=== PATIENT | male | born 1940 | race Caucasian/White ===

== ENCOUNTER 2020-12-27 11:16 | Emergency (ER) | payer MEDICARE, OTHER, MEDICAID, SELFPAY ==
--- NOTE | ~2020-12-27 | CT_ITS ---
EXAMINATION: CT ABDOMEN AND PELVIS WITHOUT CONTRAST CLINICAL INFORMATION: Abdominal symptoms. Assess for small bowel obstruction. COMPARISON: CT abdomen and pelvis noncontrast 12/30/2019 TECHNIQUE: Multidetector volumetric imaging was performed from the superior aspect of the liver through the pubic symphysis. Sagittal and coronal reformatted images were obtained on the technologist's workstation. This CT examination was performed using dose optimization techniques as appropriate, variously including the following: *Automated exposure control *Adjustment of mA and/or kV according to patient size (this includes techniques or standardized protocols for targeted exams where dose is matched to indication/reason for exam; i.e. extremities or head) *Use of iterative reconstruction technique DLP: 1032 mGy-cm FINDINGS: LUNG BASES: Accentuated interstitial markings. Cardiomegaly with AICD, similar to prior study. LIVER, GALLBLADDER, AND BILIARY TREE: Normal in size and smooth in contour and uniform in attenuation. No focal hepatic parenchymal lesion. No intrahepatic ductal dilatation. The gallbladder is unremarkable with no evidence of radiopaque gallstones, gallbladder wall thickening, or obvious pericholecystic inflammatory changes. PANCREAS: Unremarkable. SPLEEN: Unremarkable. ADRENAL GLANDS: Unremarkable. KIDNEYS AND URETERS: The kidneys show no hydronephrosis, hydroureter, or interval perinephric stranding. There are perinephric connective tissue septations similar to prior imaging. No ureteral calculi. There is nonobstructing punctate calculus upper and lower pole left kidney under 4 mm. Bilateral renal cysts are again demonstrated largest left upper pole 4.8 cm and water attenuation. There is mildly complicated cyst lateral upper pole right kidney with some trace rim calcification again seen, 3.2 cm and water attenuation. No additional imaging required. BLADDER: Unremarkable. GASTROINTESTINAL TRACT: There is no bowel obstruction or focal inflammatory changes in the bowel or mesentery. There is moderate stool throughout the colon. The appendix is normal. No small bowel dilatation, pneumatosis, or free air. No ascites or fluid collection. ABDOMINAL WALL: Small fat-containing umbilical hernia and small fat-containing inguinal hernias again noted. LYMPH NODES: No lymphadenopathy. VASCULAR: Atherosclerotic calcifications vasculature. No aneurysmal enlargement or abdominal aorta. PELVIC VISCERA: Mild prostatic enlargement with some prostatic calcifications. OSSEOUS STRUCTURES: Status post vertebral augmentation for prominent compression fracture L1 since prior CT 2019. There is also prominent compression fracture without augmentation at L2 representing new finding from prior CT 2019. There are degenerative changes in the adjacent discs with vacuum disc phenomenon and bridging anterior osteophyte. No paraspinal soft tissue swelling. CT/CT abdomen pelvis wo con IMPRESSION: 1. Moderate stool throughout colon. No bowel obstruction or focal inflammatory changes. Normal appendix. 2. No biliary ductal dilatation. No hydronephrosis. 3. Prominent compression fracture L2, new from prior CT 12/30/2019. No paraspinal soft tissue swelling. Status post vertebral augmentation L1.
[2020-12-27 11:38] VITALS: BP 119/68; BP 150/91; PULSE 62; PULSE 64; RESP 16; TEMP 36.6; O2SAT 100; O2SAT 99; BMI 27.1
--- NOTE | 2020-12-27 11:48 | ED.ABDPAIN ---
HPI - Abdominal Pain General Chief Complaint: Abdominal Pain Stated Complaint: abd pain/constipation Time Seen by Provider: 12/27/20 11:25 Source: patient (Patient has vascular dementia), EMS and old records reviewed Mode of arrival: EMS Limitations: other (Patient has vascular dementia) History of Present Illness HPI narrative: Patient is a 80-year-old male with a past medical history of vascular dementia, CHF, HTN, AFib NOT on a blood thinner (was taken off for a break 6 months ago), constipation, HLD, sick sinus syndrome status post cardiac defibrillator, with a history of an old DE who presents with 3 days of constipation. Patient states he has abdominal pain but denies shortness of breath, chest pain, fever, nausea, vomiting, urinary symptoms her bloody or black stools. EMS states that his [facility] ([facility]) did imaging and found nothing abnormal. I spoke with patient's daughter, Fouzia Irwin, she said the patient has constipation is on a bowel regimen and is constantly complaining of abdominal pain, she is worried something else is going on and it is not just constipation. And that is why they decided to send him to the emergency room today. Spoke with Fouzia at [facility], she said he had an extra large BM yesterday, had a KUB 12/03/29 which only showed mild constipation, he was evaluated by psych because he is very ?bowel obsessed but nothing significant was found. She states it has a complaint of his almost daily but due to the bowel regimen, he does produce a bowel movement regularly. His vital signs have been stable recently any he has had no fevers. Related Data Allergies Allergy/AdvReac Type Severity Reaction Status Date / Time simvastatin [Zocor] Allergy Unknown Verified 11/28/19 00:00 Sulfa (Sulfonamide Allergy Unknown Verified 11/28/19 00:00 Antibiotics) DETERGENT Allergy Mild ITCHING Uncoded 02/22/20 16:32 SEASONAL ALLERGIES Allergy Mild RUNNY NOSE Uncoded 02/22/20 16:32 SNEEZING Review of Systems Review of Systems Yes all other systems are reviewed and are negative Physical Exam Vital Signs: Vital Signs: Last Vital Signs Temp 97.9 F 12/27/20 11:38 Pulse 62 12/27/20 11:38 Resp 16 12/27/20 11:38 BP 150/91 H 12/27/20 11:38 Pulse Ox 100 12/27/20 11:38 Body Mass Index 27.1 Const: General: cooperative, healthy appearing, comfortable, no acute distress and well developed Orientation/consciousness: patient oriented x3 Limitations: no limitations HENMT: Head: Yes normal to inspection Eyes: General: appearance normal, both eyes and all related structures Neck: Neck: Yes normal visual inspection and Yes full ROM Resp: Effort & Inspection: normal respiratory effort and able to speak in complete sentences Auscultation: clear to auscultation bilaterally Cardio: Rate: regular rate Rhythm: regular rhythm Heart sounds: normal S1 and S2 GI: Inspection: Yes normal to inspection Palpation (GI): Soft to palpation and nontender Skin: General skin exam: no rashes or lesions noted Neuro: General: patient oriented x3 Extrem: General: Yes normal to inspection Course Course Course Narrative: Patient is a 80-year-old male with a past medical history of vascular dementia, CHF, HTN, AFib not on a blood thinner, constipation, HLD, sick sinus syndrome status post cardiac defibrillator, with a history of an old DE who presents with 3 days of constipation. VSS, patient is well-appearing. Will get basic labs, give 1 L of LR, bisacodyl as well as lactulose. Reevaluation(s) Reevaluation #1: Spoke with the patient's daughter and the SNF, patient is wrong, he did have an extra large bowel movement yesterday. Will get abdominal CT scan as the the issue is not constipation, the issue is his chronic abdominal pain. Time: 12:00 Reevaluation #2: Labs all within normal limits except BUN 19 and Cr 1.46, slightly bump/CARLA, pending CT scan. Spoke with patient's daughter, reviewed his bowel regimen, he is currently on these ago deal p.o. and p.r., Colace, Fleet enema, lactulose (two different strengths), Maalox, MiraLax, senna and simethicone. I recommended bringing him to a GI doctor to have these meds reviewed to figure out which ones he actually needs according to the reason for his constipation and maybe he is on too many and this could be the source of his abdominal pain. Time: 13:32 Time: 13:48 MDM - Abdominal Pain Medical Records Attestation: I reviewed the patient's medical records. Lab Data Attestation: I reviewed the patient's lab results. Result diagrams: 12/27/20 12:10 12/27/20 12:10 Labs: Lab Results 12/27/20 12/27/20 12/27/20 Range/Units 12:10 12:10 12:10 WBC 5.1 (4.8-10.8) X10*3/uL RBC 4.21 L (4.60-5.80) X10*6/uL Hgb 13.2 L (14.0-18.0) g/dl Hct 41.1 L (42-52) % MCV 97.6 (80-98) fL MCH 31.4 (27.0-33.0) pg MCHC 32.1 (31.0-36.0) g/dl RDW 13.8 (11.0-16.0) % Plt Count 204 (160-400) X10*3/uL MPV 8.2 L (9.4-12.4) fL Immature Gran % (Auto) 0.6 H (0.0-0.4) % Neut % (Auto) 69.3 (45-73) % Lymph % (Auto) 15.0 L (20-40) % [place] % (Auto) 10.2 (2-11) % Eos % (Auto) 4.3 H (0-4) % Baso % (Auto) 0.6 (0-2) % Lymph # (Auto) 0.8 L (1.2-4.9) X10*3/uL [place] # (Auto) 0.5 (0.1-1.2) X10*3/uL Eos # (Auto) 0.2 (0.0-0.4) X10*3/uL Baso # (Auto) 0.0 (0.0-0.2) X10*3/uL Abs Immat Gran (auto) 0.03 (0.00-0.03) X10*3/uL Absolute Neuts (auto) 3.6 (2.0-8.3) X10*3/uL Absolute Nucleated RBC 0.000 (0.0-0.012) X10*3/uL Nucleated RBC % (auto) 0.0 (0.0-0.2) /100WBC PT 12.8 (9.9-13.0) SEC INR 1.1 (0.9-1.1) APTT 32.2 (24.1-38.0) SEC Sodium 136 (135-145) mmol/L Potassium 4.8 (3.3-5.1) mmol/L Chloride 104 (96-108) mmol/L Carbon Dioxide 25 (22-29) mmol/L Anion Gap 12 (12-20) BUN 19 H (9-16) mg/dL Creatinine 1.46 H (0.5-1.4) mg/dL Estim Creat Clear Calc 43.5 Estimated GFR 46 Random Glucose 106 (60-115) mg/dL Calcium 9.2 (8.4-10.2) mg/dL Urine Color Urine Appearance Urine pH (5.0-8.0) Ur Specific [place] (1.005-1.025) Urine Protein (NEG-TRACE) MG/DL Urine Glucose (UA) (NEG) MG/DL Urine Ketones (NEG) MG/DL Urine Blood (NEG) Urine Nitrite (NEG) Ur Leukocyte Esterase (NEG) 12/27/20 Range/Units 12:33 WBC (4.8-10.8) X10*3/uL RBC (4.60-5.80) X10*6/uL Hgb (14.0-18.0) g/dl Hct (42-52) % MCV (80-98) fL MCH (27.0-33.0) pg MCHC (31.0-36.0) g/dl RDW (11.0-16.0) % Plt Count (160-400) X10*3/uL MPV (9.4-12.4) fL Immature Gran % (Auto) (0.0-0.4) % Neut % (Auto) (45-73) % Lymph % (Auto) (20-40) % [place] % (Auto) (2-11) % Eos % (Auto) (0-4) % Baso % (Auto) (0-2) % Lymph # (Auto) (1.2-4.9) X10*3/uL [place] # (Auto) (0.1-1.2) X10*3/uL Eos # (Auto) (0.0-0.4) X10*3/uL Baso # (Auto) (0.0-0.2) X10*3/uL Abs Immat Gran (auto) (0.00-0.03) X10*3/uL Absolute Neuts (auto) (2.0-8.3) X10*3/uL Absolute Nucleated RBC (0.0-0.012) X10*3/uL Nucleated RBC % (auto) (0.0-0.2) /100WBC PT (9.9-13.0) SEC INR (0.9-1.1) APTT (24.1-38.0) SEC Sodium (135-145) mmol/L Potassium (3.3-5.1) mmol/L Chloride (96-108) mmol/L Carbon Dioxide (22-29) mmol/L Anion Gap (12-20) BUN (9-16) mg/dL Creatinine (0.5-1.4) mg/dL Estim Creat Clear Calc Estimated GFR Random Glucose (60-115) mg/dL Calcium (8.4-10.2) mg/dL Urine Color YELLOW Urine Appearance CLEAR Urine pH 6.0 (5.0-8.0) Ur Specific [place] 1.010 (1.005-1.025) Urine Protein NEG (NEG-TRACE) MG/DL Urine Glucose (UA) NEG (NEG) MG/DL Urine Ketones NEG (NEG) MG/DL Urine Blood NEG (NEG) Urine Nitrite NEG (NEG) Ur Leukocyte Esterase NEG (NEG) Imaging Data CT scan - abdomen: Attestation: I personally reviewed and interpreted this imaging study as follows: Radiologist's impression: [address] Scan ReportSigned Patient: Bjorn Irwin RMR#: [id number]: 9Acct:[id number]/Sex: 80 / MADM Date: 12/27/20Loc: [address] Dr: Ordering Physician: Kimmy Blank PA-C Date of Service: 12/27/20 Procedure(s): CT abdomen pelvis wo con Accession Number(s): [id number] cc: Kimmy Blank PA-C~ EXAMINATION: CT ABDOMEN AND PELVIS WITHOUT CONTRAST CLINICAL INFORMATION: Abdominal symptoms. Assess for small bowel obstruction. COMPARISON: CT abdomen and pelvis noncontrast 12/30/2019 TECHNIQUE: Multidetector volumetric imaging was performed from the superior aspect of the liver through the pubic symphysis. Sagittal and coronal reformatted images were obtained on the technologist's workstation. This CT examination was performed using dose optimization techniques as appropriate, variously including the following: *Automated exposure control *Adjustment of mA and/or kV according to patient size (this includes techniques or standardized protocols for targeted exams where dose is matched to indication/reason for exam; i.e. extremities or head) *Use of iterative reconstruction technique DLP: 1032 mGy-cm FINDINGS: LUNG BASES: Accentuated interstitial markings. Cardiomegaly with AICD, similar to prior study. LIVER, GALLBLADDER, AND BILIARY TREE: Normal in size and smooth in contour and uniform in attenuation. No focal hepatic parenchymal lesion. No intrahepatic ductal dilatation. The gallbladder is unremarkable with no evidence of radiopaque gallstones, gallbladder wall thickening, or obvious pericholecystic inflammatory changes. PANCREAS: Unremarkable. SPLEEN: Unremarkable. ADRENAL GLANDS: Unremarkable. KIDNEYS AND URETERS: The kidneys show no hydronephrosis, hydroureter, or interval perinephric stranding. There are perinephric connective tissue septations similar to prior imaging. No ureteral calculi. There is nonobstructing punctate calculus upper and lower pole left kidney under 4 mm. Bilateral renal cysts are again demonstrated largest left upper pole 4.8 cm and water attenuation. There is mildly complicated cyst lateral upper pole right kidney with some trace rim calcification again seen, 3.2 cm and water attenuation. No additional imaging required. BLADDER: Unremarkable. GASTROINTESTINAL TRACT: There is no bowel obstruction or focal inflammatory changes in the bowel or mesentery. There is moderate stool throughout the colon. The appendix is normal. No small bowel dilatation, pneumatosis, or free air. No ascites or fluid collection. ABDOMINAL WALL: Small fat-containing umbilical hernia and small fat-containing inguinal hernias again noted. LYMPH NODES: No lymphadenopathy. VASCULAR: Atherosclerotic calcifications vasculature. No aneurysmal enlargement or abdominal aorta. PELVIC VISCERA: Mild prostatic enlargement with some prostatic calcifications. OSSEOUS STRUCTURES: Status post vertebral augmentation for prominent compression fracture L1 since prior CT 2019. There is also prominent compression fracture without augmentation at L2 representing new finding from prior CT 2019. There are degenerative changes in the adjacent discs with vacuum disc phenomenon and bridging anterior osteophyte. No paraspinal soft tissue swelling. CT/CT abdomen pelvis wo con IMPRESSION: 1. Moderate stool throughout colon. No bowel obstruction or focal inflammatory changes. Normal appendix. 2. No biliary ductal dilatation. No hydronephrosis. 3. Prominent compression fracture L2, new from prior CT 12/30/2019. No paraspinal soft tissue swelling. Status post vertebral augmentation L1. Dictated By:ROWENA ESPINOZA MDSigned By:<Electronically signed by ROWENA ESPINOZA MD in OV>12/27/20 1336 DD/ 1210TD/TT: S[employer] Supervisor: SOLO Discharge Plan Discharge Clinical Impression: Chronic constipation, CARLA (acute kidney injury) Abdominal pain Qualifiers: Abdominal location: periumbilical Qualified Code(s): R10.33 - Periumbilical pain Patient Disposition: Xfer SNF Transfer Details: Patient lives at [facility] Instructions: Abdominal Pain (ED) Additional Instructions: Today, the patient's labs were reflective of a slight CARLA, his BUN was elevated at 19 and his Cr was 1.46, please repeat these labs on Wednesday to ensure they have gone back down to the normal range. Again, they are just a small bump above normal and is likely due to a little bit of dehydration. I have put a referral in for GI doctor so the patient can review his bowel regimen with the GI doctor to figure out why he is chronically constipated and which meds would be best for him. His bowel regimen is quite comprehensive and could be the source of his abdominal pain. The abdominal and pelvic CT scan was negative for any acute issues. The only change was a prominent compression fracture at L2 which the patient's daughter said they are aware of. Referrals: Kristan Valera MD [Physician] - 2 days (chronic abdominal pain and constipation, need to review bowel regimen) [facility] Past Medical History Medical History Afib Cardiac defibrillator in place CHF (congestive heart failure) Constipation Coronary artery disease HLD (hyperlipidemia) HTN (hypertension) Low back pain Myocardial infarct Osteoporosis Sick sinus syndrome Vascular dementia Vitamin D deficiency Social History Social History Alcohol intake: never Patient Tobacco Use Status: Never used Tobacco Use of substances other than those prescribed or required for medical reasons: No Advance Directives: No Advance Directives Information Provided: Yes
[2020-12-27] MEDS: Lactulose 20 GM/30 ML SOLUTION PO (11:50)
[2020-12-27] MEDS: bisacodyL 5 MG TABLET.DR PO (11:50)
[2020-12-27 12:15] LABS: MANUAL DIFF FLAG NO
[2020-12-27 12:23] LABS: INTERNATIONAL NORM RATIO 1.1 (0.9-1.1); Prothrombin Time 12.8 SEC (9.9-13.0)
[2020-12-27 12:25] LABS: Partial Thromboplastin Time 32.2 SEC (24.1-38.0)
[2020-12-27 12:28] LABS: Basophils Percent Auto 0.6 % (0-2); Eosinophils Absolute Auto 0.2 X10*3/uL (0.0-0.4); Eosinophils Percent Auto 4.3 % (0-4); Hematocrit 41.1 % (42-52); Hemoglobin 13.2 g/dl (14.0-18.0); Imm Gran Abs Auto 0.03 X10*3/uL (0.00-0.03); Imm Gran Pct Auto 0.6 % (0.0-0.4); Lymphocytes Absolute Auto 0.8 X10*3/uL (1.2-4.9); Mean Corpuscular HGB Conc 32.1 g/dl (31.0-36.0); Mean Corpuscular Hemoglobin 31.4 pg (27.0-33.0); Mean Corpuscular Volume 97.6 fL (80-98); Mean Platelet Volume 8.2 fL (9.4-12.4); Monocytes Absolute Auto 0.5 X10*3/uL (0.1-1.2); Monocytes Percent Auto 10.2 % (2-11); Neutrophils Absolute Auto 3.6 X10*3/uL (2.0-8.3); Neutrophils Percent Auto 69.3 % (45-73); Platelet Count 204 X10*3/uL (160-400); Red Blood Count 4.21 X10*6/uL (4.60-5.80); Red Cell Distribution Width 13.8 % (11.0-16.0); White Blood Count 5.1 X10*3/uL (4.8-10.8)
[2020-12-27 12:41] LABS: Appearance Urine CLEAR; Color Urine YELLOW; Glucose Urine UA NEG (NEG); Leukocyte Esterase Urine NEG (NEG); Nitrite Urine NEG (NEG); Urine Blood NEG (NEG); Urine Ketones NEG (NEG); Urine Protein NEG (NEG-TRACE)
[2020-12-27 12:52] LABS: Anion Gap 12 (12-20); Blood Urea Nitrogen 19 mg/dL (9-16); Calcium 9.2 mg/dL (8.4-10.2); Carbon Dioxide 25 mmol/L (22-29); Chloride 104 mmol/L (96-108); Creatinine Clr Calc Pharmacy 43.5; Estimated Glomerular Filt Rate 46; Glucose Random 106 mg/dL (60-115); Potassium 4.8 mmol/L (3.3-5.1); Sodium 136 mmol/L (135-145)
== END 2020-12-27 15:48 | disposition skilled nursing facility (03) ==
PROVIDERS: Physician Assistant; Emergency Provider Emergency Medicine Emergency Medical Services; PCP Family Medicine
DX: K59.09 Other constipation (principal); N17.9 Acute kidney failure, unspecified; R10.33 Periumbilical pain; I48.91 Unspecified atrial fibrillation; I11.0 Hypertensive heart disease with heart failure; I50.9 Heart failure, unspecified; I25.2 Old myocardial infarction; Z95.810 Presence of automatic (implantable) cardiac defibrillator
CPT/HCPCS: 36415; 74176; 80048; 81003; 85025; 85610; 85730; 96360; 99284

== ENCOUNTER → 2021-02-04 14:44 | Outpatient (BNVA) | payer MEDICARE, OTHER, SELFPAY | PROVIDERS: PCP Family Medicine; Referring Provider Family Medicine; Visit Provider Nurse Practitioner Family | DX: K58.1 Irritable bowel syndrome with constipation (principal); R10.9 Unspecified abdominal pain; R14.0 Abdominal distension (gaseous) | CPT/HCPCS: 99202 ==

== ENCOUNTER → 2021-03-04 15:02 | Outpatient (BNVA) | payer MEDICARE, OTHER, SELFPAY | PROVIDERS: PCP Family Medicine; Referring Provider Family Medicine; Visit Provider Nurse Practitioner Family | DX: K59.04 Chronic idiopathic constipation (principal); K58.1 Irritable bowel syndrome with constipation; R10.9 Unspecified abdominal pain | CPT/HCPCS: 99212 ==

== ENCOUNTER 2021-05-20 06:03 | Inpatient (IN) | payer MEDICARE, OTHER, SELFPAY ==
[2021-05-20] VITALS (10 sets, daily range): BP systolic 137–199; BP diastolic 63–100; PULSE 55–67; RESP 18–34; TEMP 36.1–36.7; O2SAT 94–99; BMI 27.1; BMI 25.8
--- NOTE | ~2021-05-20 | CT_ITS ---
EXAMINATION: CT HEAD WITHOUT CONTRAST CLINICAL INFORMATION: AMS and hypoxia COMPARISON: None TECHNIQUE: Contiguous axial imaging was performed from the skull base to vertex without intravenous administration of contrast. This CT examination was performed using dose optimization techniques as appropriate, variously including the following: *Automated exposure control *Adjustment of mA and/or kV according to patient size (this includes techniques or standardized protocols for targeted exams where dose is matched to indication/reason for exam; i.e. extremities or head) *Use of iterative reconstruction technique DLP: 1745 mGy-cm FINDINGS: There is no evidence of acute intracranial hemorrhage or territorial infarction. No abnormal mass effect or midline shift is seen. Chen to white matter differentiation is well preserved. No extra-axial fluid collections are identified. The lateral ventricles are symmetrical but enlarged. There is diffuse periarticular hypodensity suggestive of chronic small vessel ischemic changes. The osseous structures and soft tissues are normal. The mastoid air cells and visualized portions of the paranasal sinuses are well aerated. CT/CT head/brain wo con IMPRESSION: No acute intracranial process seen.
--- NOTE | ~2021-05-20 | XR_ITS ---
EXAMINATION: XR CHEST CLINICAL INFORMATION: Shortness of breath. COMPARISON: 05/17/2018 TECHNIQUE: Frontal view of the chest was obtained. FINDINGS: Left chest wall pacer is unchanged. Low lung volumes. Increased patchy bilateral airspace opacities. Small right pleural effusion noted. No pneumothorax. The cardiomediastinal silhouette and appears prominent with a calcified aorta. XR/XR chest 1V IMPRESSION: Small right pleural effusion. Patchy bilateral opacities could be infectious or inflammatory. Edema is also a possibility.
--- NOTE | 2021-05-20 06:15 | ECG_ITS ---
Test Reason : SOB Blood Pressure : / mmHG Vent. Rate : 059 BPM Atrial Rate : 067 BPM P-R Int : 000 ms QRS Dur : 132 ms QT Int : 478 ms P-R-T Axes : 000 036 238 degrees QTc Int : 473 ms Poor data quality Atrial fibrillation Non-specific intra-ventricular conduction block Cannot rule out Inferior infarct (cited on or before 01-AUG-2002) Cannot rule out Anteroseptal infarct (cited on or before 03-AUG-2002) T wave abnormality, consider lateral ischemia Abnormal ECG When compared with ECG of 30-DEC-2019 05:56, QRS duration has increased Referred By: Brianna Garay Electronically Signed By:ANA PETTIT MD
[2021-05-20 06:31] LABS: MANUAL DIFF FLAG NO
[2021-05-20 06:32] LABS: Basophils Percent Auto 0.4 % (0-2); Eosinophils Absolute Auto 0.2 X10*3/uL (0.0-0.4); Eosinophils Percent Auto 2.5 % (0-4); Hematocrit 44.6 % (42.0-52.0); Hemoglobin 13.8 g/dl (14.0-18.0); Imm Gran Abs Auto 0.02 X10*3/uL (0.00-0.03); Imm Gran Pct Auto 0.3 % (0.0-0.4); Lymphocytes Absolute Auto 0.9 X10*3/uL (1.2-4.9); Lymphocytes Percent Auto 12.6 % (20-40); Mean Corpuscular HGB Conc 30.9 g/dl (31.0-36.0); Mean Corpuscular Hemoglobin 30.5 pg (27.0-33.0); Mean Corpuscular Volume 98.5 fL (80.0-98.0); Mean Platelet Volume 9.4 fL (9.4-12.4); Monocytes Absolute Auto 0.8 X10*3/uL (0.1-1.2); Monocytes Percent Auto 11.6 % (2-11); Neutrophils Percent Auto 72.6 % (45-73); Platelet Count 150 X10*3/uL (160-400); Red Blood Count 4.53 X10*6/uL (4.60-5.80); Red Cell Distribution Width 14.7 % (11.0-16.0); White Blood Count 6.9 X10*3/uL (4.8-10.8)
[2021-05-20 06:36] LABS: Venous Blood Gas Refer to POC result
[2021-05-20 06:38] LABS: VBG Base Excess 0.4 mmol/L; VBG HCO3 21 mmol/L (22-26); VBG pCO2 26 mmHg; VBG pH 7.51 (7.32-7.43); VBG pO2 62 mmHg
[2021-05-20 06:43] LABS: Lactic Acid 1.4 mmol/L (0.5-2.0)
[2021-05-20 06:46] LABS: COVID-19 Test Negative (Negative); IDNOW Serial# 9DD0AD1C
[2021-05-20 06:49] LABS: Alanine Aminotransferase 22 U/L (0-40); Albumin Level 3.6 g/dL (3.5-5.0); Alkaline Phosphatase 103 U/L (39-117); Anion Gap 16 (12-20); Aspartate Amino Transferase 43 U/L (5-37); Bilirubin Total 2.2 mg/dL (0.0-1.0); Blood Urea Nitrogen 28 mg/dL (9-16); Calcium 8.7 mg/dL (8.4-10.2); Carbon Dioxide 21 mmol/L (22-29); Chloride 113 mmol/L (96-108); Creatinine Clr Calc Pharmacy 43.2; Estimated Glomerular Filt Rate 46; Glucose Random 78 mg/dL (60-115); Potassium 4.5 mmol/L (3.3-5.1); Sodium 145 mmol/L (135-145); Total Protein 7.2 g/dL (6.5-8.0)
[2021-05-20 06:49] LABS: INTERNATIONAL NORM RATIO 1.3 (0.9-1.1); Prothrombin Time 14.5 SEC (9.9-13.0)
--- NOTE | 2021-05-20 06:49 | ED_ITS ---
HPI - SOB/Dyspnea General Chief Complaint: Dyspnea Stated Complaint: sob Time Seen by Provider: 05/20/21 06:15 Source: EMS Mode of arrival: EMS Limitations: altered mental status History of Present Illness HPI Narrative: Patient [facility] the emergency room [facility] since the patient was sleeping in early today, the staff at the nursing facility phone him with an oxygen saturation in the mid 80s, not in respiratory distress. EMS for the patient on 4 L which increased to 95%. Fadia ent is nonverbal at baseline. Related Data Home Medications Medication Instructions Recorded Confirmed alendronate 70 mg tablet 70 mg PO QWEEK 02/04/21 amiodarone 200 mg tablet 200 mg PO DAILY 02/04/21 atorvastatin 40 mg tablet 40 mg PO DAILY 02/04/21 carvedilol 3.125 mg tablet 3.125 mg PO BID 02/04/21 carvedilol 6.25 mg tablet 6.25 mg PO BID 02/04/21 fluvoxamine 100 mg tablet 100 mg PO BEDTIME 02/04/21 fluvoxamine 50 mg tablet 50 mg PO BEDTIME 02/04/21 folic acid 1 mg tablet 1 mg PO DAILY 02/04/21 furosemide 40 mg tablet 40 mg PO DAILY 02/04/21 lactulose 10 gram/15 mL oral ml PO 02/04/21 solution mirtazapine 15 mg tablet 7.5 mg PO DAILY 02/04/21 mirtazapine 7.5 mg tablet 7.5 mg PO BEDTIME 02/04/21 omeprazole 20 mg capsule,delayed 20 mg PO BID 02/04/21 release potassium chloride 10 mEq 10 meq PO BID 02/04/21 tablet,extended release(part/cryst) potassium chloride 20 mEq 20 meq PO DAILY 02/04/21 tablet,extended release(part/cryst) quetiapine 25 mg tablet mg PO 02/04/21 trazodone 50 mg tablet 50 mg PO BEDTIME 02/04/21 Previous Rx's Medication Instructions Recorded methylcellulose (laxative) 500 mg 500 mg PO DAILY #30 tab 02/04/21 tablet (Citrucel) sennosides 8.6 mg tablet (Natural 8.6 mg PO BEDTIME #30 tab 02/04/21 Senna Laxative) linaclotide 290 mcg capsule 290 mcg PO QAM #30 cap 03/04/21 (Linzess) Allergies Allergy/AdvReac Type Severity Reaction Status Date / Time simvastatin [Zocor] Allergy Unknown Unknown Verified 03/04/21 15:12 Sulfa (Sulfonamide Allergy Unknown Unknown Verified 03/04/21 15:12 Antibiotics) DETERGENT Allergy Mild ITCHING Uncoded 02/22/20 16:32 SEASONAL ALLERGIES Allergy Mild RUNNY NOSE Uncoded 02/22/20 16:32 SNEEZING Review of Systems Review of Systems: Yes Unobtainable due to mental condition [facility] Past Medical History Medical History Afib Cardiac defibrillator in place CHF (congestive heart failure) Constipation Coronary artery disease HLD (hyperlipidemia) HTN (hypertension) Low back pain Myocardial infarct Osteoporosis Sick sinus syndrome Vascular dementia Vitamin D deficiency Social History Social History Alcohol intake: never Patient Tobacco Use Status: Never used Tobacco Advance Directives: No Advance Directives Information Provided: Yes Physical Exam Vital Signs: Vital Signs: Last Vital Signs Temp 97.7 F 05/20/21 06:20 Pulse 60 05/20/21 07:31 Resp 18 05/20/21 07:31 BP 146/79 H 05/20/21 07:31 Pulse Ox 94 05/20/21 07:31 Oxygen Flow Rate 4 05/20/21 06:20 BMI result Body Mass Index 27.1 Const: Other: Appearance: Somnolent, with subcu sternal rub. Eyes: Pupils equal, round and reactive to light. ENT: Pharynx normal. Neck: Normal inspection. Neck supple. No lymph nodes noted. No crepitus CVS: Normal heart rate and rhythm. Pulses normal. Normal S1 and S2 Respiratory: No respiratory distress. Breath sounds normal. No Wheezing. No rales . Patient is 95% on room air. When he eats his oxygen does drop to the high 80s, but repositions and the oxygen increases back to the mid 90s on room air Abdomen: Soft and nontender. No rigidity. No distention. Skin: Skin warm and dry. Normal skin color. Normal skin turgor. Extremities: No lower extremity edema. No Lacerations. No Rash Neuro: Oriented X 3. No motor deficit. No sensory deficit. Moving all extermities. No slurred speech. Course Course Course Narrative: Patient has an elevated BNP of 1700. Patient's chest x-ray shows right pleural effusions, likely causing the episodes of hypoxia. Patient being admitted for CHF exacerbation. Patient was given 40 mg of IV Lasix MDM - SOB/Dyspnea Lab Data Result diagrams: 05/20/21 06:25 05/20/21 06:25 Labs: Lab Results 05/20/21 05/20/21 05/20/21 Range/Units 06:25 06:25 06:25 WBC 6.9 (4.8-10.8) X10*3/uL RBC 4.53 L (4.60-5.80) X10*6/uL Hgb 13.8 L (14.0-18.0) g/dl Hct 44.6 (42.0-52.0) % MCV 98.5 H (80.0-98.0) fL MCH 30.5 (27.0-33.0) pg MCHC 30.9 L (31.0-36.0) g/dl RDW 14.7 (11.0-16.0) % Plt Count 150 L (160-400) X10*3/uL MPV 9.4 (9.4-12.4) fL Immature Gran % (Auto) 0.3 (0.0-0.4) % Neut % (Auto) 72.6 (45-73) % Lymph % (Auto) 12.6 L (20-40) % [place] % (Auto) 11.6 H (2-11) % Eos % (Auto) 2.5 (0-4) % Baso % (Auto) 0.4 (0-2) % Lymph # (Auto) 0.9 L (1.2-4.9) X10*3/uL [place] # (Auto) 0.8 (0.1-1.2) X10*3/uL Eos # (Auto) 0.2 (0.0-0.4) X10*3/uL Baso # (Auto) 0.0 (0.0-0.2) X10*3/uL Abs Immat Gran (auto) 0.02 (0.00-0.03) X10*3/uL Absolute Neuts (auto) 5.0 (2.0-8.3) x10*3/uL Absolute Nucleated RBC 0.000 (0.0-0.012) X10*3/uL Nucleated RBC % (auto) 0.0 (0.0-0.2) /100WBC PT (9.9-13.0) SEC INR (0.9-1.1) VBG pH (7.32-7.43) VBG pCO2 mmHg VBG pO2 mmHg VBG HCO3 (22-26) mmol/L VBG O2 Saturation % VBG Base Excess mmol/L Sodium 145 (135-145) mmol/L Potassium 4.5 (3.3-5.1) mmol/L Chloride 113 H (96-108) mmol/L Carbon Dioxide 21 L (22-29) mmol/L Anion Gap 16 (12-20) BUN 28 H (9-16) mg/dL Creatinine 1.47 H (0.5-1.4) mg/dL Estim Creat Clear Calc 43.2 Estimated GFR 46 Random Glucose 78 (60-115) mg/dL Lactic Acid (0.5-2.0) mmol/L Calcium 8.7 (8.4-10.2) mg/dL Total Bilirubin 2.2 H (0.0-1.0) mg/dL AST 43 H (5-37) U/L ALT 22 (0-40) U/L Alkaline Phosphatase 103 (39-117) U/L B-Natriuretic Peptide 1788 H (<100) pg/mL Total Protein 7.2 (6.5-8.0) g/dL Albumin 3.6 (3.5-5.0) g/dL COVID-19 (KYLE) (Negative) COVID-19 Clin Com 05/20/21 05/20/21 05/20/21 Range/Units 06:25 06:25 06:28 WBC (4.8-10.8) X10*3/uL RBC (4.60-5.80) X10*6/uL Hgb (14.0-18.0) g/dl Hct (42.0-52.0) % MCV (80.0-98.0) fL MCH (27.0-33.0) pg MCHC (31.0-36.0) g/dl RDW (11.0-16.0) % Plt Count (160-400) X10*3/uL MPV (9.4-12.4) fL Immature Gran % (Auto) (0.0-0.4) % Neut % (Auto) (45-73) % Lymph % (Auto) (20-40) % [place] % (Auto) (2-11) % Eos % (Auto) (0-4) % Baso % (Auto) (0-2) % Lymph # (Auto) (1.2-4.9) X10*3/uL [place] # (Auto) (0.1-1.2) X10*3/uL Eos # (Auto) (0.0-0.4) X10*3/uL Baso # (Auto) (0.0-0.2) X10*3/uL Abs Immat Gran (auto) (0.00-0.03) X10*3/uL Absolute Neuts (auto) (2.0-8.3) x10*3/uL Absolute Nucleated RBC (0.0-0.012) X10*3/uL Nucleated RBC % (auto) (0.0-0.2) /100WBC PT (9.9-13.0) SEC INR (0.9-1.1) VBG pH 7.51 H (7.32-7.43) VBG pCO2 26 mmHg VBG pO2 62 mmHg VBG HCO3 21 L (22-26) mmol/L VBG O2 Saturation 85.0 % VBG Base Excess 0.4 mmol/L Sodium (135-145) mmol/L Potassium (3.3-5.1) mmol/L Chloride (96-108) mmol/L Carbon Dioxide (22-29) mmol/L Anion Gap (12-20) BUN (9-16) mg/dL Creatinine (0.5-1.4) mg/dL Estim Creat Clear Calc Estimated GFR Random Glucose (60-115) mg/dL Lactic Acid 1.4 (0.5-2.0) mmol/L Calcium (8.4-10.2) mg/dL Total Bilirubin (0.0-1.0) mg/dL AST (5-37) U/L ALT (0-40) U/L Alkaline Phosphatase (39-117) U/L B-Natriuretic Peptide (<100) pg/mL Total Protein (6.5-8.0) g/dL Albumin (3.5-5.0) g/dL COVID-19 (KYLE) Negative (Negative) COVID-19 Clin Com See Note 05/20/21 Range/Units 06:37 WBC (4.8-10.8) X10*3/uL RBC (4.60-5.80) X10*6/uL Hgb (14.0-18.0) g/dl Hct (42.0-52.0) % MCV (80.0-98.0) fL MCH (27.0-33.0) pg MCHC (31.0-36.0) g/dl RDW (11.0-16.0) % Plt Count (160-400) X10*3/uL MPV (9.4-12.4) fL Immature Gran % (Auto) (0.0-0.4) % Neut % (Auto) (45-73) % Lymph % (Auto) (20-40) % [place] % (Auto) (2-11) % Eos % (Auto) (0-4) % Baso % (Auto) (0-2) % Lymph # (Auto) (1.2-4.9) X10*3/uL [place] # (Auto) (0.1-1.2) X10*3/uL Eos # (Auto) (0.0-0.4) X10*3/uL Baso # (Auto) (0.0-0.2) X10*3/uL Abs Immat Gran (auto) (0.00-0.03) X10*3/uL Absolute Neuts (auto) (2.0-8.3) x10*3/uL Absolute Nucleated RBC (0.0-0.012) X10*3/uL Nucleated RBC % (auto) (0.0-0.2) /100WBC PT 14.5 H (9.9-13.0) SEC INR 1.3 H (0.9-1.1) VBG pH (7.32-7.43) VBG pCO2 mmHg VBG pO2 mmHg VBG HCO3 (22-26) mmol/L VBG O2 Saturation % VBG Base Excess mmol/L Sodium (135-145) mmol/L Potassium (3.3-5.1) mmol/L Chloride (96-108) mmol/L Carbon Dioxide (22-29) mmol/L Anion Gap (12-20) BUN (9-16) mg/dL Creatinine (0.5-1.4) mg/dL Estim Creat Clear Calc Estimated GFR Random Glucose (60-115) mg/dL Lactic Acid (0.5-2.0) mmol/L Calcium (8.4-10.2) mg/dL Total Bilirubin (0.0-1.0) mg/dL AST (5-37) U/L ALT (0-40) U/L Alkaline Phosphatase (39-117) U/L B-Natriuretic Peptide (<100) pg/mL Total Protein (6.5-8.0) g/dL Albumin (3.5-5.0) g/dL COVID-19 (KYLE) (Negative) COVID-19 Clin Com Discharge Plan Discharge Clinical Impression: Congestive heart failure Patient Disposition: Admitted As Inpatient Prescriptions: No Action Citrucel 500 mg tablet 500 mg PO DAILY Qty: 30 RF: 2 sennosides [Natural Senna Laxative] 8.6 mg tablet 8.6 mg PO BEDTIME Qty: 30 RF: 2 Linzess 290 mcg capsule 290 mcg PO QAM Qty: 30 RF: 4
[2021-05-20 07:18] LABS: B Type Natriuretic Peptide 1788 pg/mL (<100)
[2021-05-20 08:52] LABS: Troponin-I High Sensitivity 23.2 ng/L (<3.5-35.0)
[2021-05-20 08:54] LABS: Appearance Urine CLEAR; Color Urine YELLOW; Glucose Urine UA NEG (NEG); Leukocyte Esterase Urine NEG (NEG); Nitrite Urine NEG (NEG); PH 5.5 (5.0-8.0); Specific Gravity - Urine 1.025 (1.005-1.025); Urine Blood NEG (NEG); Urine Ketones 5 MG/DL (NEG); Urine Protein NEG (NEG-TRACE)
--- NOTE | 2021-05-20 09:05 | PM.IMHP ---
History of Present Illness Date of Service: 05/20/21 Chief Complaint: hypoxia This is an 80 yo M with a PMH as outlined below who is a resident at a local long term facility. He is brought in by ambulace due to hypoxia at the SNF. History is obtained from the ED provider's notes and phone conversation with the patients daughters notes as the patient is currently unable to give any meaningful history. Reportely, at the SNF -- the patient was noted to have some hypoxia in the 80s (on RA) while sleeping. This did not improve and so paramedics were called. He was placed on 4L oxygen by [place] with improvement of his oxygen saturation into the 90s. Upon arrival to the ED -- the patient had stable oxygenation on 3-4L. His other vital signs were also acceptable. His work up in the ED showed an elevated BNP and a chest XR suggestive of CHF. He was given a dose of IV lasix 40 and admission was requested. Per the discussion with the patients daughters (both of whom are health care proxys) -- their father was treated for a pneumonia over the last 1-2 weeks. His daughter Fouzia, who lives locally, has noticed that since , he has become less active and at times visibly short of breath. He was also more confused than his baseline. When I saw the patient in the ED, he was asleep. He did move to painful stimuli, but was not speaking. Review of Systems Review of Systems: unable to obtain due to patients current mental status [facility] Medical History Afib Cardiac defibrillator in place CHF (congestive heart failure) Constipation Coronary artery disease HLD (hyperlipidemia) HTN (hypertension) Low back pain Myocardial infarct Osteoporosis Sick sinus syndrome Vascular dementia Vitamin D deficiency Family History (Updated 05/20/21 @ 09:11 by Carmelo Colby MD) Other CAD (coronary artery disease) Pertinent family history: CAD in his father and son Surgical History (Updated 05/20/21 @ 09:12 by Carmelo Colby MD) History of permanent cardiac pacemaker placement Social History Alcohol intake: never Patient Tobacco Use Status: Never used Tobacco Meds Allergies Allergy/AdvReac Type Severity Reaction Status Date / Time simvastatin [Zocor] Allergy Unknown Unknown Verified 03/04/21 15:12 Sulfa (Sulfonamide Allergy Unknown Unknown Verified 03/04/21 15:12 Antibiotics) DETERGENT Allergy Mild ITCHING Uncoded 02/22/20 16:32 SEASONAL ALLERGIES Allergy Mild RUNNY NOSE Uncoded 02/22/20 16:32 SNEEZING Active Medications: Current Medications Acetaminophen (Acetaminophen 325 Mg Tablet) 650 mg PO Q6H PRN PRN Reason: Pain, Mild (Pain Scale 1-3) Furosemide (Furosemide 40 Mg/4 Ml Vial) 40 mg IVPUSH BID@0900,1800 [facility]; Protocol Pharmacy Consult (Consult Rx Perform Med Rec) 1 each MISCELLANE ONCE PRN PRN Reason: Consult order Sodium Chloride (0.9 % Sodium Chloride Flush 3 Ml Syringe) 3 ml IVFLUSH QSHIFT [facility] Home Medications Medication Instructions Recorded Confirmed Last Taken Type alendronate 70 mg tablet 70 mg PO MO 02/04/21 05/20/21 05/19/21 History amiodarone 200 mg tablet 200 mg PO DAILY 02/04/21 05/20/21 05/19/21 History atorvastatin 40 mg tablet 40 mg PO DAILY 02/04/21 05/20/21 05/19/21 History carvedilol 6.25 mg tablet 6.25 mg PO BID 02/04/21 05/20/21 05/19/21 History fluvoxamine 100 mg tablet 100 mg PO BEDTIME 02/04/21 05/20/21 05/19/21 History folic acid 1 mg tablet 1 mg PO DAILY 02/04/21 05/20/21 05/19/21 History furosemide 40 mg tablet 40 mg PO DAILY 02/04/21 05/20/21 05/19/21 History lactulose 10 gram/15 mL oral 20 ml PO DAILY PRN 02/04/21 05/20/21 Unknown History solution omeprazole 20 mg capsule,delayed 20 mg PO DAILY 02/04/21 05/20/21 05/20/21 History release potassium chloride 20 mEq 20 meq PO DAILY 02/04/21 05/20/21 05/19/21 History tablet,extended release(part/cryst) quetiapine 25 mg tablet 12.5 mg PO DAILY 02/04/21 05/20/21 05/20/21 History trazodone 50 mg tablet 50 mg PO BEDTIME 02/04/21 05/20/21 05/19/21 History acetaminophen 500 mg tablet 1,000 mg PO TID 05/20/21 05/20/21 05/20/21 History aspirin 81 mg tablet,delayed 81 mg PO DAILY 05/20/21 05/20/21 05/20/21 History release calcium carbonate 600 mg-vitamin 1 tab PO BID 05/20/21 05/20/21 05/20/21 History D3 5 mcg (200 unit) tablet (Calcium 600 + D(3)) melatonin 5 mg tablet 5 mg PO BEDTIME PRN 05/20/21 05/20/21 05/15/21 History quetiapine 25 mg tablet 25 mg PO BEDTIME 05/20/21 05/20/21 05/19/21 History sennosides 8.6 mg tablet (Natural 17.2 mg PO BEDTIME 05/20/21 05/20/21 05/19/21 History Senna Laxative) Physical Exam Vital Signs and Narrative: Vital Signs: Last Vital Signs Temp 97.7 F 05/20/21 06:20 Pulse 67 05/20/21 09:00 Resp 19 05/20/21 09:00 BP 160/71 H 05/20/21 09:00 Pulse Ox 95 05/20/21 09:00 Oxygen Flow Rate 4 05/20/21 06:20 BMI result Body Mass Index 27.1 Const: Other: Constitutional - Lethargic, responds to painful stimuli Eyes - PERRLA, EOMI Cardiovascular - S1S2, 1+ bilatera pitting edema Respiratory - Intermittent tachypnea into the low 30s otherwise breathing comfortably on 3L; dimished sounds overall Gastrointestinal - NT / ND; +BS; No rebound or guarding - No CVA tenderness Extremities - no calf tenderness bilaterally, no swelling Musculoskeletal - Normal inspection, normal ROM Skin - Warm/Dry Neurological - Lethargic, does not speak Psychological - Appropriate affect Results Labs CBC and Chem 7: 05/20/21 06:25 05/20/21 06:25 Labs: Laboratory Results - last 24 hr 05/20/21 05/20/21 05/20/21 06:25 06:25 06:25 MCV 98.5 H MCH 30.5 MCHC 30.9 L RDW 14.7 Plt Count 150 L MPV 9.4 Immature Gran % (Auto) 0.3 Neut % (Auto) 72.6 Lymph % (Auto) 12.6 L [place] % (Auto) 11.6 H Eos % (Auto) 2.5 Baso % (Auto) 0.4 Lymph # (Auto) 0.9 L [place] # (Auto) 0.8 Eos # (Auto) 0.2 Baso # (Auto) 0.0 Abs Immat Gran (auto) 0.02 Absolute Neuts (auto) 5.0 Absolute Nucleated RBC 0.000 Nucleated RBC % (auto) 0.0 PT INR VBG pH VBG pCO2 VBG pO2 VBG HCO3 VBG O2 Saturation VBG Base Excess Anion Gap 16 Estim Creat Clear Calc 43.2 Estimated GFR 46 Random Glucose 78 Lactic Acid Calcium 8.7 Total Bilirubin 2.2 H AST 43 H ALT 22 Alkaline Phosphatase 103 Troponin I High Sens 23.2 B-Natriuretic Peptide 1788 H Total Protein 7.2 Albumin 3.6 Urine Color Urine Appearance Urine pH Ur Specific [place] Urine Protein Urine Glucose (UA) Urine Ketones Urine Blood Urine Nitrite Ur Leukocyte Esterase COVID-19 (KYLE) [facility] 05/20/21 05/20/21 05/20/21 06:25 06:25 06:28 MCV MCH MCHC RDW Plt Count MPV Immature Gran % (Auto) Neut % (Auto) Lymph % (Auto) [place] % (Auto) Eos % (Auto) Baso % (Auto) Lymph # (Auto) [place] # (Auto) Eos # (Auto) Baso # (Auto) Abs Immat Gran (auto) Absolute Neuts (auto) Absolute Nucleated RBC Nucleated RBC % (auto) PT INR VBG pH 7.51 H VBG pCO2 26 VBG pO2 62 VBG HCO3 21 L VBG O2 Saturation 85.0 VBG Base Excess 0.4 Anion Gap Estim Creat Clear Calc Estimated GFR Random Glucose Lactic Acid 1.4 Calcium Total Bilirubin AST ALT Alkaline Phosphatase Troponin I High Sens B-Natriuretic Peptide Total Protein Albumin Urine Color Urine Appearance Urine pH Ur Specific [place] Urine Protein Urine Glucose (UA) Urine Ketones Urine Blood Urine Nitrite Ur Leukocyte Esterase COVID-19 (KYLE) Negative [facility] [facility] [employer] See Note 05/20/21 05/20/21 06:37 08:42 MCV MCH MCHC RDW Plt Count MPV Immature Gran % (Auto) Neut % (Auto) Lymph % (Auto) [place] % (Auto) Eos % (Auto) Baso % (Auto) Lymph # (Auto) [place] # (Auto) Eos # (Auto) Baso # (Auto) Abs Immat Gran (auto) Absolute Neuts (auto) Absolute Nucleated RBC Nucleated RBC % (auto) PT 14.5 H INR 1.3 H VBG pH VBG pCO2 VBG pO2 VBG HCO3 VBG O2 Saturation VBG Base Excess Anion Gap Estim Creat Clear Calc Estimated GFR Random Glucose Lactic Acid Calcium Total Bilirubin AST ALT Alkaline Phosphatase Troponin I High Sens B-Natriuretic Peptide Total Protein Albumin Urine Color YELLOW Urine Appearance CLEAR Urine pH 5.5 Ur Specific [place] 1.025 Urine Protein NEG Urine Glucose (UA) NEG Urine Ketones 5 Urine Blood NEG Urine Nitrite NEG Ur Leukocyte Esterase NEG COVID-19 (KYLE) COVID-19 Clin Com Imaging Radiologist's Impressions: Impressions Chest X-Ray 05/20/21 06:55 IMPRESSION: Small right pleural effusion. Patchy bilateral opacities could be infectious or inflammatory. Edema is also a possibility. Assessment and Plan (1) Congestive heart failure: Qualifiers: Heart failure type: unspecified Status: Acute This is an 80 yo M with multiple medical problems including vascular dementia, HFrEF (10% last year by daughters' report), A. Fib (previously on OAC), CAD s/p IA, Chronic constipation, Sick Sinus syndrome -- s/p PPM, HTN, HLD who presents from long term facility after he was found to have hypoxia. His work-up is worrisome for acute exacerbation of HFrEF. 1. Acute Respiratory failure with hypoxia Saturations in the 80s at [facility], improved to 90s on 3-4L continue the same likely due to acute CHF exacerbation Patient recently treated for pneumonia at [facility] -- CXR does show any significant infiltrate, his WBC is in the normal range and he has no fever -- low suspicion 2. Acute on Chronic HFrEF Last EF 10% per daughters reports Lasix 40mg BID I/O consider cardiology consult + echo if not improved in 24-48 hours 3. Acute Encephalopathy -- likely metabolic check VBG check CT head 4. PAF currently in A. Fib on monitor not on OAC (? due to fall risks -- per discussion with daughters) continue baseline meds once med rec completed Med rec pending at the time of this note -- continue baseline meds as appropriate. DNR/DNI DVT pptx, Lovenox (once CT head done) Daughters Rosy and Fouzia are HCPs Quality Stroke Does the patient have a stroke diagnosis?: No VTE Prior VTE?: No VTE Risk Level:: Medical - moderate - high VTE Device Contraindication: Treatment Not Indicated VTE Drug Contraindication: N/A - Med Ordered
[2021-05-20 09:23] LABS: Venous Blood Gas Refer to POC result
[2021-05-20 09:24] LABS: VBG Base Excess 1.2 mmol/L; VBG HCO3 26 mmol/L (22-26); VBG pCO2 43 mmHg; VBG pH 7.39 (7.32-7.43); VBG pO2 35 mmHg
[2021-05-20] MEDS: Furosemide 40 MG/4 ML VIAL IVPUSH ×2 (09:41→18:33)
[2021-05-20] MEDS: 0.9 % Sodium Chloride Flush 3 ML SYRINGE IVFLUSH (09:43)
--- NOTE | 2021-05-20 10:29 | PHA.MEDREC ---
Pharmacy Consult ? Medication Reconciliation Pharmacy has completed the medication reconciliation Thanks Yanelis Coelho.
--- NOTE | 2021-05-20 10:48 | PC.NURSE ---
sleeping, afib on monitor, voided 500ml
--- NOTE | 2021-05-20 15:29 | PC.NURSE ---
Pt sleeping at this time, spoke to daughter, she would like to come by this evening to visit. Updated with POC. Will continue to monitor.
--- NOTE | 2021-05-20 17:43 | PC.NURSE ---
Pt resting at this time, no signs of distress noted, awaiting bed assignment. Urinated into urinal. Alert to person and place.
[2021-05-20] MEDS: carvediloL 6.25 MG TABLET PO (21:15)
[2021-05-21] VITALS (8 sets, daily range): BP systolic 150–178; BP diastolic 76–92; PULSE 60–69; RESP 15–32; TEMP 37.3; O2SAT 95–98
[2021-05-21] MEDS: Omeprazole 20 MG CAPSULE.DR PO (05:46)
[2021-05-21 07:06] LABS: Hemoglobin 13.5 g/dl (14.0-18.0); PLT CLUMP 1; Red Cell Distribution Width 14.5 % (11.0-16.0)
[2021-05-21 07:07] LABS: Hematocrit 43.1 % (42.0-52.0); Mean Corpuscular HGB Conc 31.3 g/dl (31.0-36.0); Mean Corpuscular Hemoglobin 30.8 pg (27.0-33.0); Mean Corpuscular Volume 98.2 fL (80.0-98.0); Mean Platelet Volume 9.1 fL (9.4-12.4); Red Blood Count 4.39 X10*6/uL (4.60-5.80)
[2021-05-21 07:19] LABS: Platelet Count 152 X10*3/uL (160-400); White Blood Count 6.7 X10*3/uL (4.8-10.8)
[2021-05-21 07:25] LABS: Blood Urea Nitrogen 24 mg/dL (9-16); Creatinine Clr Calc Pharmacy 54.3; Estimated Glomerular Filt Rate 60; Glucose Random 76 mg/dL (60-115)
[2021-05-21 07:38] LABS: Anion Gap 15 (12-20); Calcium 8.2 mg/dL (8.4-10.2); Carbon Dioxide 25 mmol/L (22-29); Chloride 109 mmol/L (96-108); Potassium 3.5 mmol/L (3.3-5.1); Sodium 145 mmol/L (135-145)
[2021-05-21] MEDS: Aspirin Enteric Coated 81 MG TABLET.DR PO (08:18)
[2021-05-21] MEDS: carvediloL 6.25 MG TABLET PO ×2 (08:18→22:33)
[2021-05-21] MEDS: Folic Acid 1 MG TABLET PO (08:19)
[2021-05-21] MEDS: Amiodarone HCL 200 MG TABLET PO (08:19)
[2021-05-21] MEDS: Atorvastatin Calcium 40 MG TABLET PO (08:19)
[2021-05-21 08:55] LABS: Alanine Aminotransferase 18 U/L (0-40); Albumin Level 3.4 g/dL (3.5-5.0); Alkaline Phosphatase 99 U/L (39-117); Aspartate Amino Transferase 27 U/L (5-37); Bilirubin Direct 1.5 mg/dL (0.0-0.5); Bilirubin Total 2.8 mg/dL (0.0-1.0); Total Protein 6.2 g/dL (6.5-8.0)
[2021-05-21] MEDS: Furosemide 40 MG/4 ML VIAL IVPUSH ×2 (09:00→17:53)
--- NOTE | 2021-05-21 09:56 | P.PNIM_ITS ---
Subjective Subjective Date of Service: 05/21/21 Interval History: seen and examined this AM denied any shortness of breath or chest pain denied any complaints to me later told RN he was having dysuria Review of Systems negative except interval history Physical Exam Vital Signs: Vital Signs: Last Vital Signs Temp 98.1 F 05/20/21 18:25 Pulse 65 05/21/21 08:19 Resp 15 05/21/21 08:12 BP 167/88 H 05/21/21 08:19 Pulse Ox 98 05/21/21 08:12 Oxygen Flow Rate 4 05/20/21 06:20 BMI result Body Mass Index 25.8 Const: Other: General - no acute distress, appears comfortable Cardiovascular - IRR, minimal pedal edema Lungs - diminihsed sounds Abdomen - soft, nontender, no rebound or guarding Extremities - no edema bilaterally Neuro - disoriented to place and time, moving all 4 limbs, CN 2-12 in tact bilaterally Objective Data Active Medications Acetaminophen (Acetaminophen 325 Mg Tablet) 650 mg PO Q6H PRN PRN Reason: Pain, Mild (Pain Scale 1-3) Amiodarone HCl (Amiodarone Hcl 200 Mg Tablet) 200 mg PO DAILY FOR[facility]LY [facility], [facility] Last Admin: 05/21/21 08:19 Dose: 200 mg Documented by: KAREN Aspirin (Aspirin Enteric Coated 81 Mg Tablet.) 81 mg PO DAILY [facility]LY [facility], [facility] Last Admin: 05/21/21 08:18 Dose: 81 mg Documented by: KAREN Atorvastatin Calcium (Atorvastatin Calcium 40 Mg Tablet) 40 mg PO DAILY [facility], [facility] Last Admin: 05/21/21 08:19 Dose: 40 mg Documented by: KAREN Carvedilol (Carvedilol 6.25 Mg Tablet) 6.25 mg PO BID [facility], [facility]; Protocol Last Admin: 05/21/21 08:18 Dose: 6.25 mg Documented by: KAREN Folic Acid (Folic Acid 1 Mg Tablet) 1 mg PO DAILY [facility], [facility] Last Admin: 05/21/21 08:19 Dose: 1 mg Documented by: KAREN Furosemide (Furosemide 40 Mg/4 Ml Vial) 40 mg IVPUSH BID@0900,1800 [facility], [facility]; Protocol Last Admin: 05/21/21 09:00 Dose: 40 mg Documented by: KAREN Lactulose (Lactulose 20 Gm/30 Ml Solution) 13.4 gm PO DAILY PRN PRN Reason: Constipation Omeprazole (Omeprazole 20 Mg Capsule.) 20 mg PO DAILY@0630 [facility] Last Admin: 05/21/21 05:46 Dose: 20 mg Documented by: KEDAR Pharmacy Consult (Consult Rx Perform Med Rec) 1 each MISCELLANE ONCE PRN PRN Reason: Consult order Sodium Chloride (0.9 % Sodium Chloride Flush 3 Ml Syringe) 3 ml IVFLUSH QSHIFT [facility] Last Admin: 05/21/21 08:57 Dose: Not Given Documented by: KAREN Non-Admin Reason: Med Not Available Labs CBC & Chem 7: 05/21/21 06:48 05/21/21 06:48 Labs: Laboratory Results - last 24 hr 05/21/21 05/21/21 06:48 06:48 MCV 98.2 H MCH 30.8 MCHC 31.3 RDW 14.5 Plt Count 152 L MPV 9.1 L Absolute Nucleated RBC 0.000 Nucleated RBC % (auto) 0.0 Anion Gap 15 Estim Creat Clear Calc 54.3 Estimated GFR 60 Random Glucose 76 Calcium 8.2 L Total Bilirubin 2.8 H Direct Bilirubin 1.5 H AST 27 ALT 18 Alkaline Phosphatase 99 Total Protein 6.2 L Albumin 3.4 L Microbiology Microbiology Results: Microbiology 05/20/21 06:25 Blood Culture - Preliminary Blood - Venous No growth after 24 hours. 05/20/21 06:37 Blood Culture - Preliminary Blood - Venous No growth after 24 hours. Assessment and Plan (1) Acute respiratory failure with hypoxia: Status: Acute (2) Acute on chronic heart failure with preserved ejection fraction (HFpEF): Status: Acute Assessment and Plan: This is an 80 yo M with multiple medical problems including vascular dementia, HFrEF (10% last year by daughters' report), A. Fib (previously on OAC), CAD s/p NV, Chronic constipation, Sick Sinus syndrome -- s/p PPM, HTN, HLD who presents from senior living facility after he was found to have hypoxia. His work-up is worrisome for acute exacerbation of HFrEF. 1. Acute Respiratory failure with hypoxia clinically improving, respiratory rate improved continue to wean o2 as tolerate with goal of 90 likely due to acute CHF exacerbation Patient recently treated for pneumonia at [facility] -- CXR does show any significant infiltrate, his WBC is in the normal range and he has no fever? -- low suspicion 2. Acute on Chronic HFrEF Last EF 10% per daughters reports diuresed about 500 cc neg balance thus far continue IV lasix 40mg BID I/O 3. CARLA, present on admission likely cardiorenal SCr baseline around 0.9 -- 1.47 on admission now improved with diuresis 4. Acute Encephalopathy, likely metabolic resolving 5. PAF currently in A. Fib on monitor not on OAC (? due to fall risks -- per discussion with daughters) continue coreg / amio 6. Dysuria UA negative for infection yesterday but repeat given symptoms are new start antibiotics if positive DNR/DNI DVT pptx, Lovenox Daughters Rosy and Fouzia are HCPs Quality Stroke Does the patient have a stroke diagnosis?: No VTE Prior VTE?: No VTE Risk Level:: Medical - moderate - high VTE Device Contraindication: Treatment Not Indicated VTE Drug Contraindication: N/A - Med Ordered
--- NOTE | 2021-05-21 09:59 | PC.NURSE ---
MD Dandre Colby made aware of pt c/o burning upon urination and pain with urine appearing concentrated and malodorous. New orders received for prn pain and UA sample. Verified and carried out.
[2021-05-21] MEDS: Acetaminophen 325 MG TABLET 650 MG PO (10:03)
[2021-05-21 10:28] LABS: Appearance Urine CLOUDY; Color Urine YELLOW; Glucose Urine UA NEG (NEG); Leukocyte Esterase Urine 3+ (NEG); Nitrite Urine POS (NEG); Specific Gravity - Urine <= 1.005 (1.005-1.025); UACC Culture Trigger YES; Urine Blood NEG (NEG); Urine Ketones 5 MG/DL (NEG); Urine Protein 1+ MG/DL (NEG-TRACE)
[2021-05-21 10:45] LABS: Amorphous Sediment Urine 3+ /LPF
[2021-05-21 10:46] LABS: Bacteria Urine 1+ /LPF; RBC Urine 0 /HPF (0); Squamous Epithelial Cell Urine TRACE /LPF
--- NOTE | 2021-05-21 11:07 | PC.NURSE ---
Pt received this morning from filing machine operator: Pt A and orientedx2- pt is unsure about location and situation. Pt borderline NSR and sinus ayaka on the monitor. Lungs dimished with N/C in tact at 2L. Pt abd round and none tender. Pt c/o earlier of urinary burning and pain. MD Colby made aware and new orders received and verified.
[2021-05-21] MEDS: cefTRIAXone sodium 1 GM in 0.9 % Sodium Chloride 50 ML IV (13:44)
--- NOTE | 2021-05-21 17:59 | PC.NURSE ---
Pt's daughter Fouzia at bedside and pt update explained at that time. No further questions asked upon exit from unit. Fouzia: [phone]
--- NOTE | 2021-05-21 19:30 | PC.NURSE ---
Assumed care of pt from MAHAMED Watkins Pt resting on stretcher
--- NOTE | 2021-05-21 22:15 | PC.NURSE ---
Pt resting on stretcher, removing gown and monitors Pt re-oriented Will continue to monitor
[2021-05-22 00:28] VITALS: BP 153/81; PULSE 78; RESP 24; O2SAT 97
[2021-05-22 05:09] VITALS: BP 148/87; PULSE 67; RESP 29; O2SAT 94
[2021-05-22] MEDS: Omeprazole 20 MG CAPSULE.DR PO (06:33)
[2021-05-22 07:29] LABS: Anion Gap 13 (12-20); Blood Urea Nitrogen 25 mg/dL (9-16); Carbon Dioxide 27 mmol/L (22-29); Chloride 106 mmol/L (96-108); Creatinine Clr Calc Pharmacy 51.2; Estimated Glomerular Filt Rate 57; Glucose Random 83 mg/dL (60-115); Potassium 3.4 mmol/L (3.3-5.1); Sodium 143 mmol/L (135-145)
[2021-05-22 07:32] LABS: Alanine Aminotransferase 17 U/L (0-40); Albumin Level 3.4 g/dL (3.5-5.0); Alkaline Phosphatase 101 U/L (39-117); Aspartate Amino Transferase 23 U/L (5-37); Bilirubin Direct 1.4 mg/dL (0.0-0.5); Bilirubin Total 2.5 mg/dL (0.0-1.0); Total Protein 6.3 g/dL (6.5-8.0)
[2021-05-22 09:34] VITALS: BP 144/79; PULSE 70; RESP 25; TEMP 37.1; O2SAT 96
[2021-05-22] MEDS: Folic Acid 1 MG TABLET PO (09:35)
[2021-05-22] MEDS: Amiodarone HCL 200 MG TABLET PO (09:35)
[2021-05-22] MEDS: carvediloL 6.25 MG TABLET PO (09:35)
[2021-05-22] MEDS: Enoxaparin Sodium 40 MG/0.4 ML SYRINGE SUBCUT (09:35)
[2021-05-22] MEDS: Aspirin Enteric Coated 81 MG TABLET.DR PO (09:35)
[2021-05-22] MEDS: Furosemide 40 MG/4 ML VIAL IVPUSH (09:35)
[2021-05-22] MEDS: Atorvastatin Calcium 40 MG TABLET PO (09:35)
--- NOTE | 2021-05-22 10:07 | PC.NURSE ---
Dr Dandre Colby at bedside for rounds. Pt removed from N/C as pre doctor orders. RN will continue to monitor any change of oxygen saturation status.
[2021-05-22 10:09] VITALS: BP 133/71; PULSE 63; RESP 31; TEMP 36.8; O2SAT 95
--- NOTE | 2021-05-22 11:28 | P.DS_ITS ---
DS: Providers Provider Date of Service: 05/22/21 <MELBA Adams - Last Filed: 05/22/21 11:41> Date of admission: 05/20/21 09:00 <MELBA Adams - Last Filed: 05/22/21 11:41> Date of discharge: 05/22/21 <MELBA Adams - Last Filed: 05/22/21 11:41> Primary care physician: Unknown Physician <MELBA Adams - Last Filed: 05/22/21 11:41> Attending physician on discharge: Carmelo Colby <MELBA Adams - Last Filed: 05/22/21 11:41> Discharging clinician: Sangita Laurent <MELBA Adams - Last Filed: 05/22/21 11:41> DS: Diagnosis Discharge Diagnosis (1) Acute respiratory failure with hypoxia: Status: Acute <MELBA Adams - Last Filed: 05/22/21 11:41> (2) Acute on chronic heart failure with preserved ejection fraction (HFpEF): Status: Acute <MELBA Adams - Last Filed: 05/22/21 11:41> (3) UTI (urinary tract infection): Status: Acute <MELBA Adams - Last Filed: 05/22/21 11:41> DS: Summary Hospital Course Hospital Course: From H&P on day of discharge This is an 80 yo M with a PMH as outlined below who is a resident at a local [facility] facility. He is brought in by ambulace due to hypoxia at the SNF. History is obtained from the ED provider's notes and phone conversation with the patients daughters notes as the patient is currently unable to give any meaningful history. Reportely, at the SNF -- the patient was noted to have some hypoxia in the 80s (on RA) while sleeping. This did not improve and so paramedics were called. He was placed on 4L oxygen by MA with improvement of his oxygen saturation into the 90s. Upon arrival to the ED -- the patient had stable oxygenation on 3-4L. His other vital signs were also acceptable. His work up in the ED showed an elevated BNP and a chest XR suggestive of CHF. He was given a dose of IV lasix 40 and admission was requested. Per the discussion with the patients daughters (both of whom are health care proxys) -- their father was treated for a pneumonia over the last 1-2 weeks. His daughter Fouzia, who lives locally, has noticed that since , he has become less active and at times visibly short of breath. He was also more confused than his baseline. When I saw the patient in the ED, he was asleep. He did move to painful stimuli, but was not speaking. Hospital course by problem: Acute Respiratory failure with hypoxia. related to acute on chronic heart failure. Started on IV lasix with good urine ouput. Was able to be weaned off oxygen. He was recently treated for pneumonia at [facility] - CXR does not show any significant infiltrate, his WBC is in the normal range and he has no fever at this time. His dose Lasix will be increased to 40 mg b.i.d. on discharge. He should follow up with Cardiology as outpatient. Patient does not have tachypnea despite vitals documented in chart. He is breathing comfortably at this time. CARLA. SCr 1.47 on admission, trending down. Recommend to repeat labs early next week. PAF. not on OAC ? due to fall risks - per discussion with daughters. will start Eliquis, discussed with daughter and son in detail. Should follow-up with Cardiology as outpatient. Dysuria. Repeat UA was positive. Initially started on IV ceftriaxone. This will be converted to p.o. Ceftin on discharge. <MELBA Adams - Last Filed: 05/22/21 11:41> Time Spent with Patient Time attestation: Total time spent providing and/or coordinating discharge services: <MELBA Adams - Last Filed: 05/22/21 11:41> Discharge coordination time: Greater than 30 minutes <MELBA Adams - Last Filed: 05/22/21 11:41> Quality: Stroke Does the patient have a stroke diagnosis?: No <MELBA Adams - Last Filed: 05/22/21 11:41> Physical Exam Vital Signs: Vital Signs: Last Vital Signs Temp 98.2 F 05/22/21 10:09 Pulse 63 05/22/21 10:09 Resp 31 H 05/22/21 10:09 BP 133/71 05/22/21 10:09 Pulse Ox 95 05/22/21 10:09 Oxygen Flow Rate 4 05/20/21 06:20 BMI result Body Mass Index 25.8 <MELBA Adams - Last Filed: 05/22/21 11:41> Const: General: cooperative, comfortable, no acute distress, alert and awake <MELBA Adams - Last Filed: 05/22/21 11:41> Nutritional Appearance: well nourished <MELBA Adams - Last Filed: 05/22/21 11:41> HENMT: Head: Yes normocephalic and Yes atraumatic <MELBA Adams - Last Filed: 05/22/21 11:41> Eyes: Sclerae: sclerae normal <MELBA Adams - Last Filed: 05/22/21 11:41> Resp: Effort & Inspection: normal respiratory effort and no respiratory distress <MELBA Adams - Last Filed: 05/22/21 11:41> Cardio: Rate: regular rate <MELBA Adams - Last Filed: 05/22/21 11:41> Rhythm: regular rhythm <MELBA Adams - Last Filed: 05/22/21 11:41> GI: Palpation (GI): Soft to palpation and nontender <MELBA Adams - Last Filed: 05/22/21 11:41> Neuro: Cranial nerves: Yes CN's II-XII intact bilaterally and Yes Bilaterally intact EOM present <MELBA Adams - Last Filed: 05/22/21 11:41> DS: Data Data Completed and Pending Labs on day of discharge: Laboratory Results - last 24 hr 05/22/21 05/22/21 06:16 06:16 Sodium 143 Potassium 3.4 Chloride 106 Carbon Dioxide 27 Anion Gap 13 BUN 25 H Creatinine 1.22 Estim Creat Clear Calc 51.2 Estimated GFR 57 Random Glucose 83 Calcium 8.0 L Total Bilirubin 2.5 H Direct Bilirubin 1.4 H AST 23 ALT 17 Alkaline Phosphatase 101 Total Protein 6.3 L Albumin 3.4 L Preliminary micro results at discharge 05/20/21 06:37 Blood Culture - Preliminary Blood - Venous No growth after 48 hours. 05/20/21 06:25 Blood Culture - Preliminary Blood - Venous No growth after 48 hours. <MELBA Adams - Last Filed: 05/22/21 11:41> Discharge Plan Discharge Patient Disposition: er [facility] <MELBA Adams - Last Filed: 05/22/21 11:41> Discharge Diagnosis: acute on chronic HFrEF UTI <MELBA Adams - Last Filed: 05/22/21 11:41> acute on chronic HFrEF UTI <Carmelo Colby MD - Last Filed: 05/22/21 13:05> Referrals: [facility] [Outside] - 1 Week Physician,Unknown J [Primary Care Provider] - 1 Week <MELBA Adams - Last Filed: 05/22/21 11:41> Discharge Medications: New Eliquis 5 mg tablet 5 mg PO BID 30 Days Qty: 60 RF: 0 furosemide [Lasix] 40 mg tablet 40 mg PO BID 30 Days Qty: 60 RF: 0 cefuroxime axetil 250 mg tablet 250 mg PO BID 4 Days Qty: 8 RF: 0 Continued quetiapine 25 mg Tablet 25 mg PO BEDTIME RF: 0 calcium carbonate-vitamin D3 [Calcium 600 + D(3)] 600 mg-5 mcg (200 unit) Tablet 1 tab PO BID RF: 0 aspirin 81 mg Tablet,Delayed Release (Dr/Ec) 81 mg PO DAILY RF: 0 melatonin 5 mg Tablet 5 mg PO BEDTIME PRN (Reason: Insomnia) RF: 0 sennosides [Natural Senna Laxative] 8.6 mg tablet 17.2 mg PO BEDTIME RF: 0 atorvastatin 40 mg tablet 1 tab PO DAILY RF: 0 carvedilol 6.25 mg tablet 1 tab PO BID RF: 0 amiodarone 200 mg tablet 1 tab PO DAILY RF: 0 alendronate 70 mg tablet 1 tab PO MO RF: 0 fluvoxamine 100 mg tablet 1 tab PO BEDTIME RF: 0 folic acid 1 mg tablet 1 tab PO DAILY RF: 0 lactulose 10 gram/15 mL solution 20 ml PO DAILY PRN (Reason: Constipation) RF: 0 quetiapine 25 mg Tablet 12.5 mg PO DAILY RF: 0 omeprazole 20 mg capsule,delayed release(DR/EC) 1 cap PO DAILY RF: 0 trazodone 50 mg tablet 1 tab PO BEDTIME RF: 0 potassium chloride 20 mEq tablet,ER particles/crystals 1 tab PO DAILY RF: 0 Linzess 290 mcg capsule 290 mcg PO QAM Qty: 30 RF: 4 Discontinued acetaminophen 500 mg Tablet 1,000 mg PO TID RF: 0 furosemide 40 mg tablet 1 tab PO DAILY RF: 0 <MELBA Adams - Last Filed: 05/22/21 11:41> Discharge Orders: Discharge Order (Routine); Ordered 05/22/21 Ordered By: Sangita Laurent <MELBA Adams - Last Filed: 05/22/21 11:41> Activity on Discharge: As tolerated <MELBA Adams - Last Filed: 05/22/21 11:41> As tolerated <Carmelo Colby MD - Last Filed: 05/22/21 13:05> Stand Alone Forms: Patient Portal Discharge page <MELBA Adams - Last Filed: 05/22/21 11:41> Care Plan Goals: see below <MELBA Adams - Last Filed: 05/22/21 11:41> Health Concerns: CHF - dose of Lasix has been increased from 40mg once daily to 40mg twice daily. afib - you have been started on the blood thinner Eliquis, please take as prescribed. Call to schedule follow up appointment with the carbon brushes assembler. christian meehan for signs of bleeding. UTI - complete entire course of antibiotics <MELBA Adams - Last Filed: 05/22/21 11:41> Plan of Treatment: see above <MELBA Adams - Last Filed: 05/22/21 11:41> Assessment: see discharge summary Attending Attestation: I have personally seen and examined the patient independently (on the date of service as documented by NPP), reviewed the NPP history, exam and?MDM and agree with the assessment and plan as?written D/w the son and daughter on the phone regarding anticoagulation. He was previously taken off because of multiple falls at SNF. He has since (about 1 year) been at a different SNF where he has not fallen. Risks v Benefits (Bleeding vs decreasing stroke risk) discussed at length. Agreeable on starting Eliquis. <MELBA Adams - Last Filed: 05/22/21 11:41>
--- NOTE | 2021-05-22 12:07 | MHC.CM.PN ---
pt is from [facility] where he is a resident. dc plan is for him to return there today. a call was made to patients daughter, message left, informing her that patient would be returning today. ref. has been made to [facility] and transportation will be via [facility]. dc plan is to return to [facility]. cm to cont. to follow.
[2021-05-22 12:17] LABS: COVID-19 Test Negative (Negative)
[2021-05-22] MEDS: cefTRIAXone sodium 1 GM in 0.9 % Sodium Chloride 50 ML IV (12:52)
--- NOTE | 2021-05-22 16:32 | PC.NURSE ---
[facility] called ([phone]) for approx ETA for pt D/C. Was told EMS should be within unit shortly . RN will continue to monitor.
--- NOTE | 2021-05-22 16:38 | PC.NURSE ---
EMS at bedside for transport back to the facility. PT offers no complaints prior to.
[2021-05-26 12:00] LABS: Glucose, Whole Blood 78 mg/dL (60-115)
== END 2021-05-22 17:20 | disposition skilled nursing facility (03) | DRG 291 ==
LOC: HO.ED 08:11 → HO.EDOVER 09:23
PROVIDERS: Student in an Organized Health Care Education/Training Program; Admitting Provider Family Medicine; Emergency Provider Emergency Medicine; Visit Provider Physician Assistant Medical
DX: I11.0 Hypertensive heart disease with heart failure (principal); J96.01 Acute respiratory failure with hypoxia; I50.23 Acute on chronic systolic (congestive) heart failure; G93.41 Metabolic encephalopathy; N17.9 Acute kidney failure, unspecified; N39.0 Urinary tract infection, site not specified; I48.0 Paroxysmal atrial fibrillation; Z95.0 Presence of cardiac pacemaker; I25.10 Atherosclerotic heart disease of native coronary artery without angina pectoris; I49.5 Sick sinus syndrome; I25.2 Old myocardial infarction; Z20.822 Contact with and (suspected) exposure to COVID-19; K59.09 Other constipation; F01.50 Vascular dementia, unspecified severity, without behavioral disturbance, psychotic disturbance, mood disturbance, and anxiety; Z87.891 Personal history of nicotine dependence; Z88.2 Allergy status to sulfonamides; Z79.01 Long term (current) use of anticoagulants; Z79.899 Other long term (current) drug therapy; Z66 Do not resuscitate
CPT/HCPCS: 36415; 36573; 70450; 71045; 71250; 76937; 80048; 80053; 80076; 81001; 81003; 82550; 82803; 82947; 83605; 83690; 83735; 83880; 84484; 85025; 85027; 85610; 87040; 87086; 87088; 87635; 93005; 96360; 96374; 99285; C1751; J0696; J1335; J1650; J1940; J2185

== ENCOUNTER 2021-05-23 12:10 | Inpatient (IN) | payer MEDICARE, OTHER, SELFPAY ==
[2021-05-23] VITALS (10 sets, daily range): BP systolic 101–139; BP diastolic 63–76; PULSE 58–66; RESP 12–22; TEMP 36.4–37.9; O2SAT 95–100; BMI 24.0
--- NOTE | ~2021-05-23 | XR_ITS ---
EXAMINATION: XR CHEST CLINICAL INFORMATION: Fever COMPARISON: Previous chest x-ray most recent 05/20/2021 TECHNIQUE: Frontal view of the chest was obtained. FINDINGS: The cardiac silhouette is enlarged but stable. There is a left subclavian AICD device. This is not completely visualized. There is increasing density in the right upper lung. It is uncertain whether this represents an infiltrate or loculated fluid in the major fissure. There is loss of the left hemidiaphragm questionable for left lower lobe pneumonia. There is blunting at the bilateral costophrenic angles questionable for small bilateral pleural effusions. There is no pneumothorax. There are degenerative changes of the spine. XR/XR chest 1V IMPRESSION: New increased density in the right upper lung questionable for loculated fluid in the major fissure versus infiltrate. Loss of the left hemidiaphragm questionable for left lower lobe atelectasis or pneumonia.
--- NOTE | ~2021-05-23 | CT_ITS ---
EXAMINATION: CT HEAD WITHOUT CONTRAST CLINICAL INFORMATION: Mental status change COMPARISON: May 20, 2021 and August 31, 2016 TECHNIQUE: Contiguous axial imaging was performed from the skull base to vertex without intravenous administration of contrast. This CT examination was performed using dose optimization techniques as appropriate, variously including the following: *Automated exposure control *Adjustment of mA and/or kV according to patient size (this includes techniques or standardized protocols for targeted exams where dose is matched to indication/reason for exam; i.e. extremities or head) *Use of iterative reconstruction technique DLP: 648 mGy-cm FINDINGS: There is no evidence of acute intracranial hemorrhage or territorial infarction. No abnormal mass effect or midline shift is seen. Chen to white matter differentiation is well preserved. No extra-axial fluid collections are identified. There is prominence of ventricles, sulci, and cisterns consistent with generalized atrophy. There is a large amount of periventricular white matter low density present consistent with microangiopathy. There are vertebral and carotid artery calcifications present. The mastoid air cells are well aerated. There is mild mucosal thickening seen within the maxillary sinuses bilaterally. No air-fluid levels within paranasal sinuses identified. CT/CT head/brain wo con IMPRESSION: No acute intracranial pathology. There are diffuse periventricular white matter low density consistent with microangiopathy.
--- NOTE | ~2021-05-23 | IR_ITS ---
PROCEDURE: IR INSERTION OF PICC CLINICAL INFORMATION: Unsuccessful midline placement. Needs long-term IV antibiotics for UTI. COMPARISON: None. TECHNIQUE: Following explaining ultrasound and fluoroscopy-guided placement of right PICC line catheter procedure, benefits and risks, a written consent was obtained. Patient was placed supine and preliminary ultrasound imaging was obtained through the right arm. A site was selected and marked on the skin. A tourniquet was applied along the right arm. The marked site was cleaned and draped in the usual sterile manner with 1% lidocaine injected at the puncture site. Under sterile ultrasound guidance, a single wall needle was advanced and right brachial vein was punctured. After obtaining venous return, a thin guidewire was advanced and placed in the SVC and needle withdrawn. The tourniquet was loosened. A 5 Maltese dilator sheath was advanced over the guidewire. A precut single lumen catheter was then advanced over the guidewire and through the peel-away sheath following removal of the dilator. Eventually, the peel-away sheath and the guidewire were removed and a single image obtained over the chest for documentation of the catheter tip. The catheter was flushed with heparinized saline. Sterile dressing was applied at the puncture site. Patient tolerated the procedure extremely well. All elements of maximal sterile barrier technique followed including use of cap, mask, sterile gown, sterile gloves, a sterile full body drape and hand hygiene. Also followed skin preparation with 2% chlorhexidine for cutaneous antisepsis, and sterile ultrasound preparation with sterile gel and probe cover when applicable. FINDINGS: On preliminary ultrasound imaging, there is a widely patent right brachial vein. The cephalic vein and the antecubital veins are not seen. Approximately 37 cm long single lumen right PICC catheter was advanced under ultrasound and fluoroscopy guidance. The catheter is ready for use. IR/IR cvc insert peripheral IMPRESSION: Successful ultrasound and fluoroscopy-guided placement of a 37 cm long single-lumen PICC catheter with its tip in the proximal SVC/brachiocephalic venous junction.
--- NOTE | ~2021-05-23 | CT_ITS ---
EXAMINATION: CT CHEST WITHOUT CONTRAST CLINICAL INFORMATION: Pneumonia COMPARISON: Chest x-ray of same day and studies dating back to November 28, 2010 TECHNIQUE: Multidetector volumetric CT imaging of the chest was done. Axial MIP volume rendering provided. Sagittal and coronal reformatted images were obtained. This CT examination was performed using dose optimization techniques as appropriate, variously including the following: *Automated exposure control *Adjustment of mA and/or kV according to patient size (this includes techniques or standardized protocols for targeted exams where dose is matched to indication/reason for exam; i.e. extremities or head) *Use of iterative reconstruction technique DLP: 459 mGy-cm FINDINGS: LUNGS: Central airways are patent. There are bilateral scattered sub-4 mm densities present. There is a stable region of scarring noted along the right major fissure predominantly overlying the upper lobe which was present on previous CTA of the chest of November 28, 2010. There is also noted to be bilateral pleural-parenchymal scarring which was present previously most prominent within the lower lobes. There is bronchial wall thickening present bilaterally changes of mild cylindrical bronchiectasis present bilaterally. No definite new region of significant airspace disease is identified. There are some scattered areas of groundglass opacity within the right middle lobe. There is loss of left lower lobe volume. Cannot totally exclude region of acute on chronic left lower lobe disease. MEDIASTINUM: The heart is enlarged. Prominent coronary artery calcifications present. Pacemaker in place. Ascending thoracic aorta measures up to 4 cm in diameter. No definite thyroid abnormalities appreciated. There is some chronic pericardial thickening seen left side posteriorly which is difficult to differentiate from chronic pleural disease. No definite mediastinal or hilar lymphadenopathy is appreciated. PLEURA: There is pleural-parenchymal disease present which is chronic most significant within the lower lobes bilaterally. AXILLA: No lymphadenopathy. UPPER ABDOMEN: There are bilateral renal cysts present. OSSEOUS STRUCTURES: No suspicious destructive bony lesions identified. There appears to be augmentation procedure performed on L1. CT/CT chest wo con IMPRESSION: No definite acute pneumonia appreciated. Cannot exclude acute on chronic disease within the left lower lobe. Chronic pleural-parenchymal disease as described with most significant volume loss seen within the left lower lobe. There is diffuse bronchial wall thickening seen bilaterally but again more prominent within the left lower lobe. There are regions of cylindrical bronchiectasis. Cardiomegaly without pulmonary edema. Prominent ascending thoracic aorta at 4 cm in diameter.
--- NOTE | 2021-05-23 12:39 | ED_ITS ---
HPI - Altered Mental Status General Chief Complaint: Altered Mental Status Stated Complaint: ams Time Seen by Provider: 05/23/21 12:36 Source: patient, EMS and old records reviewed Mode of arrival: EMS Limitations: altered mental status History of Present Illness HPI narrative: admitted here 05/20 to 05/22 - CHF given IV lasix, started eliquis for afib, UTI - proteus started on ceftin but no sensititivities yet - sent here for 12 hours of lethargy and worsening confusion rectal temp 100.3 notes show poor historian and bouts of confusion while here. MD complaint: decreased responsiveness Onset (ago): hour(s) (12) Timing confirmed by: caregiver Severity: moderate Consistency of symptoms: constant Context: other (admitted here with UTI 05/20 to 05/22 ) Associated symptoms: loss of appetite and malaise Treatments prior to arrival: other (was on ceftin) Related Data Home Medications Medication Instructions Recorded Confirmed alendronate 70 mg tablet 1 tab PO MO 05/20/21 05/20/21 amiodarone 200 mg tablet 1 tab PO DAILY 05/20/21 05/20/21 aspirin 81 mg tablet,delayed 81 mg PO DAILY 05/20/21 05/20/21 release atorvastatin 40 mg tablet 1 tab PO DAILY 05/20/21 05/20/21 calcium carbonate 600 mg-vitamin 1 tab PO BID 05/20/21 05/20/21 D3 5 mcg (200 unit) tablet (Calcium 600 + D(3)) carvedilol 6.25 mg tablet 1 tab PO BID 05/20/21 05/20/21 fluvoxamine 100 mg tablet 1 tab PO BEDTIME 05/20/21 05/20/21 folic acid 1 mg tablet 1 tab PO DAILY 05/20/21 05/20/21 lactulose 10 gram/15 mL oral 20 ml PO DAILY PRN 05/20/21 05/20/21 solution melatonin 5 mg tablet 5 mg PO BEDTIME PRN 05/20/21 05/20/21 omeprazole 20 mg capsule,delayed 1 cap PO DAILY 05/20/21 05/20/21 release potassium chloride 20 mEq 1 tab PO DAILY 05/20/21 05/20/21 tablet,extended release(part/cryst) quetiapine 25 mg tablet 12.5 mg PO DAILY 05/20/21 05/20/21 quetiapine 25 mg tablet 25 mg PO BEDTIME 05/20/21 05/20/21 sennosides 8.6 mg tablet (Natural 17.2 mg PO BEDTIME 05/20/21 05/20/21 Senna Laxative) trazodone 50 mg tablet 1 tab PO BEDTIME 05/20/21 05/20/21 Previous Rx's Medication Instructions Recorded linaclotide 290 mcg capsule 290 mcg PO QAM #30 cap 03/04/21 (Linzess) apixaban 5 mg tablet (Eliquis) 5 mg PO BID 30 Days #60 tab 05/22/21 cefuroxime axetil 250 mg tablet 250 mg PO BID 4 Days #8 tab 05/22/21 furosemide 40 mg tablet (Lasix) 40 mg PO BID 30 Days #60 tab 05/22/21 Allergies Allergy/AdvReac Type Severity Reaction Status Date / Time simvastatin [Zocor] Allergy Unknown Unknown Verified 05/23/21 12:53 Sulfa (Sulfonamide Allergy Unknown Unknown Verified 03/04/21 15:12 Antibiotics) DETERGENT Allergy Mild ITCHING Uncoded 02/22/20 16:32 SEASONAL ALLERGIES Allergy Mild RUNNY NOSE Uncoded 02/22/20 16:32 SNEEZING Review of Systems Review of Systems: ROS unable to be obtained due to altered mental status [facility] Past Medical History Source: old records reviewed Medical History Afib Cardiac defibrillator in place CHF (congestive heart failure) Constipation Coronary artery disease HLD (hyperlipidemia) HTN (hypertension) Low back pain Myocardial infarct Osteoporosis Sick sinus syndrome Vascular dementia Vitamin D deficiency Surgical History History of permanent cardiac pacemaker placement Family History Family History (Updated 05/20/21 @ 09:11 by Carmelo Colby MD) Other CAD (coronary artery disease) Social History Social History Household Members: None Housing: Assisted Do you presently have visiting nurse or other home services: No Unable to assess alcohol history related to: Unknown Alcohol intake: unknown Patient Tobacco Use Status: Tobacco use Unknown Use of substances other than those prescribed or required for medical reasons: Unable to respond Advance Directives: No Advance Directives Information Provided: Yes service: No Current occupational status: retired Physical Exam Vital Signs: Vital Signs: Last Vital Signs Temp 98.6 F 05/23/21 14:39 Pulse 66 05/23/21 14:39 Resp 16 05/23/21 14:39 BP 139/71 05/23/21 14:39 Pulse Ox 98 05/23/21 14:39 BMI result Body Mass Index 24.0 Appearance: Somnolent Oriented X1. No acute distress. Eyes: Pupils equal, round and reactive to light. ENT: Pharynx normal. Neck: Normal inspection. Neck supple. CVS: Normal heart rate and rhythm. Pulses normal. Respiratory: No respiratory distress. Breath sounds normal. Abdomen: Soft and non-tender. Skin: Skin warm and dry. Normal skin color. Normal skin turgor. Extremities: No lower extremity edema. No calf ttp Neuro: Oriented X 1. No motor deficit. No sensory deficit. diffusely weak Course Course Course Narrative: daughter Fouzia aware of plan and results including presumed UTI with need for IV antibiotics MDM - Altered Mental Status MDM Narrative Medical decision making narrative: 81 yo male with hx of CHF. PAF on eliquis, HLD, GERD, here from SNF with reported worsening AMS - rectal temp 100.3, malaise not eating - he was treated for UTI with ceftin I spoke to the lab they are pending S because they think he might be ESBL+ he is R to everything so far except Ertapenem but they are re-running it to see if he is S to cephalosporins, results will not be back until sometime tomorrow. Labs, cultures, CXR, UA, CT head for ICH. Anticipate admission to the hospital Lab Data Result diagrams: 05/23/21 13:27 05/23/21 13:27 Labs: Lab Results 05/23/21 05/23/21 05/23/21 Range/Units 13:26 13:26 13:26 WBC (4.8-10.8) X10*3/uL RBC (4.60-5.80) X10*6/uL Hgb (14.0-18.0) g/dl Hct (42.0-52.0) % MCV (80.0-98.0) fL MCH (27.0-33.0) pg MCHC (31.0-36.0) g/dl RDW (11.0-16.0) % Plt Count (160-400) X10*3/uL MPV (9.4-12.4) fL Immature Gran % (Auto) (0.0-0.4) % Neut % (Auto) (45-73) % Lymph % (Auto) (20-40) % [place] % (Auto) (2-11) % Eos % (Auto) (0-4) % Baso % (Auto) (0-2) % Lymph # (Auto) (1.2-4.9) X10*3/uL [place] # (Auto) (0.1-1.2) X10*3/uL Eos # (Auto) (0.0-0.4) X10*3/uL Baso # (Auto) (0.0-0.2) X10*3/uL Abs Immat Gran (auto) (0.00-0.03) X10*3/uL Absolute Neuts (auto) (2.0-8.3) x10*3/uL Absolute Nucleated RBC (0.0-0.012) X10*3/uL Nucleated RBC % (auto) (0.0-0.2) /100WBC VBG pH (7.32-7.43) VBG pCO2 mmHg VBG pO2 mmHg VBG HCO3 (22-26) mmol/L VBG O2 Saturation % VBG Base Excess mmol/L Sodium (135-145) mmol/L Potassium (3.3-5.1) mmol/L Chloride (96-108) mmol/L Carbon Dioxide (22-29) mmol/L Anion Gap (12-20) BUN (9-16) mg/dL Creatinine (0.5-1.4) mg/dL Estim Creat Clear Calc Estimated GFR Random Glucose (60-115) mg/dL Lactic Acid 1.3 (0.5-2.0) mmol/L Calcium (8.4-10.2) mg/dL Magnesium (1.6-2.6) mg/dL Total Bilirubin (0.0-1.0) mg/dL Direct Bilirubin (0.0-0.5) mg/dL AST (5-37) U/L ALT (0-40) U/L Alkaline Phosphatase (39-117) U/L Troponin I High Sens 21.4 (<3.5-35.0) ng/L B-Natriuretic Peptide (<100) pg/mL Total Protein (6.5-8.0) g/dL Albumin (3.5-5.0) g/dL Lipase (8-78) U/L Urine Color Urine Appearance Urine pH (5.0-8.0) Ur Specific Tyler (1.005-1.025) Urine Protein (NEG-TRACE) MG/DL Urine Glucose (UA) (NEG) MG/DL Urine Ketones (NEG) MG/DL Urine Blood (NEG) Urine Nitrite (NEG) Ur Leukocyte Esterase (NEG) Urine RBC (0) /HPF Urine WBC (0-4) /HPF Ur Squamous Epith Cells /LPF Urine Bacteria /LPF Urine Mucus /LPF COVID-19 (KYLE) Negative (Negative) COVID-19 Clin Com See Note 05/23/21 05/23/21 05/23/21 Range/Units 13:27 13:27 13:27 WBC 8.7 (4.8-10.8) X10*3/uL RBC 4.32 L (4.60-5.80) X10*6/uL Hgb 13.2 L (14.0-18.0) g/dl Hct 41.7 L (42.0-52.0) % MCV 96.5 (80.0-98.0) fL MCH 30.6 (27.0-33.0) pg MCHC 31.7 (31.0-36.0) g/dl RDW 14.4 (11.0-16.0) % Plt Count 155 L (160-400) X10*3/uL MPV 9.1 L (9.4-12.4) fL Immature Gran % (Auto) 0.6 H (0.0-0.4) % Neut % (Auto) 76.4 H (45-73) % Lymph % (Auto) 9.1 L (20-40) % [place] % (Auto) 11.0 (2-11) % Eos % (Auto) 2.7 (0-4) % Baso % (Auto) 0.2 (0-2) % Lymph # (Auto) 0.8 L (1.2-4.9) X10*3/uL [place] # (Auto) 1.0 (0.1-1.2) X10*3/uL Eos # (Auto) 0.2 (0.0-0.4) X10*3/uL Baso # (Auto) 0.0 (0.0-0.2) X10*3/uL Abs Immat Gran (auto) 0.05 H (0.00-0.03) X10*3/uL Absolute Neuts (auto) 6.6 (2.0-8.3) x10*3/uL Absolute Nucleated RBC 0.000 (0.0-0.012) X10*3/uL Nucleated RBC % (auto) 0.0 (0.0-0.2) /100WBC VBG pH (7.32-7.43) VBG pCO2 mmHg VBG pO2 mmHg VBG HCO3 (22-26) mmol/L VBG O2 Saturation % VBG Base Excess mmol/L Sodium 140 (135-145) mmol/L Potassium 3.4 (3.3-5.1) mmol/L Chloride 106 (96-108) mmol/L Carbon Dioxide 27 (22-29) mmol/L Anion Gap 10 L (12-20) BUN 22 H (9-16) mg/dL Creatinine 1.07 (0.5-1.4) mg/dL Estim Creat Clear Calc 58.4 Estimated GFR > 60 Random Glucose 87 (60-115) mg/dL Lactic Acid (0.5-2.0) mmol/L Calcium 7.8 L (8.4-10.2) mg/dL Magnesium 2.2 (1.6-2.6) mg/dL Total Bilirubin 2.5 H (0.0-1.0) mg/dL Direct Bilirubin 1.2 H (0.0-0.5) mg/dL AST 28 (5-37) U/L ALT 19 (0-40) U/L Alkaline Phosphatase 92 (39-117) U/L Troponin I High Sens (<3.5-35.0) ng/L B-Natriuretic Peptide 500 H (<100) pg/mL Total Protein 6.0 L (6.5-8.0) g/dL Albumin 3.1 L (3.5-5.0) g/dL Lipase 32 (8-78) U/L Urine Color Urine Appearance Urine pH (5.0-8.0) Ur Specific Tyler (1.005-1.025) Urine Protein (NEG-TRACE) MG/DL Urine Glucose (UA) (NEG) MG/DL Urine Ketones (NEG) MG/DL Urine Blood (NEG) Urine Nitrite (NEG) Ur Leukocyte Esterase (NEG) Urine RBC (0) /HPF Urine WBC (0-4) /HPF Ur Squamous Epith Cells /LPF Urine Bacteria /LPF Urine Mucus /LPF COVID-19 (KYLE) (Negative) COVID-19 Clin Com 05/23/21 05/23/21 Range/Units 13:33 13:37 WBC (4.8-10.8) X10*3/uL RBC (4.60-5.80) X10*6/uL Hgb (14.0-18.0) g/dl Hct (42.0-52.0) % MCV (80.0-98.0) fL MCH (27.0-33.0) pg MCHC (31.0-36.0) g/dl RDW (11.0-16.0) % Plt Count (160-400) X10*3/uL MPV (9.4-12.4) fL Immature Gran % (Auto) (0.0-0.4) % Neut % (Auto) (45-73) % Lymph % (Auto) (20-40) % [place] % (Auto) (2-11) % Eos % (Auto) (0-4) % Baso % (Auto) (0-2) % Lymph # (Auto) (1.2-4.9) X10*3/uL [place] # (Auto) (0.1-1.2) X10*3/uL Eos # (Auto) (0.0-0.4) X10*3/uL Baso # (Auto) (0.0-0.2) X10*3/uL Abs Immat Gran (auto) (0.00-0.03) X10*3/uL Absolute Neuts (auto) (2.0-8.3) x10*3/uL Absolute Nucleated RBC (0.0-0.012) X10*3/uL Nucleated RBC % (auto) (0.0-0.2) /100WBC VBG pH 7.44 H (7.32-7.43) VBG pCO2 36 mmHg VBG pO2 58 mmHg VBG HCO3 25 (22-26) mmol/L VBG O2 Saturation 84.0 % VBG Base Excess 1.3 mmol/L Sodium (135-145) mmol/L Potassium (3.3-5.1) mmol/L Chloride (96-108) mmol/L Carbon Dioxide (22-29) mmol/L Anion Gap (12-20) BUN (9-16) mg/dL Creatinine (0.5-1.4) mg/dL Estim Creat Clear Calc Estimated GFR Random Glucose (60-115) mg/dL Lactic Acid (0.5-2.0) mmol/L Calcium (8.4-10.2) mg/dL Magnesium (1.6-2.6) mg/dL Total Bilirubin (0.0-1.0) mg/dL Direct Bilirubin (0.0-0.5) mg/dL AST (5-37) U/L ALT (0-40) U/L Alkaline Phosphatase (39-117) U/L Troponin I High Sens (<3.5-35.0) ng/L B-Natriuretic Peptide (<100) pg/mL Total Protein (6.5-8.0) g/dL Albumin (3.5-5.0) g/dL Lipase (8-78) U/L Urine Color DK YELLOW Urine Appearance HAZY Urine pH 6.0 (5.0-8.0) Ur Specific Tyler 1.015 (1.005-1.025) Urine Protein TRACE (NEG-TRACE) MG/DL Urine Glucose (UA) NEG (NEG) MG/DL Urine Ketones NEG (NEG) MG/DL Urine Blood 2+ H (NEG) Urine Nitrite POS H (NEG) Ur Leukocyte Esterase 1+ H (NEG) Urine RBC 15-29 H (0) /HPF Urine WBC 76-150 H (0-4) /HPF Ur Squamous Epith Cells TRACE /LPF Urine Bacteria TRACE /LPF Urine Mucus TRACE /LPF COVID-19 (KYLE) (Negative) COVID-19 Clin Com ECG Data ECG #1: Attestation: I personally reviewed and interpreted this ECG as follows: ECG interpretation date: 05/23/21 ECG interpretation time: 14:44 Interpretation: Rate: 68 Rhythm: afib [place]: normal NSIVCD ST T wave : ST depression I and aVL, V4, V5, V6 no MADDIE qTC: normal prior studies: no acute ischemia no change from May 2021 The study has been interpreted contemporaneously by me. . Discharge Plan Discharge Clinical Impression: Acute UTI Fever Qualifiers: Fever type: unspecified Qualified Code(s): R50.9 - Fever, unspecified Patient Disposition: Admitted As Inpatient
--- NOTE | 2021-05-23 12:51 | ECG_ITS ---
Test Reason : AMS Blood Pressure : / mmHG Vent. Rate : 068 BPM Atrial Rate : 000 BPM P-R Int : 000 ms QRS Dur : 126 ms QT Int : 452 ms P-R-T Axes : 000 -13 178 degrees QTc Int : 480 ms Atrial fibrillation Non-specific intra-ventricular conduction block Inferior infarct (cited on or before 01-AUG-2002) Cannot rule out Anteroseptal infarct (cited on or before 03-AUG-2002) T wave abnormality, consider lateral ischemia Abnormal ECG When compared with ECG of 20-MAY-2021 07:04, No significant change was found Referred By: Nikole Balbuena Electronically Signed By:ANA PETTIT MD
[2021-05-23] MEDS: 0.9 % Sodium Chloride 500 ML IV (12:55)
[2021-05-23 13:35] LABS: MANUAL DIFF FLAG NO
[2021-05-23 13:38] LABS: Basophils Percent Auto 0.2 % (0-2); Eosinophils Absolute Auto 0.2 X10*3/uL (0.0-0.4); Eosinophils Percent Auto 2.7 % (0-4); Hematocrit 41.7 % (42.0-52.0); Hemoglobin 13.2 g/dl (14.0-18.0); Imm Gran Abs Auto 0.05 X10*3/uL (0.00-0.03); Imm Gran Pct Auto 0.6 % (0.0-0.4); Lymphocytes Absolute Auto 0.8 X10*3/uL (1.2-4.9); Lymphocytes Percent Auto 9.1 % (20-40); Mean Corpuscular HGB Conc 31.7 g/dl (31.0-36.0); Mean Corpuscular Hemoglobin 30.6 pg (27.0-33.0); Mean Corpuscular Volume 96.5 fL (80.0-98.0); Mean Platelet Volume 9.1 fL (9.4-12.4); Neutrophils Absolute Auto 6.6 x10*3/uL (2.0-8.3); Neutrophils Percent Auto 76.4 % (45-73); Platelet Count 155 X10*3/uL (160-400); Red Blood Count 4.32 X10*6/uL (4.60-5.80); Red Cell Distribution Width 14.4 % (11.0-16.0); White Blood Count 8.7 X10*3/uL (4.8-10.8)
[2021-05-23 13:40] LABS: VBG Base Excess 1.3 mmol/L; VBG HCO3 25 mmol/L (22-26); VBG pCO2 36 mmHg; VBG pH 7.44 (7.32-7.43); VBG pO2 58 mmHg
[2021-05-23 13:44] LABS: Venous Blood Gas Refer to POC result
[2021-05-23 13:48] LABS: Appearance Urine HAZY; Color Urine DK YELLOW; Glucose Urine UA NEG (NEG); Leukocyte Esterase Urine 1+ (NEG); Nitrite Urine POS (NEG); Specific Gravity - Urine 1.015 (1.005-1.025); UACC Culture Trigger YES; Urine Blood 2+ (NEG); Urine Ketones NEG (NEG); Urine Protein TRACE MG/DL (NEG-TRACE)
[2021-05-23 13:52] LABS: Lactic Acid 1.3 mmol/L (0.5-2.0)
[2021-05-23 13:57] LABS: Bacteria Urine TRACE /LPF; Mucus Urine TRACE /LPF; Squamous Epithelial Cell Urine TRACE /LPF
[2021-05-23 13:58] LABS: Alanine Aminotransferase 19 U/L (0-40); Albumin Level 3.1 g/dL (3.5-5.0); Alkaline Phosphatase 92 U/L (39-117); Anion Gap 10 (12-20); Aspartate Amino Transferase 28 U/L (5-37); Bilirubin Direct 1.2 mg/dL (0.0-0.5); Bilirubin Total 2.5 mg/dL (0.0-1.0); Blood Urea Nitrogen 22 mg/dL (9-16); Calcium 7.8 mg/dL (8.4-10.2); Carbon Dioxide 27 mmol/L (22-29); Chloride 106 mmol/L (96-108); Creatinine Clr Calc Pharmacy 58.4; Estimated Glomerular Filt Rate > 60; Glucose Random 87 mg/dL (60-115); Lipase 32 U/L (8-78); Magnesium 2.2 mg/dL (1.6-2.6); Potassium 3.4 mmol/L (3.3-5.1); Sodium 140 mmol/L (135-145)
[2021-05-23 13:59] LABS: COVID-19 Test Negative (Negative); IDNOW Serial# 55D5AD1C
[2021-05-23 14:02] LABS: B Type Natriuretic Peptide 500 pg/mL (<100)
[2021-05-23 14:02] LABS: Troponin-I High Sensitivity 21.4 ng/L (<3.5-35.0)
[2021-05-23] MEDS: Ertapenem Sodium 1 GM in 0.9 % Sodium Chloride 50 ML IV (14:12)
[2021-05-23] MEDS: Acetaminophen Oral Liquid 650 MG/20.3 ML SOLUTION PO (14:17)
--- NOTE | 2021-05-23 16:13 | PC.NURSE ---
Pt sleeping at this time. Responsive to name. Plan for admission. Afib in the 60's on the monitor. No signs of distress noted, call jauregui within reach, will continue to monitor.
--- NOTE | 2021-05-23 17:28 | P.HPHOSP_ITS ---
History of Present Illness Date of Service: 05/23/21 <MELBA Adams - Last Filed: 05/23/21 17:55> Attending physician on admission: Devika Cuba <MELBA Adams - Last Filed: 05/23/21 17:55> Chief Complaint: lethargy <MELBA Adams - Last Filed: 05/23/21 17:55> This is an 81 year old male with multiple medical issues including dementia, afib, HFrEF, discharged 05/22 after hospitalization for decompensated heart failure and UTI who was sent back to the hospital today for increased lethargy. He was discharged with ceftin for UTI, urine culture growing proteus, sensitivities still pending. Patient was noted to be more lethargic this morning and difficult to arouse. In the ED today, he had a fever of 100.3, he did not have any leukocytosis. The remainder of his lab work was at baseline. brain CT showed no acute intracranial pathology. Chest CT did not show any acute disease. He was given a dose of IV ertapenem and the decision was made to admit him to the hospital for further management encephalopathy and urinary infection. Due to his underlying dementia and lethargy, the patient was unable to provide much history. He states that he is feeling okay at the moment and knows that he is in the hospital. <MELBA Adams - Last Filed: 05/23/21 17:55> Review of Systems Review of Systems: Yes Unobtainable due to mental condition <MELBA Adams - Last Filed: 05/23/21 17:55> [facility] Medical History: Medical History (Updated 05/23/21 @ 17:43 by MELBA Adams) Afib Cardiac defibrillator in place CHF (congestive heart failure) Constipation Coronary artery disease HLD (hyperlipidemia) HTN (hypertension) Low back pain Myocardial infarct Osteoporosis Sick sinus syndrome Vascular dementia Vitamin D deficiency <MELBA Adams - Last Filed: 05/23/21 17:55> Family History: Family History Other CAD (coronary artery disease) <MELBA Adams - Last Filed: 05/23/21 17:55> Surgical History: Surgical History History of permanent cardiac pacemaker placement <MELBA Adams - Last Filed: 05/23/21 17:55> Social History: Social History Household Members: None Housing: Assisted Living Facility Do you presently have visiting nurse or other home services: No Unable to assess alcohol history related to: Unknown Alcohol intake: unknown Patient Tobacco Use Status: Former Tobacco user Quit Date: 20 years ago Tobacco use type: Cigarette Years Smoked: 50 years service: Yes Current occupational status: retired <MELBA Adams - Last Filed: 05/23/21 17:55> Meds Allergies/Adverse reactions: Allergies Allergy/AdvReac Type Severity Reaction Status Date / Time simvastatin [Zocor] Allergy Unknown Unknown Verified 05/26/21 12:05 Sulfa (Sulfonamide Allergy Unknown Unknown Verified 05/26/21 12:05 Antibiotics) DETERGENT Allergy Mild ITCHING Uncoded 05/26/21 12:05 SEASONAL ALLERGIES Allergy Mild RUNNY NOSE Uncoded 02/22/20 16:32 SNEEZING <MELBA Adams - Last Filed: 05/23/21 17:55> Active Medications: Current Medications Amiodarone HCl (Amiodarone Hcl 200 Mg Tablet) 200 mg PO DAILY [facility] Apixaban (Apixaban 5 Mg Tablet) 5 mg PO BID [facility] Aspirin (Aspirin Enteric Coated 81 Mg Tablet.) 81 mg PO DAILY [facility] Atorvastatin Calcium (Atorvastatin Calcium 40 Mg Tablet) 40 mg PO BEDTIME [facility] Carvedilol (Carvedilol 6.25 Mg Tablet) 6.25 mg PO BID [facility]; Protocol Folic Acid (Folic Acid 1 Mg Tablet) 1 mg PO DAILY [facility] Furosemide (Furosemide 40 Mg Tablet) 40 mg PO BID [facility]; Protocol Ertapenem 1 gm/ Sodium (Chloride) 50 mls @ 100 mls/hr IV Q24H [facility] Lactulose (Lactulose 20 Gm/30 Ml Solution) 20 gm PO DAILY PRN PRN Reason: Constipation Loratadine (Loratadine 10 Mg Tablet) 10 mg PO DAILY [facility] Omeprazole (Omeprazole 20 Mg Capsule.) 20 mg PO DAILY@0630 [facility] Pharmacy Consult (Consult Rx Perform Med Rec) 1 each MISCELLANE ONCE PRN PRN Reason: Consult order Senna (Sennosides 8.6 Mg Tablet) 17.2 mg PO BEDTIME [facility] Sodium Chloride (0.9 % Sodium Chloride Flush 3 Ml Syringe) 3 ml IVFLUSH QSHIFT [facility] <MELBA Adams - Last Filed: 05/23/21 17:55> Home medications: Home Medications Medication Instructions Recorded Confirmed Last Taken Type alendronate 70 mg tablet 1 tab PO MO 05/20/21 05/23/21 05/19/21 History amiodarone 200 mg tablet 1 tab PO DAILY 05/20/21 05/23/21 05/23/21 History aspirin 81 mg tablet,delayed 81 mg PO DAILY 05/20/21 05/23/21 05/23/21 History release atorvastatin 40 mg tablet 1 tab PO BEDTIME 05/20/21 05/23/21 05/22/21 History calcium carbonate 600 mg-vitamin 1 tab PO BID 05/20/21 05/23/21 05/23/21 History D3 5 mcg (200 unit) tablet (Calcium 600 + D(3)) carvedilol 6.25 mg tablet 1 tab PO BID 05/20/21 05/23/21 05/23/21 History fluvoxamine 100 mg tablet 1 tab PO BEDTIME 05/20/21 05/23/21 05/22/21 History folic acid 1 mg tablet 1 tab PO DAILY 05/20/21 05/23/21 05/23/21 History lactulose 10 gram/15 mL oral 20 ml PO DAILY PRN 05/20/21 05/23/21 Unknown History solution melatonin 5 mg tablet 5 mg PO BEDTIME PRN 05/20/21 05/23/21 05/15/21 History omeprazole 20 mg capsule,delayed 1 cap PO DAILY 05/20/21 05/23/21 05/23/21 History release potassium chloride 20 mEq 1 tab PO DAILY 05/20/21 05/23/21 05/23/21 History tablet,extended release(part/cryst) quetiapine 25 mg tablet 12.5 mg PO DAILY 05/20/21 05/23/21 05/23/21 History quetiapine 25 mg tablet 25 mg PO BEDTIME 05/20/21 05/23/21 05/22/21 History sennosides 8.6 mg tablet (Natural 17.2 mg PO BEDTIME 05/20/21 05/23/21 05/22/21 History Senna Laxative) trazodone 50 mg tablet 1 tab PO BEDTIME 05/20/21 05/23/21 05/22/21 History loratadine 10 mg tablet 10 mg PO DAILY 05/23/21 05/23/21 05/19/21 History <MELBA Adams - Last Filed: 05/23/21 17:55> Physical Exam Vital Signs and Narrative: Vital Signs: Last Vital Signs Temp 98.6 F 05/23/21 14:39 Pulse 61 05/23/21 16:56 Resp 20 05/23/21 16:56 BP 101/65 05/23/21 16:56 Pulse Ox 100 05/23/21 16:56 BMI result Body Mass Index 24.0 <MELBA Adams - Last Filed: 05/23/21 17:55> Const: Other: arousable to verbal stimuli, falls asleep easily, only answering simple questions <MELBA Adams - Last Filed: 05/23/21 17:55> General: lethargic <MELBA Adams Last Filed: 05/23/21 17:55> Nutritional Appearance: well nourished <MELBA Adams - Last Filed: 05/23/21 17:55> Orientation/consciousness: lethargic <MELBA Adams Last Filed: 05/23/21 17:55> HENMT: Head: Yes normocephalic and Yes atraumatic <MELBA Adams Last Filed: 05/23/21 17:55> Eyes: Sclerae: sclerae normal <MELBA Adams Last Filed: 05/23/21 17:55> Resp: Effort & Inspection: normal respiratory effort and no respiratory distress <MELBA Adams - Last Filed: 05/23/21 17:55> Cardio: Rate: regular rate <MELBA Adams Last Filed: 05/23/21 17:55> Rhythm: abnormal rhythm irregularly irregular <MELBA Adams Last Filed: 05/23/21 17:55> GI: Palpation (GI): Soft to palpation and nontender <MELBA Adams - Last Filed: 05/23/21 17:55> Extrem: Other: able to move all 4 extremities spontaneously <MELBA Adams - Last Filed: 05/23/21 17:55> Results Labs CBC and Chem 7: : 05/25/21 06:33 05/25/21 06:33 <MELBA Adams - Last Filed: 05/23/21 17:55> Labs: Laboratory Results - last 24 hr 05/23/21 05/23/21 05/23/21 13:26 13:26 13:26 MCV MCH MCHC RDW Plt Count MPV Immature Gran % (Auto) Neut % (Auto) Lymph % (Auto) [place] % (Auto) Eos % (Auto) Baso % (Auto) Lymph # (Auto) [place] # (Auto) Eos # (Auto) Baso # (Auto) Abs Immat Gran (auto) Absolute Neuts (auto) Absolute Nucleated RBC Nucleated RBC % (auto) VBG pH VBG pCO2 VBG pO2 VBG HCO3 VBG O2 Saturation VBG Base Excess Anion Gap Estim Creat Clear Calc Estimated GFR Random Glucose Lactic Acid 1.3 Calcium Magnesium Total Bilirubin Direct Bilirubin AST ALT Alkaline Phosphatase Troponin I High Sens 21.4 B-Natriuretic Peptide Total Protein Albumin Lipase Urine Color Urine Appearance Urine pH Ur Specific [place] Urine Protein Urine Glucose (UA) Urine Ketones Urine Blood Urine Nitrite Ur Leukocyte Esterase Urine RBC Urine WBC Ur Squamous Epith Cells Urine Bacteria Urine Mucus COVID-19 (KYLE) Negative COVID-19 Clin Com See Note 05/23/21 05/23/21 05/23/21 13:27 13:27 13:27 MCV 96.5 MCH 30.6 MCHC 31.7 RDW 14.4 Plt Count 155 L MPV 9.1 L Immature Gran % (Auto) 0.6 H Neut % (Auto) 76.4 H Lymph % (Auto) 9.1 L [place] % (Auto) 11.0 Eos % (Auto) 2.7 Baso % (Auto) 0.2 Lymph # (Auto) 0.8 L [place] # (Auto) 1.0 Eos # (Auto) 0.2 Baso # (Auto) 0.0 Abs Immat Gran (auto) 0.05 H Absolute Neuts (auto) 6.6 Absolute Nucleated RBC 0.000 Nucleated RBC % (auto) 0.0 VBG pH VBG pCO2 VBG pO2 VBG HCO3 VBG O2 Saturation VBG Base Excess Anion Gap 10 L Estim Creat Clear Calc 58.4 Estimated GFR > 60 Random Glucose 87 Lactic Acid Calcium 7.8 L Magnesium 2.2 Total Bilirubin 2.5 H Direct Bilirubin 1.2 H AST 28 ALT 19 Alkaline Phosphatase 92 Troponin I High Sens B-Natriuretic Peptide 500 H Total Protein 6.0 L Albumin 3.1 L Lipase 32 Urine Color Urine Appearance Urine pH Ur Specific [place] Urine Protein Urine Glucose (UA) Urine Ketones Urine Blood Urine Nitrite Ur Leukocyte Esterase Urine RBC Urine WBC Ur Squamous Epith Cells Urine Bacteria Urine Mucus COVID-19 (KYLE) COVID-19 Clin Com 05/23/21 05/23/21 13:33 13:37 MCV MCH MCHC RDW Plt Count MPV Immature Gran % (Auto) Neut % (Auto) Lymph % (Auto) [place] % (Auto) Eos % (Auto) Baso % (Auto) Lymph # (Auto) [place] # (Auto) Eos # (Auto) Baso # (Auto) Abs Immat Gran (auto) Absolute Neuts (auto) Absolute Nucleated RBC Nucleated RBC % (auto) VBG pH 7.44 H VBG pCO2 36 VBG pO2 58 VBG HCO3 25 VBG O2 Saturation 84.0 VBG Base Excess 1.3 Anion Gap Estim Creat Clear Calc Estimated GFR Random Glucose Lactic Acid Calcium Magnesium Total Bilirubin Direct Bilirubin AST ALT Alkaline Phosphatase Troponin I High Sens B-Natriuretic Peptide Total Protein Albumin Lipase Urine Color DK YELLOW Urine Appearance HAZY Urine pH 6.0 Ur Specific [place] 1.015 Urine Protein TRACE Urine Glucose (UA) NEG Urine Ketones NEG Urine Blood 2+ H Urine Nitrite POS H Ur Leukocyte Esterase 1+ H Urine RBC 15-29 H Urine WBC 76-150 H Ur Squamous Epith Cells TRACE Urine Bacteria TRACE Urine Mucus TRACE COVID-19 (KYLE) COVID-19 Clin Com <MELBA Adams - Last Filed: 05/23/21 17:55> Imaging Radiologist's Impressions: Impressions Chest X-Ray 05/23/21 13:16 IMPRESSION: New increased density in the right upper lung questionable for loculated fluid in the major fissure versus infiltrate. Loss of the left hemidiaphragm questionable for left lower lobe atelectasis or pneumonia. Chest CT 05/23/21 15:18 IMPRESSION: No definite acute pneumonia appreciated. Cannot exclude acute on chronic disease within the left lower lobe. Chronic pleural-parenchymal disease as described with most significant volume loss seen within the left lower lobe. There is diffuse bronchial wall thickening seen bilaterally but again more prominent within the left lower lobe. There are regions of cylindrical bronchiectasis. Cardiomegaly without pulmonary edema. Prominent ascending thoracic aorta at 4 cm in diameter. Head CT 05/23/21 15:18 IMPRESSION: No acute intracranial pathology. There are diffuse periventricular white matter low density consistent with microangiopathy. <MELBA Adams - Last Filed: 05/23/21 17:55> Assessment and Plan (1) UTI (urinary tract infection): Status: Acute <MELBA Adams - Last Filed: 05/23/21 17:55> (2) Acute on chronic heart failure with preserved ejection fraction (HFpEF): Status: Acute <MELBA Adams - Last Filed: 05/23/21 17:55> (3) Toxic metabolic encephalopathy: Status: Acute <MELBA Adams - Last Filed: 05/23/21 17:55> (4) Vascular dementia: Status: Acute <MELBA Adams - Last Filed: 05/23/21 17:55> This is an 81-year-old male with history of atrial fibrillation recently started Eliquis, HFrEF (EF 10% s/p AICD),dementia recently admitted for acute decompensated heart failure and UTI here with increasing lethargy UTI presumably r/t resistant organism. worsening on ceftin given ertapenem in ED, will continue for now sensitivities not back at this time -Follow final urine culture sensitivities - follow repeat blood cultures acute toxic metabolic encephalopathy on a background of vascular dementia related to acute illness -hold sedating medication HFrEF does not appear fluid overloaded at this time continue home dose of Coreg Hold Lasix permanent atrial fibrillation continue amiodarone, Coreg continue anticoagulation with Eliquis mood hold seroquel, trazodone for sedation fluvoxamine is non-formulary dvt ppx - eliquis code status - DNR/DNI; molst in chart & code status confirmed with his children over the phone. attending: dr cuba <MELBA Adams - Last Filed: 05/23/21 17:55> Quality Stroke Does the patient have a stroke diagnosis?: No <MELBA Adams - Last Filed: 05/23/21 17:55> VTE Prior VTE?: No <MELBA Adams - Last Filed: 05/23/21 17:55> VTE Risk Level:: Medical - moderate - high <MELBA Adams - Last Filed: 05/23/21 17:55> VTE Device Contraindication: Treatment Not Indicated <MELBA Adams - Last Filed: 05/23/21 17:55> VTE Drug Contraindication: N/A - Med Ordered <MELBA Adams - Last Filed: 05/23/21 17:55>
--- NOTE | 2021-05-23 17:51 | P.EN_ITS ---
Event Note Date of Service: 05/26/21 Event Note: patient seen and examined patient was recently in the hospital because of CHF exacerbation as well as had dysuria. Treated with IV Lasix and seems to be improving and subsequently sent to rehab with p.o. Lasix as well as antibiotics for UTI- subsequently brou ght today because patient is very generalized weak as well as somewhat confused also. patient is easily arousable and answers only few questions says no chest pain or any body pain or any shortness of breath also said that he seems to be feeling better - he could not elaborate on it, also randomly said that I did not eat yesterday and today. lab imaging and EKG personally reviewed and interpreted. lab diaz no leukocytosis, renal function seems slightly better than before. Electrolytes seems normal vbg: pH 7.44, not retaining CO2. liver function seems similar to before CT head negative ct chest: no acute pneumonia UA abnormal, previous urine culture was growing Proteus mirabilis but says sensitivities are still not available blood cultures sent, urine culture also ordered. EKG: no significant change from before except v4for has slight T inversion trops neg x1 set , another added physical exam: Appearance: Aox2 ( Moves his name and in the hospital.? Eyes: Pupils equal, round and reactive to light.? Sclera nonicteric.? ENT:? Moist mucous membranes seems slightly dry. cvs: irregular rythem, [id number] res: clear to auscultation ,no rhonchii or rales. abd: no rebound or guarding ,nt, bs present. ext: pulses present , no cyanosis . neuro: No pronator drift, or facial droop, he could able to follow simple commands moves arm and legs and open eyes with verbal command. Assessment and plan coordinated in APCs note agree with the plan patient has toxic metabolic encephalopathy probably related to UTI,? question dehydration, also psych medication might be contributing hold psych medication, patient started on meropenem since sensitivities for Proteus is still pending hold Lasix for today neuro check EKG diaz: has T-wave inversion in t4, patient does not say any chest pain but unreliable we will check another troponin patient is already on aspirin, statin, beta-clarita. If new chest pain or any telemetry changes- please repeat EKG and if needed may need cardiology evaluation.
[2021-05-23 18:32] LABS: Troponin-I High Sensitivity 21.2 ng/L (<3.5-35.0)
[2021-05-23] MEDS: carvediloL 6.25 MG TABLET PO (20:35)
[2021-05-23] MEDS: Sennosides 8.6 MG TABLET 17.2 MG PO (20:35)
[2021-05-23] MEDS: Apixaban 5 MG TABLET PO (20:35)
[2021-05-23] MEDS: Atorvastatin Calcium 40 MG TABLET PO (20:35)
--- NOTE | 2021-05-23 21:08 | PC.NURSE ---
Pt resting on stretcher in NAD with eyes closed in between care, breathing with ease on RA. Pt arouses to verbal stimulation, is oriented to person place and time but disoriented to situation. pt is lethargic. Pt's daughter at bedside, providing pt water. Pt swallowing without any deficits. Pt's stretcher in lowest locked position, rails raised, call jauregui within reach. Pt offers no complaints of pain/discomfort. Pt medicated per AUG with pills whole in applesauce.
--- NOTE | 2021-05-23 22:13 | MHC.CM.PN ---
CM met with admitted patient with bed assignment pending and his daughter/HCP Fouzia Irwin ([phone]). Pt has some confusion at baseline and has increased confusion with UTI. Interview conducted with daughter. IMM reviewed and signed per protocol with daughter/HCP 05/23/2021@2049. Copy given and to medical records. No HCP on file. HCP at facility. MOLST from facility- pt DNI/DNI, May use CPAP. Pt lives at [facility]. Pt was in for many years: [employer]. Pt has [employer] insurance. Pt had healthcare at [facility]. Pt uses a cane. Pt is fully vaccinated and boosted, unknown search specialist. Will call [facility] in am. D/C plan is to return to [facility]. Transportation by [facility] for patient safety. CM to follow for d/c needs.
[2021-05-24 05:31] LABS: MANUAL DIFF FLAG NO
[2021-05-24 05:40] LABS: Basophils Percent Auto 0.1 % (0-2); Eosinophils Absolute Auto 0.3 X10*3/uL (0.0-0.4); Eosinophils Percent Auto 3.5 % (0-4); Hematocrit 41.5 % (42.0-52.0); Hemoglobin 13.1 g/dl (14.0-18.0); Imm Gran Abs Auto 0.04 X10*3/uL (0.00-0.03); Imm Gran Pct Auto 0.5 % (0.0-0.4); Lymphocytes Absolute Auto 0.7 X10*3/uL (1.2-4.9); Lymphocytes Percent Auto 9.5 % (20-40); Mean Corpuscular HGB Conc 31.6 g/dl (31.0-36.0); Mean Corpuscular Hemoglobin 30.4 pg (27.0-33.0); Mean Corpuscular Volume 96.3 fL (80.0-98.0); Mean Platelet Volume 8.7 fL (9.4-12.4); Monocytes Absolute Auto 0.8 X10*3/uL (0.1-1.2); Monocytes Percent Auto 9.8 % (2-11); Neutrophils Absolute Auto 5.9 x10*3/uL (2.0-8.3); Neutrophils Percent Auto 76.6 % (45-73); Platelet Count 154 X10*3/uL (160-400); Red Blood Count 4.31 X10*6/uL (4.60-5.80); Red Cell Distribution Width 14.2 % (11.0-16.0); White Blood Count 7.7 X10*3/uL (4.8-10.8)
[2021-05-24 05:54] LABS: Anion Gap 12 (12-20); Blood Urea Nitrogen 21 mg/dL (9-16); Calcium 7.7 mg/dL (8.4-10.2); Carbon Dioxide 27 mmol/L (22-29); Chloride 104 mmol/L (96-108); Creatinine Clr Calc Pharmacy 63.7; Estimated Glomerular Filt Rate > 60; Glucose Random 85 mg/dL (60-115); Potassium 3.4 mmol/L (3.3-5.1); Sodium 140 mmol/L (135-145)
[2021-05-24 06:12] VITALS: BP 125/63; PULSE 61; RESP 17; TEMP 36.6
[2021-05-24] MEDS: Omeprazole 20 MG CAPSULE.DR PO (07:17)
[2021-05-24 08:15] VITALS: BP 125/63; PULSE 61
[2021-05-24] MEDS: Aspirin Enteric Coated 81 MG TABLET.DR PO (08:15)
[2021-05-24] MEDS: Folic Acid 1 MG TABLET PO (08:15)
[2021-05-24] MEDS: Amiodarone HCL 200 MG TABLET PO (08:15)
[2021-05-24] MEDS: carvediloL 6.25 MG TABLET PO ×2 (08:15→19:27)
[2021-05-24] MEDS: 0.9 % Sodium Chloride Flush 3 ML SYRINGE IVFLUSH ×3 (08:15→23:30)
[2021-05-24] MEDS: Apixaban 5 MG TABLET PO ×2 (08:15→19:28)
[2021-05-24] MEDS: Loratadine 10 MG TABLET PO (08:15)
--- NOTE | 2021-05-24 08:23 | PC.NURSE ---
patient sleeping, wakes to verbal stimulus, no c/o pain or discomfort, pills given in applesauce, director public afib, pt alert to self only, will continue to monitor.
--- NOTE | 2021-05-24 12:33 | HO.PM.IMPN ---
Subjective Subjective Date of Service: 05/24/21 <MELBA Adams - Last Filed: 05/24/21 12:50> 05/25/21 <Charly Lynn MD - Last Filed: 05/25/21 10:14> Interval History: seen and examined this morning Follow-up for encephalopathy, UTI More awake, has no specific complaints due to underlying dementia, patient not reliable historian, full review of systems difficult to obtain <MELBA Adams - Last Filed: 05/24/21 12:50> Review of Systems Review of Systems: Yes Unobtainable due to mental condition <MELBA Adams - Last Filed: 05/24/21 12:50> Physical Exam Vital Signs: Vital Signs: Last Vital Signs Temp 97.8 F 05/24/21 06:12 Pulse 61 05/24/21 08:15 Resp 17 05/24/21 06:12 BP 125/63 05/24/21 08:15 Pulse Ox 95 05/23/21 23:27 BMI result Body Mass Index 24.0 <MELBA Adams - Last Filed: 05/24/21 12:50> Const: Other: arousable to verbal stimuli, falls asleep easily, only answering simple questions <MELBA Adams - Last Filed: 05/24/21 12:50> General: cooperative, comfortable, no acute distress, alert and awake <MELBA Adams - Last Filed: 05/24/21 12:50> Nutritional Appearance: well nourished <MELBA Adams - Last Filed: 05/24/21 12:50> HENMT: Head: Yes normocephalic and Yes atraumatic <MELBA Adams - Last Filed: 05/24/21 12:50> Eyes: Sclerae: sclerae normal <MELBA Adams - Last Filed: 05/24/21 12:50> Resp: Effort & Inspection: normal respiratory effort and no respiratory distress <MELBA Adams Last Filed: 05/24/21 12:50> Cardio: Rate: regular rate <MELBA Adams - Last Filed: 05/24/21 12:50> Rhythm: abnormal rhythm irregularly irregular <MELBA Adams - Last Filed: 05/24/21 12:50> GI: Inspection: No distended <MELBA Adams - Last Filed: 05/24/21 12:50> Palpation (GI): Soft to palpation and nontender <MELBA Adams - Last Filed: 05/24/21 12:50> Extrem: Other: able to move all 4 extremities spontaneously <MELBA Adams Last Filed: 05/24/21 12:50> Objective Data Active Medications Acetaminophen (Acetaminophen Oral Liquid 650 Mg/20.3 Ml Solution) 650 mg PO Q6H PRN PRN Reason: fever, mild pain (1-3) Amiodarone HCl (Amiodarone Hcl 200 Mg Tablet) 200 mg PO DAILY [facility] Last Admin: 05/24/21 08:15 Dose: 200 mg Documented by: JENNIFER Apixaban (Apixaban 5 Mg Tablet) 5 mg PO BID [facility] Last Admin: 05/24/21 08:15 Dose: 5 mg Documented by: JENNIFER Artificial Tears (Artificial Tears 15 Ml Drops) 1 drop EYE-BOTH Q4H PRN PRN Reason: Dry Eyes Aspirin (Aspirin Enteric Coated 81 Mg Tablet.Dr) 81 mg PO DAILY [facility] Last Admin: 05/24/21 08:15 Dose: 81 mg Documented by: JENNIFER Atorvastatin Calcium (Atorvastatin Calcium 40 Mg Tablet) 40 mg PO BEDTIME [facility] Last Admin: 05/23/21 20:35 Dose: 40 mg Documented by: SUE Carvedilol (Carvedilol 6.25 Mg Tablet) 6.25 mg PO BID [facility]; Protocol Last Admin: 05/24/21 08:15 Dose: 6.25 mg Documented by: JENNIFER Folic Acid (Folic Acid 1 Mg Tablet) 1 mg PO DAILY [facility] Last Admin: 05/24/21 08:15 Dose: 1 mg Documented by: JENNIFER Meropenem 1 gm/ Sodium (Chloride) 100 mls @ 100 mls/hr IV Q8H [facility] Last Infusion: 05/24/21 09:14 Dose: 0 mls/hr Documented by: JENNIFER Lactulose (Lactulose 20 Gm/30 Ml Solution) 20 gm PO DAILY PRN PRN Reason: Constipation Loratadine (Loratadine 10 Mg Tablet) 10 mg PO DAILY [facility] Last Admin: 05/24/21 08:15 Dose: 10 mg Documented by: JENNIFER Omeprazole (Omeprazole 20 Mg Capsule.Dr) 20 mg PO DAILY@0630 [facility] Last Admin: 05/24/21 07:17 Dose: 20 mg Documented by: TURNER Pharmacy Consult (Consult Rx Perform Med Rec) 1 each MISCELLANE ONCE PRN PRN Reason: Consult order Senna (Sennosides 8.6 Mg Tablet) 17.2 mg PO BEDTIME [facility] Last Admin: 05/23/21 20:35 Dose: 17.2 mg Documented by: SUE Sodium Chloride (0.9 % Sodium Chloride Flush 3 Ml Syringe) 3 ml IVFLUSH QSHIFT [facility] Last Admin: 05/24/21 08:15 Dose: 3 ml Documented by: JENNIFER <MELBA Adams - Last Filed: 05/24/21 12:50> Labs CBC & Chem 7: : 05/25/21 06:33 05/25/21 06:33 <MELBA Adams - Last Filed: 05/24/21 12:50> Labs: Laboratory Results - last 24 hr 05/23/21 05/23/21 05/23/21 13:26 13:26 13:26 MCV MCH MCHC RDW Plt Count MPV Immature Gran % (Auto) Neut % (Auto) Lymph % (Auto) [place]ukes % (Auto) Eos % (Auto) Baso % (Auto) Lymph # (Auto) [place] # (Auto) Eos # (Auto) Baso # (Auto) Abs Immat Gran (auto) Absolute Neuts (auto) Absolute Nucleated RBC Nucleated RBC % (auto) VBG pH VBG pCO2 VBG pO2 VBG HCO3 VBG O2 Saturation VBG Base Excess Anion Gap Estim Creat Clear Calc Estimated GFR Random Glucose Lactic Acid 1.3 Calcium Magnesium Total Bilirubin Direct Bilirubin AST ALT Alkaline Phosphatase Troponin I High Sens 21.4 B-Natriuretic Peptide Total Protein Albumin Lipase Urine Color Urine Appearance Urine pH Ur Specific [place] Urine Protein Urine Glucose (UA) Urine Ketones Urine Blood Urine Nitrite Ur Leukocyte Esterase Urine RBC Urine WBC Ur Squamous Epith Cells Urine Bacteria Urine Mucus COVID-19 (KYLE) Negative COVID-19 Clin Com See Note 05/23/21 05/23/21 05/23/21 13:27 13:27 13:27 MCV 96.5 MCH 30.6 MCHC 31.7 RDW 14.4 Plt Count 155 L MPV 9.1 L Immature Gran % (Auto) 0.6 H Neut % (Auto) 76.4 H Lymph % (Auto) 9.1 L [place] % (Auto) 11.0 Eos % (Auto) 2.7 Baso % (Auto) 0.2 Lymph # (Auto) 0.8 L [place] # (Auto) 1.0 Eos # (Auto) 0.2 Baso # (Auto) 0.0 Abs Immat Gran (auto) 0.05 H Absolute Neuts (auto) 6.6 Absolute Nucleated RBC 0.000 Nucleated RBC % (auto) 0.0 VBG pH VBG pCO2 VBG pO2 VBG HCO3 VBG O2 Saturation VBG Base Excess Anion Gap 10 L Estim Creat Clear Calc 58.4 Estimated GFR > 60 Random Glucose 87 Lactic Acid Calcium 7.8 L Magnesium 2.2 Total Bilirubin 2.5 H Direct Bilirubin 1.2 H AST 28 ALT 19 Alkaline Phosphatase 92 Troponin I High Sens B-Natriuretic Peptide 500 H Total Protein 6.0 L Albumin 3.1 L Lipase 32 Urine Color Urine Appearance Urine pH Ur Specific [place] Urine Protein Urine Glucose (UA) Urine Ketones Urine Blood Urine Nitrite Ur Leukocyte Esterase Urine RBC Urine WBC Ur Squamous Epith Cells Urine Bacteria Urine Mucus COVID-19 (KYLE) COVID-19 Clin Com 05/23/21 05/23/21 05/23/21 13:33 13:37 18:05 MCV MCH MCHC RDW Plt Count MPV Immature Gran % (Auto) Neut % (Auto) Lymph % (Auto) [place] % (Auto) Eos % (Auto) Baso % (Auto) Lymph # (Auto) [place] # (Auto) Eos # (Auto) Baso # (Auto) Abs Immat Gran (auto) Absolute Neuts (auto) Absolute Nucleated RBC Nucleated RBC % (auto) VBG pH 7.44 H VBG pCO2 36 VBG pO2 58 VBG HCO3 25 VBG O2 Saturation 84.0 VBG Base Excess 1.3 Anion Gap Estim Creat Clear Calc Estimated GFR Random Glucose Lactic Acid Calcium Magnesium Total Bilirubin Direct Bilirubin AST ALT Alkaline Phosphatase Troponin I High Sens 21.2 B-Natriuretic Peptide Total Protein Albumin Lipase Urine Color DK YELLOW Urine Appearance HAZY Urine pH 6.0 Ur Specific [place] 1.015 Urine Protein TRACE Urine Glucose (UA) NEG Urine Ketones NEG Urine Blood 2+ H Urine Nitrite POS H Ur Leukocyte Esterase 1+ H Urine RBC 15-29 H Urine WBC 76-150 H Ur Squamous Epith Cells TRACE Urine Bacteria TRACE Urine Mucus TRACE COVID-19 (KYLE) COVID-19 [facility] 05/24/21 05/24/21 05:27 05:27 MCV 96.3 MCH 30.4 MCHC 31.6 RDW 14.2 Plt Count 154 L MPV 8.7 L Immature Gran % (Auto) 0.5 H Neut % (Auto) 76.6 H Lymph % (Auto) 9.5 L [place] % (Auto) 9.8 Eos % (Auto) 3.5 Baso % (Auto) 0.1 Lymph # (Auto) 0.7 L [place] # (Auto) 0.8 Eos # (Auto) 0.3 Baso # (Auto) 0.0 Abs Immat Gran (auto) 0.04 H Absolute Neuts (auto) 5.9 Absolute Nucleated RBC 0.000 Nucleated RBC % (auto) 0.0 VBG pH VBG pCO2 VBG pO2 VBG HCO3 VBG O2 Saturation VBG Base Excess Anion Gap 12 Estim Creat Clear Calc 63.7 Estimated GFR > 60 Random Glucose 85 Lactic Acid Calcium 7.7 L Magnesium Total Bilirubin Direct Bilirubin AST ALT Alkaline Phosphatase Troponin I High Sens B-Natriuretic Peptide Total Protein Albumin Lipase Urine Color Urine Appearance Urine pH Ur Specific [place] Urine Protein Urine Glucose (UA) Urine Ketones Urine Blood Urine Nitrite Ur Leukocyte Esterase Urine RBC Urine WBC Ur Squamous Epith Cells Urine Bacteria Urine Mucus COVID-19 (KYLE) COVID-19 Clin Com <MELBA Adams - Last Filed: 05/24/21 12:50> Microbiology Microbiology Results: Microbiology 05/23/21 Unknown Urine Culture - Final Urine Catheterized - Straight Catheter No growth. <MELBA Adams - Last Filed: 05/24/21 12:50> Assessment and Plan (1) Vascular dementia: Status: Acute <MELBA Adams - Last Filed: 05/24/21 12:50> (2) Toxic metabolic encephalopathy: Status: Acute <MELBA Adams - Last Filed: 05/24/21 12:50> (3) Fever: Status: Acute <MELBA Adams - Last Filed: 05/24/21 12:50> (4) Acute UTI: Status: Acute <MELBA Adams - Last Filed: 05/24/21 12:50> Assessment and Plan: This is an 81-year-old male with history of atrial fibrillation recently started Eliquis, HFrEF (EF 10% s/p AICD),dementia recently admitted for acute decompensated heart failure and UTI here with increasing lethargy UTI. afebrile overnight. no leukocytosis UCx growing proteus. presumably resistant organism. worsening on ceftin sensitivites being sent to reference lab for confirmation and not likely to be back for up to a week per micro repeat UCx from 05/23 final no growth? continue meropenem for now repeat UA ID consult follow repeat blood cultures acute toxic metabolic encephalopathy on a background of vascular dementia related to acute illness/UTI. improving more awake this morning hold sedating medication (seroquel, trazodone) thrombocytopenia ? r/t to acute illness follow cbc HFrEF does not appear fluid overloaded at this time continue home dose of Coreg Hold Lasix, resume likely tomorrow permanent atrial fibrillation continue amiodarone, Coreg continue anticoagulation with Eliquis mood hold seroquel, trazodone for sedation fluvoxamine is non-formulary dvt ppx - eliquis code status - DNR/DNI; molst in chart & code status confirmed with his children over the phone. attending: dr lynn <MELBA Adams - Last Filed: 05/24/21 12:50> Quality Stroke Does the patient have a stroke diagnosis?: No <MELBA Adams - Last Filed: 05/24/21 12:50> VTE Prior VTE?: No <MELBA Adams - Last Filed: 05/24/21 12:50> VTE Risk Level:: Medical - moderate - high <MELBA Adams - Last Filed: 05/24/21 12:50> VTE Device Contraindication: Treatment Not Indicated <MELBA Adams - Last Filed: 05/24/21 12:50> VTE Drug Contraindication: N/A - Med Ordered <MELBA Adams - Last Filed: 05/24/21 12:50>
[2021-05-24 13:15] VITALS: BP 131/56; PULSE 59; RESP 18; TEMP 36.4; O2SAT 99
--- NOTE | 2021-05-24 13:53 | PC.NURSE ---
patient awake/alert to self, pt refused lunch, pt stated I am not hungry, I will just take some water patient was given ice water per his request, pt has no c/o pain or discomfort at this time, will continue to monitor.
[2021-05-24 16:27] VITALS: BP 136/64; PULSE 64; RESP 16; TEMP 36.7; O2SAT 96
--- NOTE | 2021-05-24 16:30 | PC.NURSE ---
patient sleeping, woke to verbal stimulus, iv antibiotics hung per order, pt positioned to comfort, bed alarm on, vss, small products ii assembler intact- afib on monitor 60s, will continue to monitor.
--- NOTE | 2021-05-24 18:40 | PC.NURSE ---
patient currently awake/alert, sitting up eating dinner independently, pt refused spaghetti offered and requested a sandwich, pt was given the sandwich as well as juice and his pudding from his tray. pts daughter called earlier in the day and stated he previously was able to feed himself independently until he got sick. Will pass along in report to tell daughter that he was able to eat dinner independently.
[2021-05-24] MEDS: Atorvastatin Calcium 40 MG TABLET PO (19:27)
[2021-05-24] MEDS: Sennosides 8.6 MG TABLET 17.2 MG PO (19:27)
[2021-05-24 21:54] VITALS: BP 101/32; PULSE 72; RESP 14; TEMP 36.6; O2SAT 95
[2021-05-24 22:04] LABS: Appearance Urine CLEAR; Color Urine OTHER; Glucose Urine UA NEG (NEG); Leukocyte Esterase Urine TRACE (NEG); Nitrite Urine NEG (NEG); PH 5.5 (5.0-8.0); Specific Gravity - Urine 1.025 (1.005-1.025); UACC Culture Trigger YES; Urine Blood 1+ (NEG); Urine Ketones 5 MG/DL (NEG); Urine Protein TRACE MG/DL (NEG-TRACE)
[2021-05-24 22:25] LABS: Bacteria Urine TRACE /LPF; UACC CULT YES
[2021-05-24] MEDS: Acetaminophen Oral Liquid 650 MG/20.3 ML SOLUTION PO (23:28)
[2021-05-25] VITALS (10 sets, daily range): BP systolic 93–135; BP diastolic 46–77; PULSE 55–69; RESP 16–37; TEMP 36.4–36.8; O2SAT 95–98
[2021-05-25] MEDS: Omeprazole 20 MG CAPSULE.DR PO (06:23)
[2021-05-25 07:06] LABS: MANUAL DIFF FLAG NO
[2021-05-25 07:12] LABS: Basophils Percent Auto 0.2 % (0-2); Eosinophils Absolute Auto 0.3 X10*3/uL (0.0-0.4); Eosinophils Percent Auto 4.8 % (0-4); Hematocrit 43.3 % (42.0-52.0); Hemoglobin 13.4 g/dl (14.0-18.0); Imm Gran Abs Auto 0.04 X10*3/uL (0.00-0.03); Imm Gran Pct Auto 0.7 % (0.0-0.4); Lymphocytes Absolute Auto 0.7 X10*3/uL (1.2-4.9); Lymphocytes Percent Auto 11.5 % (20-40); Mean Corpuscular HGB Conc 30.9 g/dl (31.0-36.0); Mean Corpuscular Hemoglobin 29.5 pg (27.0-33.0); Mean Corpuscular Volume 95.4 fL (80.0-98.0); Mean Platelet Volume 9.3 fL (9.4-12.4); Monocytes Absolute Auto 0.7 X10*3/uL (0.1-1.2); Monocytes Percent Auto 12.4 % (2-11); Neutrophils Percent Auto 70.4 % (45-73); Platelet Count 170 X10*3/uL (160-400); Red Blood Count 4.54 X10*6/uL (4.60-5.80); Red Cell Distribution Width 14.1 % (11.0-16.0); White Blood Count 5.7 X10*3/uL (4.8-10.8)
[2021-05-25 07:25] LABS: Anion Gap 14 (12-20); Blood Urea Nitrogen 22 mg/dL (9-16); Calcium 7.9 mg/dL (8.4-10.2); Carbon Dioxide 23 mmol/L (22-29); Chloride 106 mmol/L (96-108); Creatinine Clr Calc Pharmacy 73.5; Estimated Glomerular Filt Rate > 60; Glucose Random 81 mg/dL (60-115); Potassium 3.6 mmol/L (3.3-5.1); Sodium 139 mmol/L (135-145)
[2021-05-25] MEDS: Amiodarone HCL 200 MG TABLET PO (08:48)
[2021-05-25] MEDS: Apixaban 5 MG TABLET PO ×2 (08:49→21:22)
[2021-05-25] MEDS: Loratadine 10 MG TABLET PO (08:49)
[2021-05-25] MEDS: Folic Acid 1 MG TABLET PO (08:49)
[2021-05-25] MEDS: Aspirin Enteric Coated 81 MG TABLET.DR PO (08:49)
[2021-05-25] MEDS: carvediloL 6.25 MG TABLET PO ×2 (08:49→21:22)
[2021-05-25] MEDS: 0.9 % Sodium Chloride Flush 3 ML SYRINGE IVFLUSH ×2 (08:49→15:11)
--- NOTE | 2021-05-25 09:00 | PC.NURSE ---
patient alert to self, oob with 2 person assist to commode, pt was unable to have bm, pt urinating in urinal, no c/o pain or discomfort, pt encouraged to increase po intake, pt refused breakfast, call jauregui within reach, will continue to monitor.
--- NOTE | 2021-05-25 12:43 | P.PNIM_ITS ---
Subjective Subjective Date of Service: 05/25/21 Interval History: seen and examined this morning follow up for UTI, encephalopathy awake and alert feeling constipated this morning no fever, chills, abdominal pain, nausea or vomiting Review of Systems Review of Systems: Yes all other systems are reviewed and are negative Constitutional Constitutional: Denies chills and Denies fever(s) Cardiovascular Cardiovascular: Denies chest pain Respiratory Respiratory: Denies cough Gastrointestinal Gastrointestinal: Denies abdominal pain Physical Exam Verdana 4l Vital Signs: Verdana 4d Verdana 4d Vital Signs: Verdana 4d Verdana 4Bd Last Vital Signs Verdana 4d Lead Machinist New 4d Lead Machinist New 4d Temp 97.9 F 05/25/21 09:30 Lead Machinist New 4d Pulse 55 05/25/21 09:30 Lead Machinist NewNew 4d Resp 18 05/25/21 09:30 BP 119/65 05/25/21 09:30 Pulse Ox 95 05/25/21 09:30 BMI result Body Mass Index 24.0 Const: General: cooperative, comfortable, no acute distress, alert and awake Nutritional Appearance: well nourished HENMT: Head: Yes normocephalic and Yes atraumatic Eyes: Sclerae: sclerae normal Resp: Effort & Inspection: normal respiratory effort and no respiratory distress Cardio: Rate: regular rate Rhythm: abnormal rhythm irregularly irregular GI: Inspection: No distended Palpation (GI): Soft to palpation and nontender Extrem: Other: able to move all 4 extremities spontaneously Objective Data Active Medications Acetaminophen (Acetaminophen Oral Liquid 650 Mg/20.3 Ml Solution) 650 mg PO Q6H PRN PRN Reason: fever, mild pain (1-3) Last Admin: 05/24/21 23:28 Dose: 650 mg Documented by: RAFAEL Amiodarone HCl (Amiodarone Hcl 200 Mg Tablet) 200 mg PO DAILY [facility] Last Admin: 05/25/21 08:48 Dose: 200 mg Documented by: JENNIFER Apixaban (Apixaban 5 Mg Tablet) 5 mg PO BID [facility] Last Admin: 05/25/21 08:49 Dose: 5 mg Documented by: JENNIFER Artificial Tears (Artificial Tears 15 Ml Drops) 1 drop EYE-BOTH Q4H PRN PRN Reason: Dry Eyes Aspirin (Aspirin Enteric Coated 81 Mg Tablet.Dr) 81 mg PO DAILY [facility] Last Admin: 05/25/21 08:49 Dose: 81 mg Documented by: JENNIFER Atorvastatin Calcium (Atorvastatin Calcium 40 Mg Tablet) 40 mg PO BEDTIME [facility] Last Admin: 05/24/21 19:27 Dose: 40 mg Documented by: RAFAEL Carvedilol (Carvedilol 6.25 Mg Tablet) 6.25 mg PO BID [facility]; Protocol Last Admin: 05/25/21 08:49 Dose: 6.25 mg Documented by: JENNIFER Docusate Sodium (Docusate Sodium 100 Mg/10 Ml Liquid) 100 mg PO DAILY [facility] Folic Acid (Folic Acid 1 Mg Tablet) 1 mg PO DAILY [facility] Last Admin: 05/25/21 08:49 Dose: 1 mg Documented by: JENNIFER Meropenem 1 gm/ Sodium (Chloride) 100 mls @ 100 mls/hr IV Q8H [facility] Last Infusion: 05/25/21 09:49 Dose: 0 mls/hr Documented by: JENNIFER Lactulose (Lactulose 20 Gm/30 Ml Solution) 20 gm PO DAILY PRN PRN Reason: Constipation Loratadine (Loratadine 10 Mg Tablet) 10 mg PO DAILY [facility] Last Admin: 05/25/21 08:49 Dose: 10 mg Documented by: JENNIFER Omeprazole (Omeprazole 20 Mg Capsule.Dr) 20 mg PO DAILY@0630 [facility] Last Admin: 05/25/21 06:23 Dose: 20 mg Documented by: RAFAEL Pharmacy Consult (Consult Rx Perform Med Rec) 1 each MISCELLANE ONCE PRN PRN Reason: Consult order Senna (Sennosides 8.6 Mg Tablet) 17.2 mg PO BEDTIME [facility] Last Admin: 05/24/21 19:27 Dose: 17.2 mg Documented by: RAFAEL Sodium Chloride (0.9 % Sodium Chloride Flush 3 Ml Syringe) 3 ml IVFLUSH QSHIFT [facility] Last Admin: 05/25/21 08:49 Dose: 3 ml Documented by: JENNIFER Labs CBC & Chem 7: 05/25/21 06:33 05/25/21 06:33 Labs: Laboratory Results - last 24 hr 05/24/21 05/25/21 05/25/21 21:03 06:33 06:33 MCV 95.4 MCH 29.5 MCHC 30.9 L RDW 14.1 Plt Count 170 MPV 9.3 L Immature Gran % (Auto) 0.7 H Neut % (Auto) 70.4 Lymph % (Auto) 11.5 L [place] % (Auto) 12.4 H Eos % (Auto) 4.8 H Baso % (Auto) 0.2 Lymph # (Auto) 0.7 L [place] # (Auto) 0.7 Eos # (Auto) 0.3 Baso # (Auto) 0.0 Abs Immat Gran (auto) 0.04 H Absolute Neuts (auto) 4.0 Absolute Nucleated RBC 0.000 Nucleated RBC % (auto) 0.0 Anion Gap 14 Estim Creat Clear Calc 73.5 Estimated GFR > 60 Random Glucose 81 Calcium 7.9 L Urine Color OTHER Urine Appearance CLEAR Urine pH 5.5 Ur Specific [place] 1.025 Urine Protein TRACE Urine Glucose (UA) NEG Urine Ketones 5 Urine Blood 1+ H Urine Nitrite NEG Ur Leukocyte Esterase TRACE H Urine RBC 10-14 H Urine WBC 10-14 H Ur Squamous Epith Cells NONE Urine Bacteria TRACE Microbiology Microbiology Results: Microbiology 05/23/21 14:11 Blood Culture - Preliminary Blood - Venous No growth after 24 hours. 05/23/21 14:04 Blood Culture - Preliminary Blood - Venous No growth after 24 hours. 05/23/21 Unknown Urine Culture - Final Urine Catheterized - Straight Catheter No growth. Assessment and Plan (1) Vascular dementia: Status: Acute (2) Toxic metabolic encephalopathy: Status: Acute (3) Fever: Status: Acute (4) UTI (urinary tract infection): Status: Acute Assessment and Plan: This is an 81-year-old male with history of atrial fibrillation recently started Eliquis, HFrEF (EF 10% s/p AICD),dementia recently admitted for acute decompensated heart failure and UTI here with increasing lethargy UTI. afebrile overnight. no leukocytosis UCx growing proteus. presumably resistant organism. worsening on ceftin sensitivites being sent to reference lab for confirmation and not likely to be back for up to a week per micro repeat UCx from 05/23 final no growth? continue meropenem for now repeat UA ID consult blood cultures negative x 24 hours acute toxic metabolic encephalopathy. seems back to baseline at this time on a background of vascular dementia related to acute illness/UTI and probably sedating medications as well. continue to hold sedating medication (seroquel, trazodone) thrombocytopenia. resolved. ? r/t to acute illness follow cbc HFrEF does not appear fluid overloaded at this time continue home dose of Coreg BP soft overnight, will continue to hold lasix permanent atrial fibrillation continue amiodarone, Coreg continue anticoagulation with Eliquis mood hold seroquel, trazodone for sedation fluvoxamine is non-formulary dvt ppx - eliquis code status - DNR/DNI; molst in chart & code status confirmed with his children over the phone. attending: dr baldwin Quality Stroke Does the patient have a stroke diagnosis?: No VTE Prior VTE?: No VTE Risk Level:: Medical - moderate - high VTE Device Contraindication: Treatment Not Indicated VTE Drug Contraindication: N/A - Med Ordered
--- NOTE | 2021-05-25 14:05 | PC.NURSE ---
patient currently sleeping, prior to pt has had no c/o pain or discomfort, patient used urinal with assistance, pt has been having poor po intake today other than drinking water, classroom monitor intact, call jauregui within reach, will continue to monitor.
[2021-05-25] MEDS: Sennosides 8.6 MG TABLET 17.2 MG PO (21:22)
[2021-05-25] MEDS: Atorvastatin Calcium 40 MG TABLET PO (21:23)
[2021-05-26] VITALS (7 sets, daily range): BP systolic 109–145; BP diastolic 59–75; PULSE 54–68; RESP 16–20; TEMP 36.2–37.1; O2SAT 90–97
--- NOTE | 2021-05-26 07:57 | PC.NURSE ---
Pt alert, oriented to person and place at this time. Iv antibiotics completed, pt states he feels like he has to urinate, urinal offered but pt unable to go, explained to pt that is normal when you have a UTI. Pt denies any pain at this time. A fib on the monitor in the 60's, lungsdimished in the bases, skin intact. Report to Feliz in [facility] [place].
[2021-05-26] MEDS: Aspirin Enteric Coated 81 MG TABLET.DR PO (09:42)
[2021-05-26] MEDS: Apixaban 5 MG TABLET PO ×2 (09:42→21:42)
[2021-05-26] MEDS: carvediloL 6.25 MG TABLET PO ×2 (09:42→21:42)
[2021-05-26] MEDS: Omeprazole 20 MG CAPSULE.DR PO (09:42)
[2021-05-26] MEDS: Folic Acid 1 MG TABLET PO (09:42)
[2021-05-26] MEDS: Loratadine 10 MG TABLET PO (09:42)
[2021-05-26] MEDS: Amiodarone HCL 200 MG TABLET PO (09:42)
[2021-05-26] MEDS: Docusate Sodium 100 MG/10 ML LIQUID PO (09:43)
[2021-05-26] MEDS: 0.9 % Sodium Chloride Flush 3 ML SYRINGE IVFLUSH ×2 (09:43→21:42)
[2021-05-26] MEDS: Lactulose 20 GM/30 ML SOLUTION PO (11:49)
--- NOTE | 2021-05-26 13:48 | PM.DS ---
DS: Providers Provider Date of Service: 05/26/21 <Mary Trujillo NP - Last Filed: 05/27/21 12:18> Date of admission: 05/23/21 16:41 <Mary Trujillo NP - Last Filed: 05/27/21 12:18> Primary care physician: Unknown Physician <Mary Trujillo NP - Last Filed: 05/27/21 12:18> Consults: 05/23/21 17:10 Consult to Infectious Diseases Routine Consulting Provider: Shannan Bates Reason for consultation: uti Has provider been notified: No <Mary Trujillo NP - Last Filed: 05/27/21 12:18> Attending physician on discharge: Carmelo Colby <Mary Trujillo NP - Last Filed: 05/27/21 12:18> Discharging clinician: Mary Trujillo <Mary Trujillo NP - Last Filed: 05/27/21 12:18> DS: Diagnosis Discharge Diagnosis (1) UTI (urinary tract infection): Status: Acute <Mary Trujillo NP - Last Filed: 05/27/21 12:18> (2) Toxic metabolic encephalopathy: Status: Acute <Mary Trujillo NP - Last Filed: 05/27/21 12:18> (3) Vascular dementia: Status: Acute <Mary Trujillo NP - Last Filed: 05/27/21 12:18> DS: Summary Hospital Course Hospital Course: HP as per admitting provider This is an 81 year old male with multiple medical issues including dementia, afib, HFrEF, discharged 05/22 after hospitalization for decompensated heart failure and UTI who was sent back to the hospital today for increased lethargy. He was discharged with ceftin for UTI, urine culture growing proteus, sensitivities still pending. ? Patient was noted to be more lethargic this morning and difficult to arouse. In the ED today, he had a fever of 100.3, he did not have any leukocytosis. The remainder of his lab work was at baseline.? brain CT showed no acute intracranial pathology. Chest CT did not show any acute disease.? He was given a dose of IV ertapenem and the decision was made to admit him to the hospital for further management encephalopathy and urinary infection. Due to his underlying dementia and lethargy, the patient was unable to provide much history.? He states that he is feeling okay at the moment and knows that he is in the hospital . UTI. afebrile overnight. no leukocytosis UCx growing proteus. presumably resistant organism. worsening on ceftin sensitivites being sent to reference lab for confirmation and not likely to be back for up to a week per micro ID consult rec 14 total days of ertapenem blood cultures negative x 24 hours acute toxic metabolic encephalopathy. seems back to baseline at this time on a background of vascular dementia related to acute illness/UTI and probably sedating medications as well. continue to hold sedating medication (seroquel, trazodone), may consider restarting medications <Mary Trujillo NP - Last Filed: 05/27/21 12:18> Time Spent with Patient Time attestation: Total time spent providing and/or coordinating discharge services: <Mary Trujillo NP - Last Filed: 05/27/21 12:18> Discharge coordination time: Greater than 30 minutes <Mary Trujillo NP - Last Filed: 05/27/21 12:18> Quality: Stroke Does the patient have a stroke diagnosis?: No <Mary Trujillo NP - Last Filed: 05/27/21 12:18> Physical Exam Vital Signs: Vital Signs: Last Vital Signs Temp 97.3 F 05/26/21 11:50 Pulse 58 05/26/21 11:50 Resp 18 05/26/21 11:50 BP 109/59 L 05/26/21 11:50 Pulse Ox 97 05/26/21 11:50 BMI result Body Mass Index 24.0 <Mary Trujillo NP - Last Filed: 05/27/21 12:18> Appearing in no acute distress head is normocephalic atraumatic eyes pupils are PERRLA sclera is anicteric mouth throat mucous membranes are intact and moist neck is supple no lymphadenopathy, no JVD noted lung sounds are clear to auscultation heart regular rate rhythm, clear S1, S2 positive bowel sounds, abdomen is soft, nontender neuro patient is alert , confused <Mary Trujillo NP - Last Filed: 05/27/21 12:18> DS: Data Data Completed and Pending Labs on day of discharge: Preliminary micro results at discharge 05/23/21 14:11 Blood Culture - Preliminary Blood - Venous No growth after 48 hours. 05/23/21 14:04 Blood Culture - Preliminary Blood - Venous No growth after 48 hours. <Mary Trujillo NP - Last Filed: 05/27/21 12:18> Discharge Plan Discharge Anticipated Discharge Date/Time: 05/27/21 15:30 <Mary Trujillo NP - Last Filed: 05/27/21 12:18> Patient Disposition: Xfer LTC <Mary Trujillo NP - Last Filed: 05/27/21 12:18> Discharge Diagnosis: Proteus urinary tract infection Acute toxic metabolic encephalopathy <Mary Trujillo NP - Last Filed: 05/27/21 12:18> Proteus urinary tract infection Acute toxic metabolic encephalopathy <Carmeol Colby MD - Last Filed: 05/27/21 12:46> Referrals: [facility] [Other] - 1 Week <Mary Trujillo NP - Last Filed: 05/27/21 12:18> Discharge Medications: New ertapenem [Invanz] 1 gram recon soln 1 g IV DAILY Qty: 12 RF: 0 Continued loratadine 10 mg Tablet 10 mg PO DAILY RF: 0 quetiapine 25 mg Tablet 25 mg PO BEDTIME RF: 0 calcium carbonate-vitamin D3 [Calcium 600 + D(3)] 600 mg-5 mcg (200 unit) Tablet 1 tab PO BID RF: 0 aspirin 81 mg Tablet,Delayed Release (Dr/Ec) 81 mg PO DAILY RF: 0 melatonin 5 mg Tablet 5 mg PO BEDTIME PRN (Reason: Insomnia) RF: 0 sennosides [Natural Senna Laxative] 8.6 mg tablet 17.2 mg PO BEDTIME RF: 0 atorvastatin 40 mg tablet 1 tab PO BEDTIME RF: 0 carvedilol 6.25 mg tablet 1 tab PO BID RF: 0 amiodarone 200 mg tablet 1 tab PO DAILY RF: 0 alendronate 70 mg tablet 1 tab PO MO RF: 0 fluvoxamine 100 mg tablet 1 tab PO BEDTIME RF: 0 folic acid 1 mg tablet 1 tab PO DAILY RF: 0 lactulose 10 gram/15 mL solution 20 ml PO DAILY PRN (Reason: Constipation) RF: 0 quetiapine 25 mg Tablet 12.5 mg PO DAILY RF: 0 omeprazole 20 mg capsule,delayed release(DR/EC) 1 cap PO DAILY RF: 0 trazodone 50 mg tablet 1 tab PO BEDTIME RF: 0 potassium chloride 20 mEq tablet,ER particles/crystals 1 tab PO DAILY RF: 0 Eliquis 5 mg tablet 5 mg PO BID 30 Days Qty: 60 RF: 0 furosemide [Lasix] 40 mg tablet 40 mg PO BID 30 Days Qty: 60 RF: 0 Linzess 290 mcg capsule 290 mcg PO QAM Qty: 30 RF: 4 Discontinued cefuroxime axetil 250 mg tablet 250 mg PO BID 4 Days Qty: 8 RF: 0 <Mary Trujillo NP - Last Filed: 05/27/21 12:18> Discharge Orders: Discharge Order (Routine); Ordered 05/27/21 Ordered By: Mary Trujillo <Mary Trujillo NP - Last Filed: 05/27/21 12:18> Diet: advance to usual diet <Mary Trujillo NP - Last Filed: 05/27/21 12:18> advance to usual diet <Carmelo Colby MD - Last Filed: 05/27/21 12:46> Activity on Discharge: As tolerated <Mary Trujillo NP - Last Filed: 05/27/21 12:18> As tolerated <Carmelo Colby MD - Last Filed: 05/27/21 12:46> Stand Alone Forms: Patient Portal Discharge page <Mary Trujillo NP - Last Filed: 05/27/21 12:18> Care Plan Goals: continue IV antibiotics <Mary Trujillo NP - Last Filed: 05/27/21 12:18> Health Concerns: UTI, urine culture growing Proteus Acute toxic metabolic encephalopathy <Mary Trujillo NP - Last Filed: 05/27/21 12:18> Plan of Treatment: You will be on an IV medication called Ertapenem, continue this for a total of 14 days and discontinue the Picc line catheter after last dose. Last dose of Ertapenem given at 1pm on 05/27/21 at [facility] Your urine culture was positive for Proteus and the sensitivities were sent out to a reference lab for confirmation and takes approximately 1 week to return, for now you will continue the above antibiotics <Mary Trujillo NP - Last Filed: 05/27/21 12:18> Assessment: see discharge summary Attending Attestation: I have personally seen and examined the patient independently (on the date of service as documented by NPP), reviewed the NPP history, exam and?MDM and agree with the assessment and plan as?written <Mary Trujillo NP - Last Filed: 05/27/21 12:18>
--- NOTE | 2021-05-26 14:00 | P.CNID_ITS ---
History of Present Illness Data of Consult Service Date: 05/26/21 Requesting physician: Melchor Garcia Primary Care Provider: Unknown Physician HPI Reason for consult: encephalopathy He presents to hospital from facility with confusion. He has had low grade temperature to 100.3 He has no nausea or vomiting. He is more alert today. Review of Systems Review of Systems: Yes Unobtainable due to mental condition PMFSH Past Medical History Medical History Afib Cardiac defibrillator in place CHF (congestive heart failure) Constipation Coronary artery disease HLD (hyperlipidemia) HTN (hypertension) Low back pain Myocardial infarct Osteoporosis Sick sinus syndrome Vascular dementia Vitamin D deficiency Family History Family History Other CAD (coronary artery disease) Family history: reviewed and not pertinent Surgical History Surgical History History of permanent cardiac pacemaker placement Social History Social History Household Members: None Housing: Assisted Living Facility Do you presently have visiting nurse or other home services: No Unable to assess alcohol history related to: Unknown Alcohol intake: unknown Patient Tobacco Use Status: Former Tobacco user Quit Date: 20 years ago Tobacco use type: Cigarette Years Smoked: 50 years service: Yes Current occupational status: retired Meds Allergies Allergy/AdvReac Type Severity Reaction Status Date / Time simvastatin [Zocor] Allergy Unknown Unknown Verified 05/26/21 12:05 Sulfa (Sulfonamide Allergy Unknown Unknown Verified 05/26/21 12:05 Antibiotics) DETERGENT Allergy Mild ITCHING Uncoded 05/26/21 12:05 SEASONAL ALLERGIES Allergy Mild RUNNY NOSE Uncoded 02/22/20 16:32 SNEEZING Active Medications: Current Medications Acetaminophen (Acetaminophen Oral Liquid 650 Mg/20.3 Ml Solution) 650 mg PO Q6H PRN PRN Reason: fever, mild pain (1-3) Last Admin: 05/24/21 23:28 Dose: 650 mg Documented by: Amiodarone HCl (Amiodarone Hcl 200 Mg Tablet) 200 mg PO DAILY SARAH Last Admin: 05/26/21 09:42 Dose: 200 mg Documented by: Apixaban (Apixaban 5 Mg Tablet) 5 mg PO BID [facility] Last Admin: 05/26/21 09:42 Dose: 5 mg Documented by: Artificial Tears (Artificial Tears 15 Ml Drops) 1 drop EYE-BOTH Q4H PRN PRN Reason: Dry Eyes Aspirin (Aspirin Enteric Coated 81 Mg Tablet.) 81 mg PO DAILY [facility] Last Admin: 05/26/21 09:42 Dose: 81 mg Documented by: Atorvastatin Calcium (Atorvastatin Calcium 40 Mg Tablet) 40 mg PO BEDTIME [facility] Last Admin: 05/25/21 21:23 Dose: 40 mg Documented by: Carvedilol (Carvedilol 6.25 Mg Tablet) 6.25 mg PO BID [facility]; Protocol Last Admin: 05/26/21 09:42 Dose: 6.25 mg Documented by: Docusate Sodium (Docusate Sodium 100 Mg/10 Ml Liquid) 100 mg PO DAILY [facility] Last Admin: 05/26/21 09:43 Dose: 100 mg Documented by: Folic Acid (Folic Acid 1 Mg Tablet) 1 mg PO DAILY [facility] Last Admin: 05/26/21 09:42 Dose: 1 mg Documented by: Meropenem 1 gm/ Sodium (Chloride) 100 mls @ 100 mls/hr IV Q8H [facility] Last Admin: 05/26/21 09:36 Dose: Not Given Documented by: Lactulose (Lactulose 20 Gm/30 Ml Solution) 20 gm PO DAILY PRN PRN Reason: Constipation Last Admin: 05/26/21 11:49 Dose: 20 gm Documented by: Loratadine (Loratadine 10 Mg Tablet) 10 mg PO DAILY [facility] Last Admin: 05/26/21 09:42 Dose: 10 mg Documented by: Omeprazole (Omeprazole 20 Mg Capsule.) 20 mg PO DAILY@0630 [facility] Last Admin: 05/26/21 09:42 Dose: 20 mg Documented by: Pharmacy Consult (Consult Rx Perform Med Rec) 1 each MISCELLANE ONCE PRN PRN Reason: Consult order Senna (Sennosides 8.6 Mg Tablet) 17.2 mg PO BEDTIME [facility] Last Admin: 05/25/21 21:22 Dose: 17.2 mg Documented by: Sodium Chloride (0.9 % Sodium Chloride Flush 3 Ml Syringe) 3 ml IVFLUSH QSHIFT [facility] Last Admin: 05/26/21 09:43 Dose: 3 ml Documented by: Home Medications Medication Instructions Recorded Confirmed Last Taken Type alendronate 70 mg tablet 1 tab PO MO 05/20/21 05/23/21 05/19/21 History amiodarone 200 mg tablet 1 tab PO DAILY 05/20/21 05/23/21 05/23/21 History aspirin 81 mg tablet,delayed 81 mg PO DAILY 05/20/21 05/23/21 05/23/21 History release atorvastatin 40 mg tablet 1 tab PO BEDTIME 05/20/21 05/23/21 05/22/21 History calcium carbonate 600 mg-vitamin 1 tab PO BID 05/20/21 05/23/21 05/23/21 History D3 5 mcg (200 unit) tablet (Calcium 600 + D(3)) carvedilol 6.25 mg tablet 1 tab PO BID 05/20/21 05/23/21 05/23/21 History fluvoxamine 100 mg tablet 1 tab PO BEDTIME 05/20/21 05/23/21 05/22/21 History folic acid 1 mg tablet 1 tab PO DAILY 05/20/21 05/23/21 05/23/21 History lactulose 10 gram/15 mL oral 20 ml PO DAILY PRN 05/20/21 05/23/21 Unknown History solution melatonin 5 mg tablet 5 mg PO BEDTIME PRN 05/20/21 05/23/21 05/15/21 History omeprazole 20 mg capsule,delayed 1 cap PO DAILY 05/20/21 05/23/21 05/23/21 History release potassium chloride 20 mEq 1 tab PO DAILY 05/20/21 05/23/21 05/23/21 History tablet,extended release(part/cryst) quetiapine 25 mg tablet 12.5 mg PO DAILY 05/20/21 05/23/21 05/23/21 History quetiapine 25 mg tablet 25 mg PO BEDTIME 05/20/21 05/23/21 05/22/21 History sennosides 8.6 mg tablet (Natural 17.2 mg PO BEDTIME 05/20/21 05/23/21 05/22/21 History Senna Laxative) trazodone 50 mg tablet 1 tab PO BEDTIME 05/20/21 05/23/21 05/22/21 History loratadine 10 mg tablet 10 mg PO DAILY 05/23/21 05/23/21 05/19/21 History Physical Exam Vital Signs: Vital Signs: Last Vital Signs Temp 97.3 F 05/26/21 11:50 Pulse 58 05/26/21 11:50 Resp 18 05/26/21 11:50 BP 109/59 L 05/26/21 11:50 Pulse Ox 97 05/26/21 11:50 BMI result Body Mass Index 24.0 Const: General: cooperative Eyes: Pupils: Equal, round and reactive pupils present Resp: Effort & Inspection: normal respiratory effort Cardio: Rate: regular rate Rhythm: regular rhythm GI: Palpation (GI): Soft to palpation and nontender Neuro: Cranial nerves: Yes Equal, round and reactive pupils present Extrem: General: Yes normal to inspection Results Labs CBC & Chem 7: 05/25/21 06:33 05/25/21 06:33 Microbiology Microbiology Results: Microbiology 05/23/21 14:11 Blood - Venous Blood Culture - Preliminary No growth after 48 hours. 05/23/21 14:04 Blood - Venous Blood Culture - Preliminary No growth after 48 hours. 05/23/21 Unknown Urine Catheterized - Straight Catheter Urine Culture - Final No growth. Assessment and Plan (1) Acute UTI: Status: Acute (2) Toxic metabolic encephalopathy: Status: Acute (3) Fever: Qualifiers: Fever type: unspecified Qualified Code(s): R50.9 - Fever, unspecified Status: Acute Acute encephalopathy with possible resistant UTI He is doing better now He is not septic Would continue Ertapenem for total 14 days.
--- NOTE | 2021-05-26 14:16 | MHC.CM.PN ---
pt to be dcd today to [facility] at 6:00 call made to naresh garcia [phone] to notify of dc called betty [facility] booked with [facility]
[2021-05-26 15:53] LABS: COVID-19 Test Negative (Negative)
--- NOTE | 2021-05-26 15:59 | HO.PM.IMPN ---
Subjective Subjective Date of Service: 05/26/21 Review of Systems Follow up UTI, encephalopathy More alert today but still confused with baseline dementia Physical Exam Vital Signs: Vital Signs: Last Vital Signs Temp 98 F 05/26/21 15:23 Pulse 68 05/26/21 15:23 Resp 18 05/26/21 15:23 BP 130/70 05/26/21 15:23 Pulse Ox 96 05/26/21 15:23 BMI result Body Mass Index 24.0 Objective Data Active Medications Acetaminophen (Acetaminophen Oral Liquid 650 Mg/20.3 Ml Solution) 650 mg PO Q6H PRN PRN Reason: fever, mild pain (1-3) Last Admin: 05/24/21 23:28 Dose: 650 mg Documented by: RAFAEL Amiodarone HCl (Amiodarone Hcl 200 Mg Tablet) 200 mg PO DAILY [facility] Last Admin: 05/26/21 09:42 Dose: 200 mg Documented by: KALIA Apixaban (Apixaban 5 Mg Tablet) 5 mg PO BID [facility] Last Admin: 05/26/21 09:42 Dose: 5 mg Documented by: KALIA Artificial Tears (Artificial Tears 15 Ml Drops) 1 drop EYE-BOTH Q4H PRN PRN Reason: Dry Eyes Aspirin (Aspirin Enteric Coated 81 Mg Tablet.Dr) 81 mg PO DAILY [facility] Last Admin: 05/26/21 09:42 Dose: 81 mg Documented by: KALIA Atorvastatin Calcium (Atorvastatin Calcium 40 Mg Tablet) 40 mg PO BEDTIME [facility] Last Admin: 05/25/21 21:23 Dose: 40 mg Documented by: BETTY Carvedilol (Carvedilol 6.25 Mg Tablet) 6.25 mg PO BID [facility]; Protocol Last Admin: 05/26/21 09:42 Dose: 6.25 mg Documented by: KALIA Docusate Sodium (Docusate Sodium 100 Mg/10 Ml Liquid) 100 mg PO DAILY [facility] Last Admin: 05/26/21 09:43 Dose: 100 mg Documented by: KALIA Folic Acid (Folic Acid 1 Mg Tablet) 1 mg PO DAILY [facility] Last Admin: 05/26/21 09:42 Dose: 1 mg Documented by: KALIA Meropenem 1 gm/ Sodium (Chloride) 100 mls @ 100 mls/hr IV Q8H [facility] Last Admin: 05/26/21 09:36 Dose: Not Given Documented by: KALIA Non-Admin Reason: last dose given in ED too late Lactulose (Lactulose 20 Gm/30 Ml Solution) 20 gm PO DAILY PRN PRN Reason: Constipation Last Admin: 05/26/21 11:49 Dose: 20 gm Documented by: KALIA Loratadine (Loratadine 10 Mg Tablet) 10 mg PO DAILY [facility] Last Admin: 05/26/21 09:42 Dose: 10 mg Documented by: KALIA Omeprazole (Omeprazole 20 Mg Capsule.Dr) 20 mg PO DAILY@0630 [facility] Last Admin: 05/26/21 09:42 Dose: 20 mg Documented by: KALIA Pharmacy Consult (Consult Rx Perform Med Rec) 1 each MISCELLANE ONCE PRN PRN Reason: Consult order Senna (Sennosides 8.6 Mg Tablet) 17.2 mg PO BEDTIME [facility] Last Admin: 05/25/21 21:22 Dose: 17.2 mg Documented by: BETTY Sodium Chloride (0.9 % Sodium Chloride Flush 3 Ml Syringe) 3 ml IVFLUSH QSHIFT [facility] Last Admin: 05/26/21 09:43 Dose: 3 ml Documented by: KALIA Labs CBC & Chem 7: 05/25/21 06:33 05/25/21 06:33 Labs: Laboratory Results - last 24 hr 05/26/21 14:00 COVID-19 (KYLE) Negative COVID-19 Clin Com See Note Microbiology Microbiology Results: Microbiology 05/23/21 14:11 Blood Culture - Preliminary Blood - Venous No growth after 48 hours. 05/23/21 14:04 Blood Culture - Preliminary Blood - Venous No growth after 48 hours. Assessment and Plan (1) Vascular dementia: Status: Acute (2) Toxic metabolic encephalopathy: Status: Acute (3) Acute UTI: Status: Acute Assessment and Plan: This is an 81-year-old male with history of atrial fibrillation recently started Eliquis, HFrEF (EF 10% s/p AICD),dementia recently admitted for acute decompensated heart failure and UTI here with increasing lethargy UTI. afebrile overnight. no leukocytosis UCx growing proteus. presumably resistant organism. worsening on ceftin sensitivites being sent to reference lab for confirmation and not likely to be back for up to a week per micro continue meropenem for now ID consult rec 14 days of ertapenem blood cultures negative x 24 hours acute toxic metabolic encephalopathy. seems back to baseline at this time on a background of vascular dementia related to acute illness/UTI and probably sedating medications as well. continue to hold sedating medication (seroquel, trazodone) thrombocytopenia. resolved. ? r/t to acute illness follow cbc HFrEF does not appear fluid overloaded at this time continue home dose of Coreg BP soft overnight, will continue to hold lasix permanent atrial fibrillation continue amiodarone, Coreg continue anticoagulation with Eliquis mood hold seroquel, trazodone for sedation fluvoxamine is non-formulary DISPO dc to STR after midline insertion dvt ppx - eliquis code status - DNR/DNI; molst in chart & code status confirmed with his children over the phone. attending Dr. Colby Quality Stroke Does the patient have a stroke diagnosis?: No VTE Prior VTE?: No VTE Risk Level:: Medical - moderate - high VTE Device Contraindication: Treatment Not Indicated VTE Drug Contraindication: N/A - Med Ordered
--- NOTE | 2021-05-26 19:48 | PC.NURSE ---
Unable to place midline catheter after multiple attempts by Job Gonzalez RN and Dandre Graham RN. Mary Trujillo NP notified via [employer] message.
[2021-05-26] MEDS: Atorvastatin Calcium 40 MG TABLET PO (21:42)
[2021-05-26] MEDS: Sennosides 8.6 MG TABLET 17.2 MG PO (21:42)
[2021-05-27 03:39] VITALS: BP 139/51; PULSE 55; RESP 18; TEMP 36.9; O2SAT 95
[2021-05-27] MEDS: Omeprazole 20 MG CAPSULE.DR PO (05:15)
[2021-05-27 07:39] VITALS: BP 133/73; PULSE 60; RESP 18; TEMP 36.7; O2SAT 98
[2021-05-27] MEDS: Docusate Sodium 100 MG/10 ML LIQUID PO (08:11)
[2021-05-27 08:12] VITALS: PULSE 62
[2021-05-27] MEDS: Amiodarone HCL 200 MG TABLET PO (08:12)
[2021-05-27] MEDS: Aspirin Enteric Coated 81 MG TABLET.DR PO (08:12)
[2021-05-27] MEDS: Loratadine 10 MG TABLET PO (08:12)
[2021-05-27] MEDS: carvediloL 6.25 MG TABLET PO (08:12)
[2021-05-27] MEDS: Folic Acid 1 MG TABLET PO (08:12)
[2021-05-27] MEDS: Lactulose 20 GM/30 ML SOLUTION PO (08:12)
[2021-05-27] MEDS: Apixaban 5 MG TABLET PO (08:12)
[2021-05-27] MEDS: 0.9 % Sodium Chloride Flush 3 ML SYRINGE IVFLUSH (08:13)
[2021-05-27 11:24] VITALS: BP 116/59; PULSE 56; RESP 20; TEMP 36.7; O2SAT 97
--- NOTE | 2021-05-27 12:12 | MHC.CM.PN ---
transfer for today at 330 to [facility] message left for naresh larkin dc [phone]
== END 2021-05-27 16:00 | DRG 689 ==
LOC: HO.ED 13:46 → HO.EDOVER 17:29 → HO.IMC 05-26 07:14
PROVIDERS: Admitting Provider Physician Assistant Medical; Emergency Provider Emergency Medicine; Visit Provider Nurse Practitioner Acute Care
DX: N39.0 Urinary tract infection, site not specified (principal); I50.33 Acute on chronic diastolic (congestive) heart failure; G92.8 Other toxic encephalopathy; I48.21 Permanent atrial fibrillation; F01.50 Vascular dementia, unspecified severity, without behavioral disturbance, psychotic disturbance, mood disturbance, and anxiety; I49.5 Sick sinus syndrome; B96.4 Proteus (mirabilis) (morganii) as the cause of diseases classified elsewhere; Z95.810 Presence of automatic (implantable) cardiac defibrillator; Z20.822 Contact with and (suspected) exposure to COVID-19; Z88.2 Allergy status to sulfonamides; Z79.82 Long term (current) use of aspirin; Z79.01 Long term (current) use of anticoagulants; Z79.899 Other long term (current) drug therapy; Z66 Do not resuscitate
CPT/HCPCS: 36415; 36573; 70450; 71045; 71250; 76937; 80048; 80076; 81001; 82550; 82803; 83605; 83690; 83735; 83880; 84484; 85025; 87040; 87086; 87635; 93005; 96360; 99285; C1751; J1335; J2185

== ENCOUNTER 2021-06-12 14:27 | Inpatient (IN) | payer MEDICARE, OTHER, SELFPAY ==
--- NOTE | ~2021-06-12 | XR_ITS ---
EXAMINATION: XR CHEST CLINICAL INFORMATION: COVID+, follow up. Patient COMPARISON: Chest radiographs 05/23/2021, 05/20/2021, CT chest noncontrast 05/23/2021. TECHNIQUE: Portable upright AP view of the chest was obtained. FINDINGS: There are low lung volumes. Enlarged cardiopericardial silhouette with unipolar AICD is stable. The vascularity is normal. There is mild right volume loss with patchy airspace opacities increased from prior exam. Probable loculated fluid in posterior upper right fissure is stable. There is subtle stable airspace opacity and air bronchograms left base similar to prior study. XR/XR chest 1V IMPRESSION: 1. Increased airspace opacities and mild volume loss on right since prior imaging 05/23/2021. 2. Loculated fluid upper right oblique fissure and left base airspace opacity, stable.
[2021-06-12 14:47] VITALS: BP 96/64; PULSE 60; O2SAT 91
--- NOTE | 2021-06-12 15:14 | ECG_ITS ---
Test Reason : sob Blood Pressure : / mmHG Vent. Rate : 065 BPM Atrial Rate : 000 BPM P-R Int : 000 ms QRS Dur : 126 ms QT Int : 454 ms P-R-T Axes : 000 008 205 degrees QTc Int : 472 ms Atrial fibrillation Non-specific intra-ventricular conduction block Inferior infarct (cited on or before 01-AUG-2002) Cannot rule out Anteroseptal infarct (cited on or before 03-AUG-2002) T wave abnormality, consider lateral ischemia Abnormal ECG When compared with ECG of 23-MAY-2021 14:33, No significant change was found Referred By: Carlo Yu Electronically Signed By:ANA PETTIT MD
--- NOTE | 2021-06-12 15:14 | ED.AMS ---
HPI - Altered Mental Status General Chief Complaint: General Medical Stated Complaint: +COVID PER SNF,NO COMP FROM PT PER EMS Time Seen by Provider: 06/12/21 15:05 Source: EMS and RN notes reviewed Mode of arrival: EMS Limitations: altered mental status History of Present Illness HPI narrative: Patient 81 years old with dementia, AFib, HFrEF, ESBL UTI, last admission was 05/23/21 sent from [facility] as patient is COVID positive on arrival patient was saturating 89% at room air details are not available via patient was sent here for been COVID positive with pneumonia for further treatment patient was saturating 89% at room air patient denied any complaints dementia alert oriented x1 only per records and family patient already got the booster dose the COVID-19 also when he was admitted here 2 weeks ago multiple COVID tests were negative Related Data Home Medications Medication Instructions Recorded Confirmed alendronate 70 mg tablet 1 tab PO MO 05/20/21 06/12/21 amiodarone 200 mg tablet 1 tab PO DAILY 05/20/21 06/12/21 aspirin 81 mg tablet,delayed 81 mg PO DAILY 05/20/21 06/12/21 release atorvastatin 40 mg tablet 1 tab PO BEDTIME 05/20/21 06/12/21 calcium carbonate 600 mg-vitamin 1 tab PO BID 05/20/21 06/12/21 D3 5 mcg (200 unit) tablet (Calcium 600 + D(3)) carvedilol 6.25 mg tablet 1 tab PO BID 05/20/21 06/12/21 fluvoxamine 100 mg tablet 1 tab PO BEDTIME 05/20/21 06/12/21 folic acid 1 mg tablet 1 tab PO DAILY 05/20/21 06/12/21 lactulose 10 gram/15 mL oral 20 ml PO DAILY PRN 05/20/21 06/12/21 solution melatonin 5 mg tablet 5 mg PO BEDTIME PRN 05/20/21 06/12/21 omeprazole 20 mg capsule,delayed 1 cap PO DAILY 05/20/21 06/12/21 release potassium chloride 20 mEq 1 tab PO DAILY 05/20/21 06/12/21 tablet,extended release(part/cryst) quetiapine 25 mg tablet 12.5 mg PO DAILY 05/20/21 06/12/21 quetiapine 25 mg tablet 25 mg PO BEDTIME 05/20/21 06/12/21 sennosides 8.6 mg tablet (Natural 17.2 mg PO BEDTIME 05/20/21 06/12/21 Senna Laxative) trazodone 50 mg tablet 1 tab PO BEDTIME 05/20/21 06/12/21 loratadine 10 mg tablet 10 mg PO DAILY 05/23/21 06/12/21 lidocaine 4 % topical cream 1 appl TOPICAL QAM PRN 06/12/21 06/12/21 methylcellulose (laxative) 500 mg 500 mg PO DAILY 06/12/21 06/12/21 tablet Previous Rx's Medication Instructions Recorded linaclotide 290 mcg capsule 290 mcg PO QAM #30 cap 03/04/21 (Linzess) apixaban 5 mg tablet (Eliquis) 5 mg PO BID 30 Days #60 tab 05/22/21 furosemide 40 mg tablet (Lasix) 40 mg PO BID 30 Days #60 tab 05/22/21 Allergies Allergy/AdvReac Type Severity Reaction Status Date / Time simvastatin [Zocor] Allergy Unknown Unknown Verified 05/26/21 12:05 Sulfa (Sulfonamide Allergy Unknown Unknown Verified 05/26/21 12:05 Antibiotics) DETERGENT Allergy Mild ITCHING Uncoded 05/26/21 12:05 SEASONAL ALLERGIES Allergy Mild RUNNY NOSE Uncoded 02/22/20 16:32 SNEEZING Review of Systems Review of Systems: Yes all other systems are reviewed and are negative [facility] Past Medical History Medical History Afib Cardiac defibrillator in place CHF (congestive heart failure) Constipation Coronary artery disease HLD (hyperlipidemia) HTN (hypertension) Low back pain Myocardial infarct Osteoporosis Sick sinus syndrome Vascular dementia Vitamin D deficiency Surgical History History of permanent cardiac pacemaker placement Family History Family History Other CAD (coronary artery disease) Social History Social History Household Members: None Housing: Assisted Living Facility Do you presently have visiting nurse or other home services: No Unable to assess alcohol history related to: Unknown Alcohol intake: unknown Patient Tobacco Use Status: Former Tobacco user Quit Date: 20 years ago Tobacco use type: Cigarette Years Smoked: 50 years Advance Directives: Yes Advance Directives on File: Yes Advance Directives Date on File: 12/30/20 service: Yes Current occupational status: retired Physical Exam Vital Signs: Vital Signs: Last Vital Signs Temp 98.5 F 06/12/21 16:18 Pulse 68 06/12/21 17:56 Resp 26 H 06/12/21 17:56 BP 102/72 06/12/21 17:56 Pulse Ox 97 06/12/21 17:56 BMI result Body Mass Index 26.0 Appearance: Alert. Oriented X1-2. No acute distress. Eyes: No pallor/icterus ENT: Pharynx normal. Oral Mucosa moist Neck: Normal inspection. Neck supple. CVS: Irregular irregular heart rate no murmur or gallop Pulses normal. Respiratory: No respiratory distress. Equal air entry bilateral, no wheezing/rhonchi occasional rales Abdomen: Soft and nontender. Bowel sounds are present, no mass palpable, no CVA tenderness Skin: Skin warm and dry. Normal skin color. Normal skin turgor. Extremities: No lower extremity edema. No calf tenderness Neuro: Oriented X 1-2. No motor deficit. No sensory deficit.No cerebellar signs , MDM - Altered Mental Status MDM Narrative Medical decision making narrative: Patient with COVID pneumonia with hypoxia of 89% at room air came from [facility] for further management including remdesivir per [facility] physician. Will admit patient for ID consultation for further management including monoclonal antibodies/remdesivir for now will give him Decadron will check the Medical Records Attestation: I reviewed the patient's medical records. Lab Data Attestation: I reviewed the patient's lab results. Result diagrams: 06/12/21 16:31 06/12/21 16:31 Labs: Lab Results 06/12/21 06/12/21 06/12/21 Range/Units 16:31 16:31 16:31 WBC 7.0 (4.8-10.8) X10*3/uL RBC 3.91 L (4.60-5.80) X10*6/uL Hgb 11.4 L (14.0-18.0) g/dl Hct 36.4 L (42.0-52.0) % MCV 93.1 (80.0-98.0) fL MCH 29.2 (27.0-33.0) pg MCHC 31.3 (31.0-36.0) g/dl RDW 14.0 (11.0-16.0) % Plt Count 200 (160-400) X10*3/uL MPV 8.7 L (9.4-12.4) fL Immature Gran % (Auto) 0.6 H (0.0-0.4) % Neut % (Auto) 81.4 H (45-73) % Lymph % (Auto) 8.2 L (20-40) % [place] % (Auto) 8.8 (2-11) % Eos % (Auto) 0.7 (0-4) % Baso % (Auto) 0.3 (0-2) % Lymph # (Auto) 0.6 L (1.2-4.9) X10*3/uL [place] # (Auto) 0.6 (0.1-1.2) X10*3/uL Eos # (Auto) 0.1 (0.0-0.4) X10*3/uL Baso # (Auto) 0.0 (0.0-0.2) X10*3/uL Abs Immat Gran (auto) 0.04 H (0.00-0.03) X10*3/uL Absolute Neuts (auto) 5.7 (2.0-8.3) x10*3/uL Absolute Nucleated RBC 0.000 (0.0-0.012) X10*3/uL Nucleated RBC % (auto) 0.0 (0.0-0.2) /100WBC D-Dimer High Sensitivty 282 NG/ML Sodium 136 (135-145) mmol/L Potassium 4.0 (3.3-5.1) mmol/L Chloride 104 (96-108) mmol/L Carbon Dioxide 22 (22-29) mmol/L Anion Gap 14 (12-20) BUN 22 H (9-16) mg/dL Creatinine 1.10 (0.5-1.4) mg/dL Estim Creat Clear Calc 56.8 Estimated GFR > 60 Random Glucose 113 D (60-115) mg/dL Lactic Acid (0.5-2.0) mmol/L Calcium 7.9 L (8.4-10.2) mg/dL Magnesium 2.1 (1.6-2.6) mg/dL Total Bilirubin 2.1 H (0.0-1.0) mg/dL AST 57 H (5-37) U/L ALT 46 H (0-40) U/L Alkaline Phosphatase 104 (39-117) U/L Total Protein 6.3 L (6.5-8.0) g/dL Albumin 2.8 L (3.5-5.0) g/dL COVID-19 (KYLE) (Negative) COVID-19 Clin Com 06/12/21 06/12/21 Range/Units 17:15 18:54 WBC (4.8-10.8) X10*3/uL RBC (4.60-5.80) X10*6/uL Hgb (14.0-18.0) g/dl Hct (42.0-52.0) % MCV (80.0-98.0) fL MCH (27.0-33.0) pg MCHC (31.0-36.0) g/dl RDW (11.0-16.0) % Plt Count (160-400) X10*3/uL MPV (9.4-12.4) fL Immature Gran % (Auto) (0.0-0.4) % Neut % (Auto) (45-73) % Lymph % (Auto) (20-40) % [place] % (Auto) (2-11) % Eos % (Auto) (0-4) % Baso % (Auto) (0-2) % Lymph # (Auto) (1.2-4.9) X10*3/uL [place] # (Auto) (0.1-1.2) X10*3/uL Eos # (Auto) (0.0-0.4) X10*3/uL Baso # (Auto) (0.0-0.2) X10*3/uL Abs Immat Gran (auto) (0.00-0.03) X10*3/uL Absolute Neuts (auto) (2.0-8.3) x10*3/uL Absolute Nucleated RBC (0.0-0.012) X10*3/uL Nucleated RBC % (auto) (0.0-0.2) /100WBC D-Dimer High Sensitivty NG/ML Sodium (135-145) mmol/L Potassium (3.3-5.1) mmol/L Chloride (96-108) mmol/L Carbon Dioxide (22-29) mmol/L Anion Gap (12-20) BUN (9-16) mg/dL Creatinine (0.5-1.4) mg/dL Estim Creat Clear Calc Estimated GFR Random Glucose (60-115) mg/dL Lactic Acid 1.5 (0.5-2.0) mmol/L Calcium (8.4-10.2) mg/dL Magnesium (1.6-2.6) mg/dL Total Bilirubin (0.0-1.0) mg/dL AST (5-37) U/L ALT (0-40) U/L Alkaline Phosphatase (39-117) U/L Total Protein (6.5-8.0) g/dL Albumin (3.5-5.0) g/dL COVID-19 (KYLE) Positive A (Negative) COVID-19 Clin Com See Note Discharge Plan Discharge Clinical Impression: Acute hypoxemic respiratory failure due to COVID-19 Patient Disposition: Admitted As Inpatient
[2021-06-12 16:18] VITALS: BP 112/54; PULSE 64; RESP 16; TEMP 36.9; O2SAT 89; BMI 26.0
[2021-06-12] MEDS: 0.9 % Sodium Chloride 1,000 ML 999 ML IV (16:32)
[2021-06-12 16:36] LABS: MANUAL DIFF FLAG NO
[2021-06-12 16:39] LABS: Basophils Percent Auto 0.3 % (0-2); Eosinophils Absolute Auto 0.1 X10*3/uL (0.0-0.4); Eosinophils Percent Auto 0.7 % (0-4); Hematocrit 36.4 % (42.0-52.0); Hemoglobin 11.4 g/dl (14.0-18.0); Imm Gran Abs Auto 0.04 X10*3/uL (0.00-0.03); Imm Gran Pct Auto 0.6 % (0.0-0.4); Lymphocytes Absolute Auto 0.6 X10*3/uL (1.2-4.9); Lymphocytes Percent Auto 8.2 % (20-40); Mean Corpuscular HGB Conc 31.3 g/dl (31.0-36.0); Mean Corpuscular Hemoglobin 29.2 pg (27.0-33.0); Mean Corpuscular Volume 93.1 fL (80.0-98.0); Mean Platelet Volume 8.7 fL (9.4-12.4); Monocytes Absolute Auto 0.6 X10*3/uL (0.1-1.2); Monocytes Percent Auto 8.8 % (2-11); Neutrophils Absolute Auto 5.7 x10*3/uL (2.0-8.3); Neutrophils Percent Auto 81.4 % (45-73); Platelet Count 200 X10*3/uL (160-400); Red Blood Count 3.91 X10*6/uL (4.60-5.80)
[2021-06-12 16:45] LABS: D Dimer High Sensitivity 282 NG/ML
[2021-06-12 16:53] LABS: Alanine Aminotransferase 46 U/L (0-40); Albumin Level 2.8 g/dL (3.5-5.0); Alkaline Phosphatase 104 U/L (39-117); Anion Gap 14 (12-20); Aspartate Amino Transferase 57 U/L (5-37); Bilirubin Total 2.1 mg/dL (0.0-1.0); Blood Urea Nitrogen 22 mg/dL (9-16); Calcium 7.9 mg/dL (8.4-10.2); Carbon Dioxide 22 mmol/L (22-29); Chloride 104 mmol/L (96-108); Creatinine Clr Calc Pharmacy 56.8; Estimated Glomerular Filt Rate > 60; Glucose Random 113 mg/dL (60-115); Magnesium 2.1 mg/dL (1.6-2.6); Sodium 136 mmol/L (135-145); Total Protein 6.3 g/dL (6.5-8.0)
[2021-06-12] MEDS: cefTRIAXone sodium 1 GM in 0.9 % Sodium Chloride 50 ML IV (17:15)
[2021-06-12 17:36] LABS: Lactic Acid 1.5 mmol/L (0.5-2.0)
[2021-06-12] MEDS: Albuterol/Iprat 2.5/0.5MG 3 ML AMPUL.NEB INHALE (17:36)
[2021-06-12 17:37] VITALS: PULSE 63; RESP 25; O2SAT 96
[2021-06-12] MEDS: dexAMETHasone sod phosphate 4 MG/ML VIAL 6 MG IVPUSH (17:55)
[2021-06-12 17:56] VITALS: BP 102/72; PULSE 68; RESP 26; O2SAT 97
[2021-06-12 19:10] LABS: COVID-19 Test Positive (Negative)
--- NOTE | 2021-06-12 21:34 | PHA.MEDREC ---
Pharmacy Consult ? Medication Reconciliation Pharmacy has completed the medication reconciliation.
[2021-06-12 22:47] VITALS: BP 111/57; PULSE 57; RESP 15; TEMP 36.8; O2SAT 99
--- NOTE | 2021-06-12 23:29 | P.HPHOSP_ITS ---
History of Present Illness Date of Service: 06/12/21 Chief Complaint: Shortness of breath 81-year-old male with a past medical history of hypertension, hyperlipidemia, atrial fibrillation on Eliquis, amiodarone, CHF on Lasix b.i.d. CAD, depression, osteoporosis on Fosamax once a month vascular dementia, sick sinus syndrome, status post AICD, COVID-19 vaccinated with Pfizer vaccine in June of 2020 received booster in March 2021; presented to the hospital from long-term care the chief complaint of COVID infection/hypoxia. Patient has dementia, lying in the bed comfortably; on supplemental oxygen; Most of the history obtained from the records and the ER staff Reportedly patient was sent from the residential after being diagnosed with COVID-19 positive. Patient on presentation noted to be hypoxic to 89%; placed on supplemental oxygen; Chest x-ray showed multifocal pneumonia-given antibiotics. Review of all other systems is limited PMFSH Medical History Afib Cardiac defibrillator in place CHF (congestive heart failure) Constipation Coronary artery disease HLD (hyperlipidemia) HTN (hypertension) Low back pain Myocardial infarct Osteoporosis Sick sinus syndrome Vascular dementia Vitamin D deficiency Family History Other CAD (coronary artery disease) Surgical History History of permanent cardiac pacemaker placement Social History Household Members: None Housing: Assisted Living Facility Do you presently have visiting nurse or other home services: No Unable to assess alcohol history related to: Unknown Alcohol intake: unknown Patient Tobacco Use Status: Former Tobacco user Quit Date: 20 years ago Tobacco use type: Cigarette Years Smoked: 50 years Advance Directives: Yes Advance Directives on File: Yes Advance Directives Date on File: 12/30/20 service: Yes Current occupational status: retired Meds Allergies Allergy/AdvReac Type Severity Reaction Status Date / Time simvastatin [Zocor] Allergy Unknown Unknown Verified 05/26/21 12:05 Sulfa (Sulfonamide Allergy Unknown Unknown Verified 05/26/21 12:05 Antibiotics) DETERGENT Allergy Mild ITCHING Uncoded 05/26/21 12:05 SEASONAL ALLERGIES Allergy Mild RUNNY NOSE Uncoded 02/22/20 16:32 SNEEZING Active Medications: Current Medications Acetaminophen (Acetaminophen 325 Mg Tablet) 650 mg PO Q6H PRN PRN Reason: Pain, Mild (Pain Scale 1-3) Amiodarone HCl (Amiodarone Hcl 200 Mg Tablet) 200 mg PO DAILY [facility] Apixaban (Apixaban 5 Mg Tablet) 5 mg PO BID [facility] Aspirin (Aspirin Enteric Coated 81 Mg Tablet.) 81 mg PO DAILY [facility] Atorvastatin Calcium (Atorvastatin Calcium 40 Mg Tablet) 40 mg PO BEDTIME SARAH Carvedilol (Carvedilol 6.25 Mg Tablet) 6.25 mg PO BID [facility]; Protocol Folic Acid (Folic Acid 1 Mg Tablet) 1 mg PO DAILY SARAH Furosemide (Furosemide 40 Mg Tablet) 40 mg PO BID SARAH; Protocol Vancomycin HCl 1,000 mg/ (Sodium Chloride) 270 mls @ 270 mls/hr IV Q12H [facility] Piperacillin Sod/Tazobactam (Sod 3.375 gm/ Sodium Chloride) 50 mls @ 100 mls/hr IV Q6H [facility] Lactulose (Lactulose 20 Gm/30 Ml Solution) 13.333 gm PO DAILY PRN PRN Reason: Constipation Loratadine (Loratadine 10 Mg Tablet) 10 mg PO DAILY [facility] Melatonin (Melatonin 3 Mg Tablet) 6 mg PO BEDTIME PRN PRN Reason: Insomnia Morphine Sulfate (Morphine Sulfate 4 Mg/Ml Cartridge) 1 mg IVPUSH Q4H PRN; Protocol PRN Reason: Pain, SOB Non-Formulary Medication (Fluvoxamine) 1 tab PO BEDTIME [facility] Non-Formulary Medication (Linaclotide [Linzess]) 290 mcg PO QAM [facility] Omeprazole (Omeprazole 20 Mg Capsule.) 20 mg PO DAILY [facility] Pharmacy Consult (Consult Rx Perform Med Rec) 1 each MISCELLANE ONCE PRN PRN Reason: Consult order Pharmacy Consult (Consult Rx Vancomycin Dosing) 1 each MISCELLANE DAILY PRN PRN Reason: Consult order Quetiapine Fumarate (Quetiapine Fumarate 25 Mg Tablet) 12.5 mg PO DAILY [facility] Quetiapine Fumarate (Quetiapine Fumarate 25 Mg Tablet) 25 mg PO BEDTIME [facility] Senna (Sennosides 8.6 Mg Tablet) 17.2 mg PO BEDTIME PRN PRN Reason: Constipation Sodium Chloride (0.9 % Sodium Chloride Flush 3 Ml Syringe) 3 ml IVFLUSH [facility] Trazodone HCl (Trazodone Hcl 50 Mg Tablet) 50 mg PO BEDTIME [facility] Home Medications Medication Instructions Recorded Confirmed Last Taken Type alendronate 70 mg tablet 1 tab PO MO 05/20/21 06/12/21 06/09/21 History amiodarone 200 mg tablet 1 tab PO DAILY 05/20/21 06/12/21 06/12/21 History aspirin 81 mg tablet,delayed 81 mg PO DAILY 05/20/21 06/12/21 06/12/21 History release atorvastatin 40 mg tablet 1 tab PO BEDTIME 05/20/21 06/12/21 06/12/21 History calcium carbonate 600 mg-vitamin 1 tab PO BID 05/20/21 06/12/21 06/12/21 History D3 5 mcg (200 unit) tablet (Calcium 600 + D(3)) carvedilol 6.25 mg tablet 1 tab PO BID 05/20/21 06/12/21 06/12/21 History fluvoxamine 100 mg tablet 1 tab PO BEDTIME 05/20/21 06/12/21 06/11/21 History folic acid 1 mg tablet 1 tab PO DAILY 05/20/21 06/12/21 06/12/21 History lactulose 10 gram/15 mL oral 20 ml PO DAILY PRN 05/20/21 06/12/21 06/12/21 History solution melatonin 5 mg tablet 5 mg PO BEDTIME PRN 05/20/21 06/12/21 06/11/21 History omeprazole 20 mg capsule,delayed 1 cap PO DAILY 05/20/21 06/12/21 06/12/21 History release potassium chloride 20 mEq 1 tab PO DAILY 05/20/21 06/12/21 06/12/21 History tablet,extended release(part/cryst) quetiapine 25 mg tablet 12.5 mg PO DAILY 05/20/21 06/12/21 06/12/21 History quetiapine 25 mg tablet 25 mg PO BEDTIME 05/20/21 06/12/21 06/11/21 History sennosides 8.6 mg tablet (Natural 17.2 mg PO BEDTIME 05/20/21 06/12/21 06/11/21 History Senna Laxative) trazodone 50 mg tablet 1 tab PO BEDTIME 05/20/21 06/12/21 06/11/21 History loratadine 10 mg tablet 10 mg PO DAILY 05/23/21 06/12/21 06/12/21 History lidocaine 4 % topical cream 1 appl TOPICAL QAM PRN 06/12/21 06/12/21 Unknown History methylcellulose (laxative) 500 mg 500 mg PO DAILY 06/12/21 06/12/21 06/12/21 History tablet Physical Exam Vital Signs and Narrative: Vital Signs: Last Vital Signs Temp 98.2 F 06/12/21 22:47 Pulse 57 06/12/21 22:47 Resp 15 06/12/21 22:47 BP 111/57 L 06/12/21 22:47 Pulse Ox 99 06/12/21 22:47 BMI result Body Mass Index 26.0 Gen: Appears be in no acute distress. On supplemental oxygen. Breathing HEENT: NCAT, Moist mucosa. Pulmonary: Coarse breath sounds CVS: Normal S1-S2 Abdomen: BS+, Soft, Nontender Extremities: Warm well perfused Neuro: Drowsy. Oriented x1. Moves all extremities spontaneously. Results Labs CBC and Chem 7: 06/12/21 16:31 06/12/21 16:31 Labs: Laboratory Results - last 24 hr 06/12/21 06/12/21 06/12/21 16:31 16:31 16:31 MCV 93.1 MCH 29.2 MCHC 31.3 RDW 14.0 Plt Count 200 MPV 8.7 L Immature Gran % (Auto) 0.6 H Neut % (Auto) 81.4 H Lymph % (Auto) 8.2 L [place] % (Auto) 8.8 Eos % (Auto) 0.7 Baso % (Auto) 0.3 Lymph # (Auto) 0.6 L [place] # (Auto) 0.6 Eos # (Auto) 0.1 Baso # (Auto) 0.0 Abs Immat Gran (auto) 0.04 H Absolute Neuts (auto) 5.7 Absolute Nucleated RBC 0.000 Nucleated RBC % (auto) 0.0 D-Dimer High Sensitivty 282 Anion Gap 14 Estim Creat Clear Calc 56.8 Estimated GFR > 60 Random Glucose 113 D Lactic Acid Calcium 7.9 L Magnesium 2.1 Total Bilirubin 2.1 H AST 57 H ALT 46 H Alkaline Phosphatase 104 Total Protein 6.3 L Albumin 2.8 L COVID-19 (KYLE) COVID-19 Clin Com 06/12/21 06/12/21 17:15 18:54 MCV MCH MCHC RDW Plt Count MPV Immature Gran % (Auto) Neut % (Auto) Lymph % (Auto) [place] % (Auto) Eos % (Auto) Baso % (Auto) Lymph # (Auto) [place] # (Auto) Eos # (Auto) Baso # (Auto) Abs Immat Gran (auto) Absolute Neuts (auto) Absolute Nucleated RBC Nucleated RBC % (auto) D-Dimer High Sensitivty Anion Gap Estim Creat Clear Calc Estimated GFR Random Glucose Lactic Acid 1.5 Calcium Magnesium Total Bilirubin AST ALT Alkaline Phosphatase Total Protein Albumin COVID-19 (KYLE) Positive A COVID-19 Clin Com See Note Imaging Radiologist's Impressions: Impressions Chest X-Ray 06/12/21 15:25 IMPRESSION: 1. Increased airspace opacities and mild volume loss on right since prior imaging 05/23/2021. 2. Loculated fluid upper right oblique fissure and left base airspace opacity, stable. Assessment and Plan (1) Acute hypoxemic respiratory failure due to COVID-19: Status: Acute (2) Acute on chronic heart failure with preserved ejection fraction (HFpEF): Status: Acute 81-year-old male with a past medical history of hypertension, hyperlipidemia, CAD, CHF, AFib on Eliquis, vascular dementia, history of ESBL UTI-recently finished a course of ertapenem for 14 days via PICC line; tested positive for COVID-19 at the residential sent to the hospital for further evaluation. Noted to have COVID-19 pneumonia, saturating at 89% on presentation. Admitted for further management. COVID-19 pneumonia: Will give the patient on broad-spectrum antibiotics including IV vancomycin and Zosyn. Continue Decadron. ID consult for further recommendations. Continue supplemental oxygen. History of CHF: Stable. Continue home Lasix. Continue home carvedilol History of AFib: Rate controlled. Continue home Eliquis, amiodarone History of dementia: Continue home Seroquel Diet: Speech and swallow eval. Medications given crushed at residential High risk of fall-fall precautions Code status: DNR/DNI. Okay to use CPAP. Patient has MOLST form Healthcare proxy: Fouzia- [phone] Quality Stroke Does the patient have a stroke diagnosis?: No VTE Prior VTE?: No VTE Risk Level:: Medical - moderate - high VTE Device Contraindication: Treatment Not Indicated VTE Drug Contraindication: N/A - Med Ordered
[2021-06-13 01:30] VITALS: BP 109/50; PULSE 62; RESP 15; O2SAT 96
[2021-06-13] MEDS: Piperacillin Sodium/Tazobactam 3.375 GM in 0.9 % Sodium Chloride 50 ML IV ×3 (01:31→12:15)
[2021-06-13] MEDS: vancomycin HCL 1,500 MG in 0.9 % Sodium Chloride 500 ML 333.33 MG IV (02:41)
[2021-06-13 05:50] VITALS: BP 124/67; PULSE 62; RESP 18; O2SAT 99
[2021-06-13 06:46] LABS: MANUAL DIFF FLAG NO
[2021-06-13 06:51] LABS: Hematocrit 36.5 % (42.0-52.0); Hemoglobin 11.7 g/dl (14.0-18.0); Imm Gran Abs Auto 0.03 X10*3/uL (0.00-0.03); Imm Gran Pct Auto 0.6 % (0.0-0.4); Lymphocytes Absolute Auto 0.4 X10*3/uL (1.2-4.9); Lymphocytes Percent Auto 7.2 % (20-40); Mean Corpuscular HGB Conc 32.1 g/dl (31.0-36.0); Mean Corpuscular Hemoglobin 29.5 pg (27.0-33.0); Mean Corpuscular Volume 92.2 fL (80.0-98.0); Mean Platelet Volume 8.9 fL (9.4-12.4); Monocytes Absolute Auto 0.2 X10*3/uL (0.1-1.2); Monocytes Percent Auto 3.9 % (2-11); Neutrophils Absolute Auto 4.5 x10*3/uL (2.0-8.3); Neutrophils Percent Auto 88.3 % (45-73); Platelet Count 197 X10*3/uL (160-400); Red Blood Count 3.96 X10*6/uL (4.60-5.80); Red Cell Distribution Width 13.6 % (11.0-16.0); White Blood Count 5.1 X10*3/uL (4.8-10.8)
[2021-06-13 07:04] VITALS: BP 124/63; PULSE 64; O2SAT 95
[2021-06-13 07:11] LABS: Anion Gap 10 (12-20); Blood Urea Nitrogen 23 mg/dL (9-16); Calcium 7.6 mg/dL (8.4-10.2); Carbon Dioxide 22 mmol/L (22-29); Chloride 109 mmol/L (96-108); Creatinine Clr Calc Pharmacy 70.2; Estimated Glomerular Filt Rate > 60; Glucose Random 132 mg/dL (60-115); Potassium 3.7 mmol/L (3.3-5.1); Sodium 137 mmol/L (135-145)
[2021-06-13] MEDS: 0.9 % Sodium Chloride Flush 3 ML SYRINGE IVFLUSH (07:51)
[2021-06-13 08:36] LABS: Procalcitonin 0.06 ng/mL
[2021-06-13 09:08] VITALS: BP 127/61; PULSE 60; RESP 24; TEMP 35.8; O2SAT 93
[2021-06-13] MEDS: Furosemide 40 MG TABLET PO (09:11)
[2021-06-13] MEDS: carvediloL 6.25 MG TABLET PO (10:19)
[2021-06-13] MEDS: QUEtiapine Fumarate 25 MG TABLET 12.5 MG PO (10:19)
[2021-06-13] MEDS: Folic Acid 1 MG TABLET PO (10:19)
[2021-06-13] MEDS: Omeprazole 20 MG CAPSULE.DR PO (10:20)
[2021-06-13] MEDS: Apixaban 5 MG TABLET PO (10:20)
[2021-06-13] MEDS: Aspirin Enteric Coated 81 MG TABLET.DR PO (10:20)
[2021-06-13] MEDS: Amiodarone HCL 200 MG TABLET PO (10:20)
[2021-06-13] MEDS: Loratadine 10 MG TABLET PO (10:20)
--- NOTE | 2021-06-13 12:04 | MHC.CM.PN ---
Attempted to meet with patient in regards to discharge planning. Patient has a history of advanced dementia. Spoke with patient's daughter/HCP, Fouzia via telephone at [phone]. Patient is a assisted care resident of [facility]. Anticipate patient will return via BLS when medically stable. Copy of HCP & MOLST verified to be on file. IMM explained and sent via certified mail. Patient tested positive for Covid on 06/12. Continue to monitor for d/c needs.
[2021-06-13 14:07] VITALS: BP 108/65; PULSE 56; RESP 21; TEMP 35.9; O2SAT 93
[2021-06-13 15:17] LABS: Appearance Urine CLEAR; Color Urine DK YELLOW; Glucose Urine UA NEG (NEG); Leukocyte Esterase Urine NEG (NEG); Nitrite Urine NEG (NEG); PH 5.5 (5.0-8.0); Specific Gravity - Urine 1.025 (1.005-1.025); Urine Blood NEG (NEG); Urine Ketones NEG (NEG); Urine Protein NEG (NEG-TRACE)
--- NOTE | 2021-06-13 16:07 | P.DS_ITS ---
DS: Providers Provider Date of Service: 06/13/21 Date of admission: 06/12/21 23:23 Primary care physician: Unknown Physician Consults: 06/12/21 23:23 Consult to Infectious Diseases Routine Consulting Provider: Shannan Bates Reason for consultation: covid PNA DS: Diagnosis Discharge Diagnosis (1) Acute hypoxemic respiratory failure due to COVID-19: Status: Acute (2) Acute on chronic heart failure with preserved ejection fraction (HFpEF): Status: Acute DS: Summary Hospital Course Hospital Course: Chief Complaint: Shortness of breath 81-year-old male with a past medical history of hypertension, hyperlipidemia, atrial fibrillation on Eliquis, amiodarone, CHF on Lasix b.i.d. CAD, depression, osteoporosis on Fosamax once a month vascular dementia, sick sinus syndrome, status post AICD, COVID-19 vaccinated with Pfizer vaccine in June of 2020 received booster in March 2021; presented to the hospital from long-term care the chief complaint of COVID infection/hypoxia. Patient has dementia, lying in the bed comfortably; on supplemental oxygen; Most of the history obtained from the records and the ER staff Reportedly [facility] after being diagnosed with COVID-19 positive. Patient on presentation noted to be hypoxic to 89%; placed on supplemental oxygen; Chest x-ray showed multifocal pneumonia-given antibiotics.? Hospital course 81-year-old gentleman admitted with a diagnosis of COVID-19 infection and hypoxia noted to have finger oximetry 89% patient placed on supplemental oxygen, Decadron and IV antibiotics, patient evaluated by Infectious Disease and due to elevated LFTs does not qualify for remdesivir since patient remained hemodynamically stable with oxygenation staying stable between 93-99 % he is being discharged home to finish 10 day course of Decadron, recommended to check oxygenation 3 times a day, continue all home medications as before, procalcitonin of 0.06 patient does not qualify for antibiotic patient afebrile with normal WBC count. Time Spent with Patient Time attestation: Total time spent providing and/or coordinating discharge services: Discharge coordination time: Greater than 30 minutes Quality: Stroke Does the patient have a stroke diagnosis?: No Physical Exam Vital Signs: Vital Signs: Last Vital Signs Temp 96.7 F L 06/13/21 14:07 Pulse 56 06/13/21 14:07 Resp 21 H 06/13/21 14:07 BP 108/65 06/13/21 14:07 Pulse Ox 93 06/13/21 14:07 BMI result Body Mass Index 26.0 Gen: Awake alert in no acute distress.? HEENT:? Moist mucosa. Pulmonary:? No respiratory distress, Coarse breath sounds,no rales CVS:? Normal S1-S2 Abdomen: BS+, Soft, Nontender Extremities: No edema Neuro: Awake alert, speech clear Skin no rash DS: Data Data Completed and Pending Completed studies during hospitalization [Text1]: Procedures Insertion of Infusion Device into Superior Vena Cava, Percutaneous Approach (05/23/21) Labs on day of discharge: Laboratory Results - last 24 hr 06/12/21 06/12/21 06/12/21 16:31 16:31 16:31 WBC 7.0 RBC 3.91 L Hgb 11.4 L Hct 36.4 L MCV 93.1 MCH 29.2 MCHC 31.3 RDW 14.0 Plt Count 200 MPV 8.7 L Immature Gran % (Auto) 0.6 H Neut % (Auto) 81.4 H Lymph % (Auto) 8.2 L [place] % (Auto) 8.8 Eos % (Auto) 0.7 Baso % (Auto) 0.3 Lymph # (Auto) 0.6 L [place] # (Auto) 0.6 Eos # (Auto) 0.1 Baso # (Auto) 0.0 Abs Immat Gran (auto) 0.04 H Absolute Neuts (auto) 5.7 Absolute Nucleated RBC 0.000 Nucleated RBC % (auto) 0.0 D-Dimer High Sensitivty 282 Sodium 136 Potassium 4.0 Chloride 104 Carbon Dioxide 22 Anion Gap 14 BUN 22 H Creatinine 1.10 Estim Creat Clear Calc 56.8 Estimated GFR > 60 Random Glucose 113 D Lactic Acid Calcium 7.9 L Magnesium 2.1 Total Bilirubin 2.1 H AST 57 H ALT 46 H Alkaline Phosphatase 104 Total Protein 6.3 L Albumin 2.8 L Procalcitonin Urine Color Urine Appearance Urine pH Ur Specific [place] Urine Protein Urine Glucose (UA) Urine Ketones Urine Blood Urine Nitrite Ur Leukocyte Esterase COVID-19 (KYLE) COVID-19 Clin Com 06/12/21 06/12/21 06/13/21 17:15 18:54 06:32 WBC 5.1 RBC 3.96 L Hgb 11.7 L Hct 36.5 L MCV 92.2 MCH 29.5 MCHC 32.1 RDW 13.6 Plt Count 197 MPV 8.9 L Immature Gran % (Auto) 0.6 H Neut % (Auto) 88.3 H Lymph % (Auto) 7.2 L [place] % (Auto) 3.9 Eos % (Auto) 0.0 Baso % (Auto) 0.0 Lymph # (Auto) 0.4 L [place] # (Auto) 0.2 Eos # (Auto) 0.0 Baso # (Auto) 0.0 Abs Immat Gran (auto) 0.03 Absolute Neuts (auto) 4.5 Absolute Nucleated RBC 0.000 Nucleated RBC % (auto) 0.0 D-Dimer High Sensitivty Sodium Potassium Chloride Carbon Dioxide Anion Gap BUN Creatinine Estim Creat Clear Calc Estimated GFR Random Glucose Lactic Acid 1.5 Calcium Magnesium Total Bilirubin AST ALT Alkaline Phosphatase Total Protein Albumin Procalcitonin Urine Color Urine Appearance Urine pH Ur Specific [place] Urine Protein Urine Glucose (UA) Urine Ketones Urine Blood Urine Nitrite Ur Leukocyte Esterase COVID-19 (KYLE) Positive A COVID-19 Clin Com See Note 06/13/21 06/13/21 06/13/21 06:32 06:32 15:06 WBC RBC Hgb Hct MCV MCH MCHC RDW Plt Count MPV Immature Gran % (Auto) Neut % (Auto) Lymph % (Auto) [place] % (Auto) Eos % (Auto) Baso % (Auto) Lymph # (Auto) [place] # (Auto) Eos # (Auto) Baso # (Auto) Abs Immat Gran (auto) Absolute Neuts (auto) Absolute Nucleated RBC Nucleated RBC % (auto) D-Dimer High Sensitivty Sodium 137 Potassium 3.7 Chloride 109 H Carbon Dioxide 22 Anion Gap 10 L BUN 23 H Creatinine 0.89 Estim Creat Clear Calc 70.2 Estimated GFR > 60 Random Glucose 132 H Lactic Acid Calcium 7.6 L Magnesium Total Bilirubin AST ALT Alkaline Phosphatase Total Protein Albumin Procalcitonin 0.06 Urine Color DK YELLOW Urine Appearance CLEAR Urine pH 5.5 Ur Specific [place] 1.025 Urine Protein NEG Urine Glucose (UA) NEG Urine Ketones NEG Urine Blood NEG Urine Nitrite NEG Ur Leukocyte Esterase NEG COVID-19 (KYLE) COVID-19 Clin Com Discharge Plan Discharge Patient Disposition: er LTC Discharge Diagnosis: Acute hypoxic respiratory failure due to COVID-19 Referrals: [facility] [Outside] - 1 Week Physician,Unknown J [Primary Care Provider] - 1 Week Discharge Medications: New dexamethasone [Decadron] 6 mg tablet 6 mg PO DAILY Qty: 8 RF: 0 Continued loratadine 10 mg Tablet 10 mg PO DAILY RF: 0 lidocaine 4 % Cream 1 appl TOPICAL QAM PRN (Reason: Pain) RF: 0 methylcellulose (laxative) 500 mg Tablet 500 mg PO DAILY RF: 0 quetiapine 25 mg Tablet 25 mg PO BEDTIME RF: 0 calcium carbonate-vitamin D3 [Calcium 600 + D(3)] 600 mg-5 mcg (200 unit) Tablet 1 tab PO BID RF: 0 aspirin 81 mg Tablet,Delayed Release (Dr/Ec) 81 mg PO DAILY RF: 0 melatonin 5 mg Tablet 5 mg PO BEDTIME PRN (Reason: Insomnia) RF: 0 sennosides [Natural Senna Laxative] 8.6 mg tablet 17.2 mg PO BEDTIME RF: 0 atorvastatin 40 mg tablet 1 tab PO BEDTIME RF: 0 carvedilol 6.25 mg tablet 1 tab PO BID RF: 0 amiodarone 200 mg tablet 1 tab PO DAILY RF: 0 alendronate 70 mg tablet 1 tab PO MO RF: 0 fluvoxamine 100 mg tablet 1 tab PO BEDTIME RF: 0 folic acid 1 mg tablet 1 tab PO DAILY RF: 0 lactulose 10 gram/15 mL solution 20 ml PO DAILY PRN (Reason: Constipation) RF: 0 quetiapine 25 mg Tablet 12.5 mg PO DAILY RF: 0 omeprazole 20 mg capsule,delayed release(DR/EC) 1 cap PO DAILY RF: 0 trazodone 50 mg tablet 1 tab PO BEDTIME RF: 0 potassium chloride 20 mEq tablet,ER particles/crystals 1 tab PO DAILY RF: 0 Eliquis 5 mg tablet 5 mg PO BID 30 Days Qty: 60 RF: 0 furosemide [Lasix] 40 mg tablet 40 mg PO BID 30 Days Qty: 60 RF: 0 Linzess 290 mcg capsule 290 mcg PO QAM Qty: 30 RF: 4 Discharge Orders: Discharge Order (Routine); Ordered 06/13/21 Ordered By: Melchor Garcia Diet: advance to usual diet Activity on Discharge: As tolerated Stand Alone Forms: Patient Portal Discharge page Care Plan Goals: COVID-19 infection with mild hypoxia continue 2 L of oxygen take Decadron 6 mg by mouth daily for 8 more days with food, continue Prilosec for GI prophylaxis Check oxygenation 3 times a day, patient does not qualify for remdesivir due to elevated LFT Health Concerns: Recent episode of UTI, atrial fibrillation, status post cardiac defibrillator, history of coronary artery disease, hypertension, vascular dementia Plan of Treatment: Outpatient follow-up with primary care physician in next 7-10 days continue all home medication. Assessment: See discharge note
--- NOTE | 2021-06-13 16:28 | MHC.CM.PN ---
Message left with Fouzia, daughter. Pt will return to [facility] at 6pm via BLS. Facility aware. Nurse aware. CM to follow for d/c needs.
[2021-06-13] MEDS: dexAMETHasone sod phosphate 4 MG/ML VIAL 6 MG IVPUSH (17:01)
--- NOTE | 2021-06-13 21:20 | PC.NURSE ---
IV removed @21:19 from right forearm by this PCT. No complications.
== END 2021-06-13 20:00 | DRG 177 ==
LOC: HO.ED 18:51 → HO.EDOVER 23:35
PROVIDERS: Admitting Provider Hospitalist; Emergency Provider Internal Medicine; PCP Family Medicine; Visit Provider Hospitalist
DX: U07.1 COVID-19 (principal); J96.01 Acute respiratory failure with hypoxia; I50.33 Acute on chronic diastolic (congestive) heart failure; E78.5 Hyperlipidemia, unspecified; I48.91 Unspecified atrial fibrillation; I11.0 Hypertensive heart disease with heart failure; Z87.891 Personal history of nicotine dependence; F01.50 Vascular dementia, unspecified severity, without behavioral disturbance, psychotic disturbance, mood disturbance, and anxiety; Z95.810 Presence of automatic (implantable) cardiac defibrillator; Z88.2 Allergy status to sulfonamides; Z79.82 Long term (current) use of aspirin; Z79.01 Long term (current) use of anticoagulants; Z79.899 Other long term (current) drug therapy; Z66 Do not resuscitate
CPT/HCPCS: 36415; 71045; 80048; 80053; 81003; 83605; 83735; 84145; 85025; 85379; 87040; 87635; 93005; 94640; 96361; 96374; 96375; 99284; 99285; J0696; J1100; J2543; J3370

== ENCOUNTER 2021-09-09 20:16 | Emergency (ER) | payer MEDICARE, OTHER, SELFPAY ==
--- NOTE | ~2021-09-09 | XR_ITS ---
EXAMINATION: XR LUMBOSACRAL SPINE CLINICAL INFORMATION: Fall. Pain. COMPARISON: CT scan abdomen pelvis 12/27/2020 TECHNIQUE: Three views of the lumbosacral spine. FINDINGS: Stable chronic changes of severe compression deformities L1 and L2 compared with prior CAT scan of 12/27/2020. Status post vertebroplasty of L1. 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 No acute fracture. No subluxation.. There is multilevel facet joint arthrosis of lower lumbar spine. Vascular calcification of aorta without evidence for aneurysm. XR/XR lumbar spine 2-3V IMPRESSION: Old compression deformity L1 and L2. Multilevel degenerative spondylosis spine. No acute abnormality.
[2021-09-09 20:26] VITALS: BP 142/73; PULSE 74; O2SAT 97; BMI 24.2
[2021-09-09 20:27] VITALS: BP 151/78; PULSE 73; RESP 16; TEMP 36.6; O2SAT 97
--- NOTE | 2021-09-09 20:28 | ED.FALL ---
HPI - Fall General Chief Complaint: Fall Stated Complaint: fall/ back pain Time Seen by Provider: 09/09/21 20:24 Source: patient and EMS Mode of arrival: EMS Limitations: no limitations History of Present Illness HPI Narrative: Patient apparently sitting in his easy chair slipped and landed on his buttocks prior to arrival no head injury no other injuries complaining of lower back pain patient is on Eliquis but this no head injury no loss of consciousness patient denies any headache Related Data Home Medications Medication Instructions Recorded Confirmed alendronate 70 mg tablet 1 tab PO MO 05/20/21 06/12/21 amiodarone 200 mg tablet 1 tab PO DAILY 05/20/21 06/12/21 aspirin 81 mg tablet,delayed 81 mg PO DAILY 05/20/21 06/12/21 release atorvastatin 40 mg tablet 1 tab PO BEDTIME 05/20/21 06/12/21 calcium carbonate 600 mg-vitamin 1 tab PO BID 05/20/21 06/12/21 D3 5 mcg (200 unit) tablet (Calcium 600 + D(3)) carvedilol 6.25 mg tablet 1 tab PO BID 05/20/21 06/12/21 fluvoxamine 100 mg tablet 1 tab PO BEDTIME 05/20/21 06/12/21 folic acid 1 mg tablet 1 tab PO DAILY 05/20/21 06/12/21 lactulose 10 gram/15 mL oral 20 ml PO DAILY PRN 05/20/21 06/12/21 solution melatonin 5 mg tablet 5 mg PO BEDTIME PRN 05/20/21 06/12/21 omeprazole 20 mg capsule,delayed 1 cap PO DAILY 05/20/21 06/12/21 release potassium chloride 20 mEq 1 tab PO DAILY 05/20/21 06/12/21 tablet,extended release(part/cryst) quetiapine 25 mg tablet 12.5 mg PO DAILY 05/20/21 06/12/21 quetiapine 25 mg tablet 25 mg PO BEDTIME 05/20/21 06/12/21 sennosides 8.6 mg tablet (Natural 17.2 mg PO BEDTIME 05/20/21 06/12/21 Senna Laxative) trazodone 50 mg tablet 1 tab PO BEDTIME 05/20/21 06/12/21 loratadine 10 mg tablet 10 mg PO DAILY 05/23/21 06/12/21 lidocaine 4 % topical cream 1 appl TOPICAL QAM PRN 06/12/21 06/12/21 methylcellulose (laxative) 500 mg 500 mg PO DAILY 06/12/21 06/12/21 tablet Previous Rx's Medication Instructions Recorded linaclotide 290 mcg capsule 290 mcg PO QAM #30 cap 03/04/21 (Linzess) apixaban 5 mg tablet (Eliquis) 5 mg PO BID 30 Days #60 tab 05/22/21 furosemide 40 mg tablet (Lasix) 40 mg PO BID 30 Days #60 tab 05/22/21 dexamethasone 6 mg tablet 6 mg PO DAILY #8 tab 06/13/21 (Decadron) Allergies Allergy/AdvReac Type Severity Reaction Status Date / Time simvastatin [Zocor] Allergy Unknown Unknown Verified 05/26/21 12:05 Sulfa (Sulfonamide Allergy Unknown Unknown Verified 05/26/21 12:05 Antibiotics) DETERGENT Allergy Mild ITCHING Uncoded 05/26/21 12:05 SEASONAL ALLERGIES Allergy Mild RUNNY NOSE Uncoded 02/22/20 16:32 SNEEZING Review of Systems Review of Systems: Yes all other systems are reviewed and are negative PMFSH Past Medical History Medical History Acute on chronic heart failure with preserved ejection fraction (HFpEF) Afib Cardiac defibrillator in place CHF (congestive heart failure) Constipation Coronary artery disease HLD (hyperlipidemia) HTN (hypertension) Low back pain Myocardial infarct Osteoporosis Sick sinus syndrome Vascular dementia Vitamin D deficiency Surgical History History of permanent cardiac pacemaker placement Family History Family History Other CAD (coronary artery disease) Social History Social History Household Members: None Housing: Assisted Living Facility Do you presently have visiting nurse or other home services: No Unable to assess alcohol history related to: Unknown Alcohol intake: unknown Patient Tobacco Use Status: Former Tobacco user Quit Date: 20 years ago Tobacco use type: Cigarette Years Smoked: 50 years Advance Directives: Yes Advance Directives on File: Yes Advance Directives Date on File: 12/30/20 service: Yes Current occupational status: retired Physical Exam Vital Signs: Vital Signs: Last Vital Signs Temp 97.9 F 09/09/21 20:27 Pulse 73 09/09/21 20:27 Resp 16 09/09/21 20:27 BP 151/78 H 09/09/21 20:27 Pulse Ox 97 09/09/21 20:27 BMI result Body Mass Index 24.2 Appearance: Alert. Oriented X3. No acute distress. Eyes: PERRLA HEENT: Pharynx normal. Oral Mucosa moist atraumatic normocephalic Neck: Normal inspection. Neck supple. CVS: Normal heart rate and rhythm. Pulses normal. Respiratory: No respiratory distress. Equal air entry bilateral, no wheezing/rales/rhonchi Abdomen: Soft and nontender. Bowel sounds are present, no mass palpable Skin: Skin warm and dry. Normal skin color. Normal skin turgor. Extremities: No lower extremity edema. No calf tenderness diffuse lower spine tenderness pelvis stable good range of movement of bilateral hips Neuro: Oriented X 3. No motor deficit. MDM - Fall MDM Narrative Medical decision making narrative: Patient with minor injury when slipped out from PC chair x-ray of lumbar spine showed old compression fracture L1-L2. No acute fractures no acute signs of major injury patient able to move his hips bilaterally will discharge patient . Discharge Plan Discharge Clinical Impression: Fall Patient Disposition: Home, Self-Care Instructions: Fall Prevention for Older Adults (ED) Additional Instructions: No significant injuries noticed You have old compression fracture of lumbar vertebra Prescriptions: No Action loratadine 10 mg Tablet 10 mg PO DAILY 0RF lidocaine 4 % Cream 1 appl TOPICAL QAM PRN (Reason: Pain) 0RF methylcellulose (laxative) 500 mg Tablet 500 mg PO DAILY 0RF dexamethasone [Decadron] 6 mg tablet 6 mg PO DAILY Qty: 8 0RF quetiapine 25 mg Tablet 25 mg PO BEDTIME 0RF calcium carbonate-vitamin D3 [Calcium 600 + D(3)] 600 mg-5 mcg (200 unit) Tablet 1 tab PO BID 0RF aspirin 81 mg Tablet,Delayed Release (Dr/Ec) 81 mg PO DAILY 0RF melatonin 5 mg Tablet 5 mg PO BEDTIME PRN (Reason: Insomnia) 0RF sennosides [Natural Senna Laxative] 8.6 mg tablet 17.2 mg PO BEDTIME 0RF atorvastatin 40 mg tablet 1 tab PO BEDTIME 0RF carvedilol 6.25 mg tablet 1 tab PO BID 0RF amiodarone 200 mg tablet 1 tab PO DAILY 0RF alendronate 70 mg tablet 1 tab PO MO 0RF fluvoxamine 100 mg tablet 1 tab PO BEDTIME 0RF folic acid 1 mg tablet 1 tab PO DAILY 0RF lactulose 10 gram/15 mL solution 20 ml PO DAILY PRN (Reason: Constipation) 0RF quetiapine 25 mg Tablet 12.5 mg PO DAILY 0RF omeprazole 20 mg capsule,delayed release(DR/EC) 1 cap PO DAILY 0RF trazodone 50 mg tablet 1 tab PO BEDTIME 0RF potassium chloride 20 mEq tablet,ER particles/crystals 1 tab PO DAILY 0RF Eliquis 5 mg tablet 5 mg PO BID 30 Days Qty: 60 0RF furosemide [Lasix] 40 mg tablet 40 mg PO BID 30 Days Qty: 60 0RF Linzess 290 mcg capsule 290 mcg PO QAM Qty: 30 4RF
[2021-09-09 22:49] VITALS: BP 126/69; PULSE 70; RESP 16; TEMP 36.5; O2SAT 94
== END 2021-09-10 00:33 | disposition home or self-care (01) ==
PROVIDERS: Emergency Provider Internal Medicine
DX: M54.50 Low back pain, unspecified (principal); Z91.81 History of falling; I48.91 Unspecified atrial fibrillation; I10 Essential (primary) hypertension; E78.5 Hyperlipidemia, unspecified; Z79.01 Long term (current) use of anticoagulants; Z79.82 Long term (current) use of aspirin; Z79.02 Long term (current) use of antithrombotics/antiplatelets; Z95.810 Presence of automatic (implantable) cardiac defibrillator; Z87.891 Personal history of nicotine dependence
CPT/HCPCS: 72100; 99283